=== PATIENT | male | born 1950 | race Caucasian/White ===

== ENCOUNTER → 2016-11-29 | Outpatient (CLI) | payer OTHER ==
[~2016-11-29] VITALS: Ht 188 cm; Wt 113.4 kg
[~2016-11-29] MED LIST: ALPR-411 PO; ASPI81TA28 PO; ATOR-22 PO; CHOL2000 PO; ESCI10TA17 PO; MAGN1TAB41 PO; OMEG10007 PO; PANT40TA PO; PRD/1 PO; SUMA100T16 PO; TAMS0.4C38 PO; nasonex NAE
[2016-11-29 14:46] VITALS: BP 136/85; PULSE 58; Ht 188 cm; Wt 113.4 kg
== END | disposition home or self-care (01) ==
LOC: C.NEUR 14:26
PROVIDERS: ATTEND Internal Medicine Pulmonary Disease
DX: G47.33 Obstructive sleep apnea (adult) (pediatric) (principal)

== ENCOUNTER → 2017-01-01 | Outpatient (CLI) | payer OTHER ==
--- NOTE | 2017-01-07 07:11 | POLYSOMNOGRAPH REPORT ---
CLINICAL DATA: A 66-year-old male with BMI of 32.1, referred for evaluation of loud snoring which awakens him, apnea, restlessness, bruxism, profound fatigue, and daytime hypersomnolence. On the evening of 01/01/2017, a home sleep apnea test was performed using a [employer] type 3 monitor. RECORDING RESULTS: Total recording time was 10 hours. The patient's estimated sleep time and monitoring time was 7.2 hours. RESPIRATORY DATA: Mild sleep apnea was documented. The EVERARDO was 12. There were 18 obstructive apneic episodes and 68 hypopneic episodes recorded. The longest respiratory event was 36 seconds. OXIMETRY DATA: Nocturnal hypoxemia was seen. Oxygen alaina was 80%. Mean saturation was 91%. Time below 89% was 16 minutes. HEART RATE DATA: Heart rates ranged from 44 to 51 beats per minute. SNORING DATA: Snoring was recorded throughout the night. IMPRESSION: Mild obstructive sleep apnea/hypopnea with an EVERARDO of 12 with nocturnal hypoxemia. RECOMMENDATIONS: The patient may benefit from a repeat sleep study with CPAP, use of an oral appliance, or weight loss. Clinical correlation is needed. MARIA ELENA
== END | disposition home or self-care (01) ==
LOC: C.NEUR 15:24
PROVIDERS: ATTEND Internal Medicine Pulmonary Disease
DX: G47.33 Obstructive sleep apnea (adult) (pediatric) (principal)

== ENCOUNTER → 2017-06-02 | Outpatient (CLI) | payer OTHER ==
[~2017-06-02] MED LIST changes: +CEPH500C2 PO; +HYDR-5688 PO
[2017-06-02 19:07] LABS: BASO % 1.1 %; BASO ABS # 0.05 K/uL (0-0.2); COMPLETE YES; HEMATOCRIT 42.7 % (42-52); LYMPH % 32.3 %; LYMPH ABS # 1.52 K/uL (1.2-3.4); MEAN CELL VOLUME 88.2 fL (80-100); MEAN CORPUSCULAR HEMOGLOBIN 30.8 pg (25-34); MEAN CORPUSCULAR HGB CONC 34.9 g/dl (32-36); MONO % 10.6 %; PLATELET COUNT 189 K/uL (130-400); RED BLOOD COUNT 4.84 M/uL (4.7-6.1); WHITE BLOOD COUNT 4.71 K/uL (4.8-10.8)
[2017-06-02 19:28] LABS: ALT/SGPT 35 U/L (12-78); AST/SGOT 24 U/L (15-37); BLOOD UREA NITROGEN 16 mg/dl (7-18); BUN/CREATININE RATIO 12.9 (10-20); CALCIUM 8.7 mg/dl (8.5-10.1); CARBON DIOXIDE 28 mmol/L (21-32); CHLORIDE 107 mmol/L (98-107); CHOLESTEROL 196 mg/dl (0-200); GLUCOSE 97 mg/dl (70-99); SODIUM 142 mmol/L (136-145); TRIGLYCERIDES 163 mg/dl (0-150); VERY LOW DENSITY LIPOPROT CALC 33 mg/dl
[2017-06-02 19:33] LABS: ALB/GLOB RATIO 1.1 (0.9-2); ALKALINE PHOSPHATASE 58 U/L (45-117); CHOLESTEROL/HDL RATIO 3.8; HDL CHOLESTEROL 51 mg/dl; PROSTATE SPECIFIC ANTIGEN 0.597 ng/ml (0.000-4.000)
== END | disposition home or self-care (01) ==
LOC: C.LAB 17:54
PROVIDERS: ATTEND Internal Medicine
DX: E78.5 Hyperlipidemia, unspecified (principal); F32.9 Major depressive disorder, single episode, unspecified; K42.9 Umbilical hernia without obstruction or gangrene; R30.0 Dysuria; N40.0 Benign prostatic hyperplasia without lower urinary tract symptoms

== ENCOUNTER 2017-08-07 05:16 | Observation (INO) | payer OTHER ==
[2017-07-24 07:57] VITALS: BMI 32.0
--- NOTE | 2017-07-24 08:38 | PAT Medication Instructions ---
Service Date Jul 24, 2017. Current Home Medication List Alprazolam (Xanax), 0.5 MG PO HS Aspirin (Aspirin Ec), 81 MG PO QAM Atorvastatin (Lipitor), 20 MG PO HS Cholecalciferol (Vitamin D3), 1 CAP PO QAM Escitalopram (Lexapro), 10 MG PO HS Fish Oil ([place]-3), 1 CAP PO QAM Magnesium Oxide (Magnesium), 1 TAB PO QAM Pantoprazole (Protonix), 40 MG PO QAM Prednisone (Prednisone), Unknown Dose PO Sumatriptan Succinate (Imitrex), 100 MG PO PRN Tamsulosin Hcl (Flomax), 0.4 MG PO QAM [nasonex ], 2 PUFFS NICKI QAM Medication Instructions For Your Scheduled Surgery Prednisone (Prednisone), Unknown Dose PO (to be completed prior to surgery) - Check with surgeon for instructions: Aspirin (Aspirin Ec), 81 MG PO QAM - Hold the following medications starting 07/25/17: Fish Oil ([place]-3), 1 CAP PO QAM - Hold the following medications the morning of surgery: Tamsulosin Hcl (Flomax), 0.4 MG PO QAM Magnesium Oxide (Magnesium), 1 TAB PO QAM Cholecalciferol (Vitamin D3), 1 CAP PO QAM - Take the following medications the morning of surgery with a sip of water: [nasonex ], 2 PUFFS NICKI QAM Sumatriptan Succinate (Imitrex), 100 MG PO PRN (if needed) Pantoprazole (Protonix), 40 MG PO QAM Escitalopram (Lexapro), 10 MG PO HS - Take the following medications as scheduled the night before surgery: Sumatriptan Succinate (Imitrex), 100 MG PO PRN (if needed) Atorvastatin (Lipitor), 20 MG PO HS Alprazolam (Xanax), 0.5 MG PO HS If you have any questions please call us at [phone] or [phone] or [phone]
[2017-07-24 09:54] LABS: BASO % 0.2 %; BASO ABS # 0.02 K/uL (0-0.2); COMPLETE YES; EOS % 0.1 %; HEMATOCRIT 41.6 % (42-52); LYMPH % 12.4 %; LYMPH ABS # 1.65 K/uL (1.2-3.4); MEAN CELL VOLUME 90.4 fL (80-100); MEAN CORPUSCULAR HEMOGLOBIN 30.7 pg (25-34); MEAN CORPUSCULAR HGB CONC 33.9 g/dl (32-36); MEAN PLATELET VOLUME 9.8 fL (7.4-10.4); MONO % 10.5 %; NEUT % 75.8 %; PLATELET COUNT 282 K/uL (130-400)
[2017-07-24 10:03] LABS: BUN/CREATININE RATIO 22.9 (10-20); CALCIUM 8.5 mg/dl (8.5-10.1); CREATININE 0.89 mg/dl (0.60-1.40)
[~2017-08-07] VITALS: Ht 188 cm; Wt 112.9 kg
[2017-08-07] VITALS (8 sets, daily range): BP systolic 131–195; BP diastolic 80–96; PULSE 46–63; TEMP 36.3–36.6; O2SAT 93–97; Ht 188 cm; Wt 112.9 kg
[~2017-08-07 05:16] MED LIST changes: -CEPH500C2 PO; -HYDR-5688 PO
[2017-08-07] MEDS ORDERED: LACTATED RINGER'S 1000ML 1,000 ML IV SCH (06:00)
[2017-08-07] MEDS ORDERED: CEFAZOLIN 2000 MG/60 ML D5W IV SCH (06:00)
[2017-08-07] MEDS ORDERED: CEFAZOLIN SOD 1 GM VIAL ONE (06:39)
[2017-08-07] MEDS ORDERED: BUPIVACAINE 0.5 % 5 MG/1 ML MPF 30ML VIAL ONE (06:39)
[2017-08-07] MEDS ORDERED: MIDAZOLAM HCL 1 MG/ML 2ML VIAL ONE (06:41)
[2017-08-07] MEDS ORDERED: FENTANYL CITRATE INJ 50 MCG/1 ML 2 ML VIAL ONE ×3 (06:41→08:30)
[2017-08-07] MEDS ORDERED: LIDOCAINE HCL 2% 2 ML VIAL (20MG/ML) ONE (06:42)
[2017-08-07] MEDS ORDERED: PROPOFOL IV EMULSION 10 MG/ML 20 ML VIAL IV ONE (06:43)
[2017-08-07] MEDS ORDERED: ONDANSETRON INJ 2 MG/ML 2 ML VIAL ONE (06:43)
[2017-08-07] MEDS ORDERED: ROCURONIUM BROMIDE 10 MG/ML 5 ML VIAL IV ONE (06:44)
--- NOTE | 2017-08-07 06:49 | History & Physical Bridge Note ---
H&P Re-Evaluation Bridge Note: I have examined the patient, reviewed the History & Physical and in the interval since the performance of the History & Physical I have noted the following changes of clinical significance: No changes noted
[2017-08-07] MEDS ORDERED: DEXAMETHASONE SOD INJ 4 MG/ML VIAL ONE (07:25)
[2017-08-07] MEDS ORDERED: GLYCOPYRROLATE INJ 0.2 MG/ML VIAL ONE (07:41)
[2017-08-07] MEDS ORDERED: NEOSTIGMINE METHYLSULFATE 5 MG/5 ML SYR ONE (07:41)
--- NOTE | 2017-08-07 07:59 | [facility] Operative Report ---
Operative Report Operative Date Aug 07, 2017. Pre-Operative Diagnosis Umbilical hernia Post-Operative Diagnosis Umbilical hernia Procedure(s) Performed Laparoscopic Umbilical Hernia Repair with Mesh Surgeon Dr. Jose Park Electronics Processing Supervisor Surgeon(s) Juan Brooks PA-C Estimated Blood Loss 10 mL Findings 3-4 cm defect, used 10 cm surgimesh Specimens No pathology specimens per surgeon Anesthesia gen Complication(s) None Disposition Recovery Room / PACU I attest to the content of the Intraoperative Record and any orders documented therein. Any exceptions are noted below.
[2017-08-07] MEDS ORDERED: CEPH500C2 PO (08:05)
[2017-08-07] MEDS ORDERED: HYDR-5688 PO (08:05)
--- NOTE | 2017-08-07 08:13 | OPERATIVE REPORT ---
DATE OF OPERATION: 08/07/2017 NAME OF OPERATION: Laparoscopic umbilical hernia repair. PREOPERATIVE DIAGNOSIS: Umbilical hernia. POSTOPERATIVE DIAGNOSIS: Same. STAFF SURGEON: Dr. Park. PLASTIC EYE TECHNICIAN: Quincy Brooks PA-C. PROCEDURE: The patient was brought in the operating room and placed on the operating table in supine position. His abdomen was prepped and draped in the usual fashion. Gongora catheter was placed. Pneumatic stockings and orogastric tube were placed. 0.5% plain Marcaine was used to anesthetize all incisions. Incision was made in the left upper quadrant carrying dissection down, placing a Veress needle producing pneumoperitoneum. An 11 mm port was placed at this level and then under visualization four 5 mm ports were placed, 2 in the left, 2 in the right. The patient's defect was noted at the umbilicus. It was 3-4 cm. It appeared that a 10 cm piece of mesh would be appropriate. Some of the preperitoneal adipose tissue was dissected away from the fascia. The mesh was then rolled and placed into the abdomen. A suture in the center of the mesh was brought up through the umbilical skin using a suture passer. The polypropylene was toward the fascia, the silicone was toward the bowel, the mesh was secured to the fascia using 2 rows, an outer inner row of absorbable tacks. After appropriate placement all ports were removed. The pneumoperitoneum was reduced. The fascia at the left upper quadrant closed using 0 Vicryl suture. Subcutaneous tissue reapproximated using 0 Vicryl suture, then the skin reapproximated at all sites using subcuticular 4-0 Monocryl, Dermabond at the 5 mm sites and Steri-Strips at the left upper quadrant incision. Patient transferred to recovery room in stable condition. I attest to the content of the Intraoperative Record and any orders documented therein. Any exception s are noted below.
[2017-08-07] MEDS ORDERED: HYDROCODONE/ACETAMOPHEN 5/325MG TAB PO PRN ×2 (08:15)
[2017-08-07] MEDS ORDERED: PROMETHAZINE HCL INJ 25 MG in SODIUM CHLORIDE 0.9% 50ML 50 ML IV PRN (08:15)
[2017-08-07] MEDS ORDERED: ONDANSETRON INJ 2 MG/ML 2 ML VIAL IV PRN ×2 (08:15→08:45)
[2017-08-07] MEDS ORDERED: IV FLUIDS COMPLETED PRN (08:15)
[2017-08-07] MEDS ORDERED: HYDROmorphone INJ 0.5 MG/0.5 ML SYR IV PRN (08:15)
[2017-08-07] MEDS ORDERED: HYDROmorphone INJ 1 MG/ML SYR IV PRN (08:45)
[2017-08-07] MEDS ORDERED: LABETALOL HCL IV 5 MG/ML 20ML IV PRN (08:45)
[2017-08-07] MEDS ORDERED: EpHEDrine SULFATE INJ 50 MG/ML AMP IV PRN (08:45)
[2017-08-07] MEDS ORDERED: MEPERIDINE HCL 25 MG/ML CARP IV PRN (08:45)
[2017-08-07] MEDS ORDERED: FENTANYL CITRATE INJ 50 MCG/1 ML 2 ML VIAL IV PRN (08:45)
[2017-08-07] MEDS ORDERED: HydrALAZINE HCL 20 MG/ML VIAL IV. PRN (08:45)
[2017-08-07] MEDS ORDERED: ATROPINE SULFATE 0.1 MG/ML 5ML SYR IV PRN (08:45)
[2017-08-07] MEDS ORDERED: HydrALAZINE HCL 20 MG/ML VIAL ONE (08:47)
[2017-08-07] MEDS ORDERED: TAMSULOSIN HCL 0.4 MG CAP PO ONE (09:00)
[2017-08-07] MEDS ORDERED: COUGH DROP (SUGAR FREE) LOZ 24 LOZ/1 BOX ONE (10:23)
[2017-08-07] MEDS: KETOROLAC TROMETHAMINE 15 MG/ML VIAL IV. SCH ×3 (10:37→22:23)
[2017-08-07] MEDS: LACTATED RINGER'S 1000ML 1,000 ML IV SCH (10:37)
--- NOTE | 2017-08-07 12:00 | Anesthesiology Progress Note ---
Anesthesia Post Op Note Date & Time Aug 07, 2017 at 11:59 Vital Signs Pain Intensity: 1 Vital Signs Past 12 Hours Date Time Temp Pulse Resp B/P (MAP) Pulse Ox O2 Delivery O2 Flow Rate FiO2 08/07/17 11:33 36.5 60 18 136/86 (103) 93 Room Air 08/07/17 10:45 36.5 61 18 147/88 (107) 97 Room Air 08/07/17 10:21 36.3 59 20 150/87 (108) 97 Nasal Cannula 2.0 08/07/17 09:10 36.4 55 16 142/90 96 Nasal Cannula 3 Oxymask 08/07/17 08:55 56 16 143/92 96 Nasal Cannula 3 Oxymask 08/07/17 08:45 51 12 164/99 94 Nasal Cannula 3 Oxymask 08/07/17 08:35 49 12 179/101 94 Oxymask 08/07/17 08:25 50 16 182/102 93 Oxymask 08/07/17 08:15 56 16 179/103 94 Oxymask 08/07/17 08:05 36.2 57 16 179/99 91 Oxymask 08/07/17 05:46 36.6 46 18 195/96 (129) 95 Room Air Notes Mental Status: alert / awake / arousable, participated in evaluation Pt Amnestic to Procedure: Yes Nausea / Vomiting: adequately controlled Pain: adequately controlled Airway Patency, RR, SpO2: stable & adequate BP & HR: stable & adequate Hydration State: stable & adequate Anesthetic Complications: no major complications apparent
[2017-08-07] MEDS: DOCUSATE SODIUM/SENNA 50/8.6MG TAB PO SCH ×2 (12:49→20:40)
[2017-08-07] MEDS ORDERED: PNEUMOCOCCAL POLYSACCHARIDES 25 MCG/0.5 ML VIAL/SYR IM. ONE (14:30)
[2017-08-07] MEDS ORDERED: PNEUMOCOCCAL ADMINISTRATION CHARGE ONE (14:30)
[2017-08-07] MEDS: CEFAZOLIN IV 1,000 MG in DEXTROSE 5% 50ML 50 ML IV SCH ×2 (15:39→22:23)
[2017-08-07] MEDS ORDERED: ALPRAZOLAM 0.5 MG TAB PO SCH (21:00)
[2017-08-07] MEDS ORDERED: ESCITALOPRAM OXALATE 10 MG TAB PO SCH (21:00)
[2017-08-07] MEDS ORDERED: ATORVASTATIN 20 MG TAB PO SCH (21:00)
[2017-08-08] MEDS ORDERED: NURSING VERBAL MED ORDER ONE (02:15)
[2017-08-08] MEDS ORDERED: SUMATRIPTAN SUCC TAB 100 MG TAB PO ONE (02:30)
[2017-08-08 02:46] VITALS: BP 152/82; PULSE 53; TEMP 36.6; O2SAT 95
[2017-08-08] MEDS: KETOROLAC TROMETHAMINE 15 MG/ML VIAL IV. SCH (03:37)
[2017-08-08] MEDS: LACTATED RINGER'S 1000ML 1,000 ML IV SCH (03:37)
--- NOTE | 2017-08-08 05:55 | Discharge Instructions ---
Discharge Instructions Date of Service Aug 08, 2017. Admission Reason for Admission: Umbilical Hernia Discharge Discharge Diagnosis / Problem: umbilical hernia Discharge Goals Goal(s): Decrease discomfort, Improve function, Improve disease control Activity Recommendations Activity Limitations: as noted below Lifting Limitations: no more than 25 pounds Exercise/Sports Limitations: until after follow-up appointment May Resume Sexual Activity: when tolerated Shower/Bathe: tomorrow Driving or Machine Use: resume 3 days after discharge SPECIAL CARE INSTRUCTIONS: * Cover incisions and change daily for comfort/drainage. Leave steri strips in place * * Avoid constipation- may use Milk of magnesia and Senokot S twice daily as directed on the package * May use ibuprofen for pain as tolerated. * Expect some swelling and bruising. Call your doctor if: * Temperature above 101 degrees * Pain not relieved by pain medicine ordered * There is increased drainage or redness from any incision * You have any unanswered questions or concerns [phone]. FOLLOW UP VISIT: If not already scheduled, please call the office for a follow-up visit. for 2 weeks- check up OFFICE PHONE NUMBER: Dr. Park Office . Current Hospital Diet Patient's current hospital diet: Regular Diet Discharge Diet Recommended Diet: Regular Diet Procedures Procedures Performed: Laparoscopic Umbilical Hernia Repair with Mesh Pending Studies Studies pending at discharge: no Laboratory Results Lipid Panel Test 06/02/17 18:17 Range/Units Triglycerides Level 163 H 0-150 mg/dl Cholesterol Level 196 0-200 mg/dl HDL Cholesterol 51 mg/dl LDL Cholesterol Direct 121 mg/dl Cholesterol/HDL Ratio 3.8 LDL Cholesterol, Calculated mg/dl Medical Emergencies . Who to Call and When: Medical Emergencies: If at any time you feel your situation is an emergency, please call 911 immediately. . Non-Emergent Contact Non-Emergency issues call your: Primary Care Provider, Surgeon . "Provider Documentation" section prepared by Jose Park. . VTE Core Measure Inpt VTE Proph given/why not?: SCD's
[2017-08-08] MEDS: CEFAZOLIN IV 1,000 MG in DEXTROSE 5% 50ML 50 ML IV SCH (06:13)
--- NOTE | 2017-08-08 06:13 | Discharge Summary ---
Discharge Summary Date of Service Aug 08, 2017. Discharge Summary Admission Date: Aug 07, 2017 at 08:02 Discharge Date: Aug 08, 2017 Primary Diagnosis: umbilical hernia Procedures: laparoscopic umbilical hernia repair Discharge Instructions Last Recorded Wt (Kilograms): 112.900 Allergies: Coded Allergies: No Known Allergies (Unverified , 08/07/17) Special Care: Call your doctor if: * Temperature above 101 degrees * Pain not relieved by pain medicine ordered * There is increased drainage or redness from any incision * You have any unanswered questions or concerns. Avoid all tobacco products. If you need help to stop smoking, call [facility] FREE QUITLINE at . This is a free call. Admission Information Admission HPI: h/o enlarging umbilical hernia Hospital Course adm 08/07/17- for elective lap umbilical hernia repair had some urinary retention- str cathed- now voiding well for d/c today Total time spent on discharge = This includes examination of the patient, discharge planning, medication reconciliation, and communication with other providers.
[2017-08-08 07:22] VITALS: BP 180/91; PULSE 51; TEMP 36.5; O2SAT 96
--- NOTE | 2017-08-08 08:08 | Anesthesiology Progress Note ---
Anesthesia Post Op Note Date & Time Aug 08, 2017 at 08:07 Vital Signs Pain Intensity: 7.0 Vital Signs Past 12 Hours Date Time Temp Pulse Resp B/P (MAP) Pulse Ox O2 Delivery O2 Flow Rate FiO2 08/08/17 07:22 36.5 51 19 180/91 (120) 96 Room Air 08/08/17 02:46 36.6 53 17 152/82 (105) 95 Room Air 08/07/17 23:04 36.5 58 16 154/83 (106) 95 Room Air Notes Mental Status: alert / awake / arousable, participated in evaluation Pt Amnestic to Procedure: Yes Nausea / Vomiting: adequately controlled Pain: adequately controlled Airway Patency, RR, SpO2: stable & adequate BP & HR: stable & adequate Hydration State: stable & adequate Anesthetic Complications: no major complications apparent
[2017-08-08] MEDS ORDERED: MAGNESIUM HYDROXIDE SUSP 30 ML UDC PO SCH (09:00)
[2017-08-08] MEDS ORDERED: TAMSULOSIN HCL 0.4 MG CAP PO SCH (09:00)
[2017-08-08] MEDS: DOCUSATE SODIUM/SENNA 50/8.6MG TAB PO SCH (09:03)
[2017-08-08 09:53] VITALS: BP 180/91; PULSE 51; TEMP 36.5; O2SAT 96
== END 2017-08-08 10:42 | disposition home or self-care (01) ==
LOC: C.ACU 05:16 → C.MSN 08:02 → ENRESERV 08:54
PROVIDERS: ADMIT Surgery; ATTEND Surgery
DX: K42.9 Umbilical hernia without obstruction or gangrene (principal); G47.33 Obstructive sleep apnea (adult) (pediatric); E78.00 Pure hypercholesterolemia, unspecified; Z96.651 Presence of right artificial knee joint; Z98.890 Other specified postprocedural states; Z79.82 Long term (current) use of aspirin; E66.09 Other obesity due to excess calories; Z68.32 Body mass index [BMI] 32.0-32.9, adult; Z79.899 Other long term (current) drug therapy; Z80.0 Family history of malignant neoplasm of digestive organs; Z82.49 Family history of ischemic heart disease and other diseases of the circulatory system

== ENCOUNTER → 2018-01-01 | Outpatient (CLI) | payer OTHER ==
[~2018-01-01] MED LIST changes: +CEPH500C2 PO; +HYDR-5688 PO; -PRD/1 PO
--- NOTE | 2018-01-01 08:09 | DIAGNOSTIC IMAGING REPORT ---
FUSION CT SINUSES W/O HISTORY: 67 years-old Male R51 Headache, chronic in nature. COMPARISON: None available TECHNIQUE: Multiple axial CT images of the paranasal sinuses were obtained without contrast. Axial [employer] images also submitted. A dose lowering technique was used consistent with the principals of ISABELLA. FINDINGS: There are indeterminate linear calcifications within the posterior aspect of the mid right cerebellar hemisphere, image 34 series 4 measuring up to 1.2 x 1.9 cm. Ill-defined areas of low-attenuation within the periventricular white matter suggest chronic microvascular ischemic changes. Orbits are symmetric and within normal limits. The soft tissues are unremarkable. No calvarial or facial bone fracture. Mastoid air cells and middle ear cavities are clear. Mild mucoperiosteal thickening of the bilateral maxillary, frontal, anterior and posterior ethmoid air cells. The sphenoid sinuses are clear. There is patency of the bilateral frontoethmoidal, and sphenoethmoidal recesses as well as the bilateral maxillary ostiomeatal units. Small right-sided Dilip cell, image 31 series 300. No large marcia bullosa. Minimal rightward bowing and spurring of the nasal septum. Mild mucosal thickening of the bilateral nasal turbinates. Mild degenerative changes of the bilateral temporal mandibular joints and imaged cervical spine. IMPRESSION: 1. Linear calcifications or partially calcified lesion of the posterior mid right cerebellar hemisphere measures up to 1.9 cm. Further evaluation with CT of the head recommended. 2. Mild paranasal sinus disease as above with patency of the bilateral maxillary ostiomeatal units. 3. Small right-sided Dilip cell. The above report was generated using voice recognition software. It may contain grammatical, syntax or spelling errors. Electronically signed by: Chapincito Sheehan M.D. 01/01/2018 7:55 AM Dictated Date/Time: 01/01/2018 7:48 AM
== END | disposition home or self-care (01) ==
LOC: C.CTS 07:36
PROVIDERS: ATTEND Physician Assistant
DX: R51 Headache (principal); G93.9 Disorder of brain, unspecified

== ENCOUNTER → 2018-01-13 | Outpatient (CLI) | payer OTHER ==
--- NOTE | 2018-01-13 08:02 | DIAGNOSTIC IMAGING REPORT ---
HEAD WITHOUT CONTRAST (CT) CT DOSE: 712.55 mGy.cm HISTORY: Abnormal CT sinuses ABN FINDING ON IMAGING TECHNIQUE: Multiaxial CT images of the head were performed without the use of intravenous contrast. A dose lowering technique was utilized adhering to the principles of ALARA. Comparison: CT sinuses 01/01/2018 Findings: The paranasal sinuses and mastoid air cells are clear. Mid right cerebellar calcifications within a slightly serpiginous pattern. This may represent calcification of a chronically thrombosed and a calcified vascular malformation. It appears to be nonacute. There is no significant surrounding edematous change. There is no midline shift. Density characteristics indicate minimal chronic small vessel change of aging. Ventricular system is midline. Impression: Benign-appearing calcifications of the right cerebellar hemisphere. 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 No acute process is identified. The above report was generated using voice recognition software. It may contain grammatical, syntax or spelling errors. Electronically signed by: Marquez Lopez M.D. 01/13/2018 8:01 AM Dictated Date/Time: 01/13/2018 7:58 AM
== END | disposition home or self-care (01) ==
LOC: C.CTS 07:36
PROVIDERS: ATTEND Physician Assistant
DX: R51 Headache (principal); R93.8 Abnormal findings on diagnostic imaging of other specified body structures

== ENCOUNTER → 2018-05-28 | Outpatient (CLI) | payer OTHER ==
[~2018-05-28] MED LIST changes: -CEPH500C2 PO; -HYDR-5688 PO
[2018-05-28 18:15] LABS: BASO % 0.9 %; BASO ABS # 0.05 K/uL (0-0.2); EOS % 5.8 %; EOS ABS # 0.33 K/uL (0-0.5); HEMATOCRIT 41.5 % (42-52); HEMOGLOBIN 14.6 g/dL (14.0-18.0); IG# 0.01 K/uL (0.00-0.02); LYMPH % 33.3 %; LYMPH ABS # 1.89 K/uL (1.2-3.4); MEAN CELL VOLUME 88.3 fL (80-100); MEAN CORPUSCULAR HEMOGLOBIN 31.1 pg (25-34); MEAN CORPUSCULAR HGB CONC 35.2 g/dl (32-36); MEAN PLATELET VOLUME 10.1 fL (7.4-10.4); MONO % 12.1 %; MONO ABS # 0.69 K/uL (0.11-0.59); NEUT % 47.7 %; NEUT ABS # 2.71 K/uL (1.4-6.5); PLATELET COUNT 188 K/uL (130-400); RED CELL DISTRIBUTION WIDTH SD 41.8 fL (36.4-46.3); WHITE BLOOD COUNT 5.68 K/uL (4.8-10.8)
[2018-05-28 18:39] LABS: ALBUMIN 3.8 gm/dl (3.4-5.0); ALKALINE PHOSPHATASE 70 U/L (45-117); ALT/SGPT 37 U/L (12-78); AST/SGOT 30 U/L (15-37); BLOOD UREA NITROGEN 15 mg/dl (7-18); CALCIUM 8.2 mg/dl (8.5-10.1); CARBON DIOXIDE 25 mmol/L (21-32); CHOLESTEROL 191 mg/dl (0-200); CREATININE 1.26 mg/dl (0.60-1.40); GLUCOSE 88 mg/dl (70-99); LDL CHOLESTEROL (DIRECT) 120 mg/dl; POTASSIUM 3.7 mmol/L (3.5-5.1); SODIUM 140 mmol/L (136-145); TOTAL PROTEIN 6.9 gm/dl (6.4-8.2)
== END | disposition home or self-care (01) ==
LOC: C.LAB 17:50
PROVIDERS: ATTEND Internal Medicine
DX: E78.5 Hyperlipidemia, unspecified (principal); M54.9 Dorsalgia, unspecified; R30.0 Dysuria; N40.1 Benign prostatic hyperplasia with lower urinary tract symptoms

== ENCOUNTER 2018-11-26 10:09 | Inpatient (IN) ==
--- NOTE | 2018-11-21 08:24 | Anesthesiology Consultation ---
Date of Service November 21, 2018 Assessment & Plan (1) Encounter for pre-operative examination: Plan: - Hx of glidescope intubation: Laparoscopic umbilical hernia repair with mesh= 08/07/17= Grade view 2 with glidescope #3, ETT [address] [facility] Chart Review Chart Review: Acceptable Risk for Surgery and Patient seen in Pre Admission Testing Teaching & Discussion Pre-Anesthesia Teaching/Discussion Notes: Instructed NPO after midnight before surgery,except medications with 15 cc of water. Medication instructions provided according to the PAT guidelines. History Surgery Operation Date: 11/26/18 12:25 Proposed Procedures p Right Total Knee Revision, Removal of Total Knee Implant, Transition to [facility] Nakul Camilo DO Height/Weight Height: 6 ft 2 in Weight: 115.9 kg Allergies Allergy/AdvReac Type Severity Reaction Status Date / Time No Known Allergies Allergy Verified 11/26/18 10:55 Medications Home Medications Medication Instructions Recorded Confirmed Last Taken alprazolam [Xanax] 1 tab PO HS 11/13/18 11/26/18 11/25/18 22:00 atorvastatin 20 mg PO 11/13/18 11/26/18 11/25/18 22:00 escitalopram oxalate [Lexapro] 10 mg PO QPM 11/13/18 11/26/18 11/25/18 22:00 losartan 25 mg PO QAM 11/13/18 11/26/18 11/25/18 14:00 magnesium 250 mg PO QAM 11/13/18 11/26/18 11/25/18 14:00 meloxicam 15 mg PO QAM 11/13/18 11/26/18 11/24/18 09:00 mometasone [Nasonex] 2 spray INTRANASAL QA 11/13/18 11/26/18 11/25/18 14:00 multivitamin 1 tab PO QAM 11/13/18 11/26/18 11/25/18 14:00 omega 5-vhz-sxh-fish oil [Fish Oil] 1 cap PO QAM 11/13/18 11/26/18 11/12/18 07: 00 pantoprazole [Protonix] 40 mg PO QAM 11/13/18 11/26/18 11/26/18 07:00 sumatriptan succinate [Imitrex] 1 tab PO DIRECTED PRN 11/13/18 11/26/1811/19 09:00 tamsulosin [Flomax] 0.4 mg PO BID 11/13/18 11/26/18 11/26/18 07:00 topiramate 25 mg PO BID 11/13/18 11/26/18 11/26/18 07:00 Active Medications Generic Name Dose Route Start Last Admin Trade Name Yasmine PRN Reason Stop Dose Admin Acetaminophen 1,000 mg 11/26/18 06:00 11/26/18 11:17 Tylenol PO 11/26/18 18:00 1,000 mg PREOP LUIS Administration Celecoxib 200 mg 11/26/18 06:00 11/26/18 11:15 Celebrex PO 11/26/18 18:00 200 mg PREOP LUIS Administration Dexamethasone 8 mg 11/26/18 06:00 11/26/18 11:15 Decadron PO 11/26/18 18:00 8 mg PREOP LUIS Administration Famotidine 20 mg 11/26/18 06:00 11/26/18 11:17 Pepcid PO 11/26/18 18:00 20 mg PREOP LUIS Administration Gabapentin 300 mg 11/26/18 06:00 11/26/18 11:16 Neurontin PO 11/26/18 18:00 300 mg PREOP LUIS Administration Lactated Ringer's 1,000 mls @ 999 mls/hr 11/26/18 06:00 11/26/18 11:15 Lr IV 11/26/18 18:00 999 mls/hr .Q1H1M LUIS Administration Metoclopramide HCl 10 mg 11/26/18 06:00 11/26/18 11:17 Reglan PO 11/26/18 18:00 10 mg PREOP LUIS Administration Past Medical History Medical History History of difficult intubation Laparoscopic umbilical hernia repair with mesh= 08/07/17= Grade view 2 with glidescope #3, ETT 8.[address] [facility] Bradycardia CHRONIC; BASELINE HR IN 50'S PER PATIENT; ASYMPTOMATIC Chronic back pain Depression GERD (gastroesophageal reflux disease) CONTROLLED Hyperlipidemia Hypertension Migraine Obesity Past Surgical History Surgical History History of dental surgery History of meniscectomy of left knee History of meniscectomy of right knee History of total right knee replacement Hx of LASIK B/L Hx of hand surgery MULTIPLE; "TENDON RELEASE" Hx of inguinal hernia repair B/L Hx of umbilical hernia repair Past Anesthesia History No Hx of Anesthesia Complications, Difficult Airway (Laparoscopic umbilical hernia repair with mesh= 08/07/17= Grade view 2 with glidescope #3, ETT 8.[address] [facility]) and No Family Hx of Anesthesia Complications History of PONV No Motion Sickness Screening History of Motion Sickness: No Social History Smoking Status: Former smoker Do You Dip or Chew Tobacco: No Smoking End Date: QUIT 40 YEARS AGO Hx Alcohol Use: Yes Alcohol type: wine alcohol intake frequency: holidays/special occasions only Hx Substance Use: No Exercise / Class Metabolic Activity II 4-5 Yardwork/Stairs/Walk up hill Review of Systems Patient denies chest pain, shortness of breath, dyspnea on exertion, cough, wheezing, palpitations. Physical Exam Vital Signs Last Vital Signs Temp 36.5 C 11/26/18 11:25 Resp 18 11/26/18 11:25 BP 174/108 H 11/26/18 11:25 Pulse Ox 96 11/26/18 11:25 VITALS BP 146/91 P 50 TEMP 97.9 SP02 96%RA RESP 18 Full neck and c-spine range of motion. Full TMJ range of motion. TMD 3.5 finger breaths Mallampati Score 2 Dentition: intact, 8 permanent implants "all over" Lungs: clear throughout to auscultation Cardiac: bradycardia rhythm, regular rate, no murmurs noted Spine: normal Carotid arteries: negative bruit Extremities: no edema ENMT Mouth: no dentition abnormality and dentition not poor Thyromental Distance: > or= 3.5 Finger Breadths Mallampati Class: II Neck normal visual inspection, trachea midline and + facial hair; neck extension not limited Respiratory normal respiratory effort Auscultation: lungs clear to auscultation bilaterally Cardiovascular Rate/Rhythm: regular rate and regular rhythm Heart Sounds: no murmur Vessels: no carotid bruit Musculoskeletal Spine: lumbar spine normal to inspection; normal cervical ROM Neurologic moves all extremities Motor/Sensory: no sensory deficit Psychiatric Orientation: alert and oriented x 3 Testing Electrocardiogram Date: 11/21/18 SB at 50bpm. iRBBB. NS STA. Chest X-Ray Date: 11/21/18 Findings: + NAD and + cardiomegaly (MILD) Laboratory Results 11/21/18 08:34 11/21/18 08:34 Blood Type O Positive 11/21/18 08:34 Antibody Screen NEGATIVE 11/21/18 08:34 PT 10.9 Seconds (9.0-12.0) 11/21/18 08:34 INR 1.1 (0.9-1.1) 11/21/18 08:34 APTT 27.4 Seconds (21.0-31.0) 11/21/18 08:34 Hemoglobin A1c 6.0 % (4.5-5.6) H 11/21/18 08:34 Urine Color Yellow 11/21/18 08:34 Urine Appearance Clear (Clear) 11/21/18 08:34 Urine pH 5.0 (4.5-7.5) 11/21/18 08:34 Ur Specific [place] 1.013 (1.000-1.030) 11/21/18 08:34 Urine Protein Negative (Negative) 11/21/18 08:34 Urine Glucose (UA) Negative (Negative) 11/21/18 08:34 Urine Ketones Negative (Negative) 11/21/18 08:34 Urine Nitrite Negative (Negative) 11/21/18 08:34 Ur Leukocyte Esterase Trace (Negative) H 11/21/18 08:34 Urine WBC (Auto) 1-5 /hpf (0-5) 11/21/18 08:34 Urine RBC (Auto) 0-4 /hpf (0-4) 11/21/18 08:34 U Hyaline Cast (Auto) 0 /lpf (0-5) 11/21/18 08:34 U Epithel Cells (Auto) 0-5 /lpf (0-5) 11/21/18 08:34 Urine Bacteria (Auto) Negative (Negative) 11/21/18 08:34 11/21/18 08:34 Urine Culture - Final Urine,Clean Catch No growth - less than 1,000 colonies/mL.
--- NOTE | 2018-11-21 08:29 | PAT Medication Instructions ---
Medication Instructions Date of Service November 21, 2018 Home Medications alprazolam [Xanax] 1 tab PO HS atorvastatin 20 mg PO HS escitalopram oxalate [Lexapro] 10 mg PO QPM losartan 25 mg PO QAM magnesium 250 mg PO QAM meloxicam 15 mg PO QAM mometasone [Nasonex] 2 spray INTRANASAL QAM multivitamin 1 tab PO QAM omega 8-gel-iwq-fish oil [Fish Oil] 1 cap PO QAM pantoprazole [Protonix] 40 mg PO QAM sumatriptan succinate [Imitrex] 1 tab PO DIRECTED PRN tamsulosin [Flomax] 0.4 mg PO BID topiramate 25 mg PO BID ASK your surgeon for instructions meloxicam 15 mg PO QAM STOP taking 2 weeks before surgery (or as soon as possible if surgery is within 2 weeks) omega 4-jro-qiy-fish oil [Fish Oil] 1 cap PO QAM DO NOT take the morning of surgery losartan 25 mg PO QAM magnesium 250 mg PO QAM multivitamin 1 tab PO QAM Take morning of surgery With a small sip of water, OTHERWISE NOTHING TO EAT OR DRINK AFTER MIDNIGHT: mometasone [Nasonex] 2 spray INTRANASAL QAM pantoprazole [Protonix] 40 mg PO QAM sumatriptan succinate [Imitrex] 1 tab PO DIRECTED PRN (if needed) tamsulosin [Flomax] 0.4 mg PO BID topiramate 25 mg PO BID Take evening before surgery alprazolam [Xanax] 1 tab PO HS atorvastatin 20 mg PO HS escitalopram oxalate [Lexapro] 10 mg PO QPM sumatriptan succinate [Imitrex] 1 tab PO DIRECTED PRN (if needed) tamsulosin [Flomax] 0.4 mg PO BID topiramate 25 mg PO BID Other Notes If you have any questions please call us at [phone] or [phone] or [phone] or [phone]
--- NOTE | 2018-11-21 09:04 | XRay Report ---
XR chest Pre-admission PA/Lat CLINICAL HISTORY: Preoperative evaluation. COMPARISON STUDY: No previous studies for comparison. FINDINGS: A right clavicular internal fixation is incidentally noted. The lung volumes are at the upp er limits of normal. There is no pneumothorax or pleural effusion. No consolidation or evidence for p ulmonary edema. There is mild cardiomegaly. IMPRESSION: 1. No acute cardiopulmonary findings. 2. Mild cardiomegaly. Electronically signed by: Richard Sewell M.D. 11/21/2018 9:03 AM
[2018-11-21 09:35] LABS: Basophils # (auto) 0.05 K/uL (0-0.2); Basophils % (auto) 0.7 %; Eosinophils # (auto) 0.32 K/uL (0-0.5); Eosinophils % (auto) 4.7 %; Hematocrit (blood only) 38.5 % (42-52); Hemoglobin 13.4 g/dL (14.0-18.0); Immature Granulocytes # (auto) 0.04 K/uL (0.00-0.02); Immature Granulocytes % (auto) 0.6 %; Lymphocytes # (auto) 2.32 K/uL (1.2-3.4); Lymphocytes % (auto) 34.4 %; Mean Corpuscular Hgb Conc 34.8 g/dL (32-36); Mean Corpuscular Volume 89.5 fL (80-100); Mean Platelet Volume 9.7 fL (7.4-10.4); Monocytes # (auto) 0.69 K/uL (0.11-0.59); Monocytes % (auto) 10.2 %; Neutrophils # (auto) 3.32 K/uL (1.4-6.5); Neutrophils % (auto) 49.4 %; Platelet Count 198 K/uL (130-400); RDW Coefficient of Variation 13.5 % (11.5-14.5); RDW Standard Deviation 43.9 fL (36.4-46.3); White Blood Count 6.74 K/uL (4.8-10.8)
[2018-11-21 09:40] LABS: Albumin Level 3.3 gm/dl (3.4-5.0); BUN Creatinine Ratio 17.9 (10-20); Calcium 8.9 mg/dl (8.5-10.1); Creatinine Clr Calc Pharmacy 75.9 ml/min; Est GFR (African American) 67.5; Est GFR (Non-African American) 58.2; Potassium 3.7 mmol/L (3.5-5.1)
[2018-11-21 09:44] LABS: INR 1.1 (0.9-1.1); Partial Thromboplastin Ratio 1.1; Partial Thromboplastin Time 27.4 Seconds (21.0-31.0); Prothrombin Time 10.9 Seconds (9.0-12.0)
[2018-11-21 09:59] LABS: Appearance Urine Clear (Clear); Bacteria Urine Automated Negative (Negative); Bilirubin Urine Negative (Negative); Cast Urine Automated 0 /lpf (0-5); Color Urine Yellow; Epithelial Cell Urine Auto 0-5 /lpf (0-5); Glucose Urine UA Negative (Negative); Ketones Urine Negative (Negative); Leukocyte Esterase Urine Trace (Negative); Nitrite Urine Negative (Negative); Protein Urine Negative (Negative); Specific Gravity Urine 1.013 (1.000-1.030); Urobilinogen Urine Negative (Negative)
[2018-11-21 10:05] LABS: Estimated Average Glucose 126 mg/dl
--- NOTE | 2018-11-24 09:20 | History and Physical Report ---
DATE OF ADMISSION: 11/26/2018 PROCEDURE: Right total knee revision with removal of total knee implant and transition to revision total knee replacement. HISTORY OF PRESENT ILLNESS: The patient is a 68-year-old male who presents for preoperative evaluation prior to revision right total knee replacement. By history, the patient underwent a right total knee replacement by Dr. Marquez Trotter on 11/12/2011. Implants used were a Stephanie MRI based Gender Knee size G femur, size 7 tibial plate, size 38 patellar button and a size 12 LPS liner. He presented for a second opinion with Dr. Camilo on 11/07/2018 due to continued pain and swelling. He denies any new injuries or trauma to the knee since his replacement. He states the pain has been going on for the last 6 months with increasing over the past 2-3 months. He has pain with daily activities including walking, standing, going up and down steps. He states he had his knee aspirated twice by Dr. Trotter, the most recent was sent for cultures and labs. The patient also recently underwent a bone scan on 10/16/2018, which showed a 3-phase positive bone scan on the right knee with increased uptake primarily involving the tibial plateau component concerning for loosening or infection. At this point in time, has failed conservative measures and after discussing further care, would like to proceed with revision right total knee replacement. PAST MEDICAL HISTORY: 1. Obesity. 2. Chronic back pain. 3. Depression. 4. History of migraines. 5. GERD. 6. High cholesterol. 7. Hypertension. 8. Bradycardia, chronic. The patient's baseline heart rate is in the 50s per the patient and is asymptomatic. 9. History of difficulty intubation. PAST SURGICAL HISTORY: 1. History of right total knee replacement as mentioned above. 2. Umbilical hernia repair. 3. Inguinal hernia repair. 4. Hand surgery. 5. Previous right knee arthroscopy with partial medial meniscectomy. 6. Previous left knee arthroscopy with meniscectomy as well. 7. History of bilateral Lasik eye surgery. 8. ORIF clavicle fracture age 20 FAMILY HISTORY: Noncontributory. SOCIAL HISTORY: The patient is and lives with his spouse. Former smoker. He quit 40 years ago, 1-2 alcoholic beverages per week. ALLERGIES: No known drug allergies. MEDICATIONS: 1. Xanax 1 tablet p.o. every evening. 2. Atorvastatin 20 mg daily. 3. Lexapro 10 mg daily. 4. Losartan 25 mg daily. 5. Magnesium 250 mg daily. 6. Meloxicam as needed. 7. Nasonex. 8. Multivitamin. 9. Lathrop 3. 10. Protonix 40 mg daily. 11. Imitrex 1 tablet p.o. as directed p.r.n. 12. Flomax 0.4 mg p.o. b.i.d. REVIEW OF SYSTEMS: Otherwise negative. Please see HPI for pertinent positive. PHYSICAL EXAMINATION: GENERAL: Pleasant 68-year-old male in no acute distress, alert and oriented x3, 73 inches tall, weighs 230 pounds, BMI is 30.3. VITAL SIGNS: Blood pressure 114/64. HEENT: Normocephalic, atraumatic. CARDIAC: Regular rate and rhythm. No murmurs or gallops appreciated. Resting pulse 60 beats per minute. LUNGS: Clear to auscultation without rales or wheeze bilaterally. ABDOMEN: Soft, nontender. Bowel sounds present. EXTREMITIES: Right lower extremity is neurovascularly intact. well healed surgical incision, Calf is soft, nontender. DP pulse palpable. He has mild suprapatellar effusion. There is no erythema or warmth. Has good quad tone. Straight leg raise without lag. Knee is stable to valgus, varus stress. Range of motion is 0/0/120. tender over medial tibial plateau. DIAGNOSTIC DATA: Right knee x-ray show the patient is status post right total knee replacement. No obvious signs of loosening or wear on radiographs. Bone scan performed on 10/16/2018 again shows positive uptake concerning for loosening or infection primarily involving the tibial component. LABORATORY DATA: Knee aspiration performed on 10/07/2018 showing light orange hazy color with less than 1000 wbc's, 45 neutrophils. Culture no growth, many rbc's, few wbc's, no organisms seen. 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 PLAN: Further care discussed with the patient. At this point in time, has failed conservative measures and would like to proceed with revision right total knee replacement at [facility] on 11/26/2018 to be performed by Dr. Camilo. At this point in time, would like to be discharged home with home health physical therapy. We will place on aspirin 81 mg p.o. b.i.d. for a month postop; otherwise, has no other questions or concerns. Follow up in our office 2 weeks postop for postoperative care. MARIA ELENA
[~2018-11-26 10:09] MED LIST changes: +ACETAMINOPHEN 500 MG TAB PO SCH; -ALPR-411 PO; -ASPI81TA28 PO; -ATOR-22 PO; +BUPIVACAINE 0.5 % 5 MG/1 ML PF 10ML VIAL ONE; +CEFAZOLIN 2000MG 2,000 MG/15 ML SYR IV SCH; -CHOL2000 PO; +CeleBREX 200 MG CAP PO SCH; +EPINEPHrine INJ 1 MG/ML AMP ONE; -ESCI10TA17 PO; +FAMOTIDINE 20 MG TAB PO SCH; +GABAPENTIN 300 MG PO SCH; -MAGN1TAB41 PO; +METOCLOPRAMIDE HCL 10 MG TABLET PO SCH; -OMEG10007 PO; -PANT40TA PO; +ROPIVACAINE 0.5% 5 MG/ML 30 ML VIAL ONE; +ROPIVACAINE 0.5% HCL/PF 150 MG, BUPIVACAINE 0.5% MPF 30 ML, EPINEPHrine 30MG/30ML (OR U... INFIL SCH; -SUMA100T16 PO; -TAMS0.4C38 PO; +TRANEXAMIC ACID 1,000 MG **IV Intra-op IV SCH; +TRANEXAMIC ACID 1,000 MG **IV Pre-op IV SCH; +dexAMETHasone 4 MG TAB PO SCH; -nasonex NAE
[2018-11-26] MEDS ORDERED: MIDAZOLAM HCL 1 MG/ML 2ML VIAL ONE ×2 (11:08)
[2018-11-26] MEDS ORDERED: fentaNYL citrate 100 MCG/2 ML VIAL ONE (11:09)
[2018-11-26] MEDS: LR 500ML BOLUS, THEN 15ML/HR IV SCH ×3 (11:15→16:50)
--- NOTE | 2018-11-26 11:26 | History & Physical Bridge Note ---
Date of Service November 26, 2018 History & Physical Bridge Note I have examined the patient, reviewed the History & Physical and in the interval since the performance of the History & Physical I have noted the following changes of clinical significance: no changes noted
[2018-11-26] MEDS ORDERED: ORTHO JOINT ANESTHETIC ONE (12:02)
[2018-11-26] MEDS ORDERED: POVIDONE-IODINE OP SOLN 30 ML BTL ONE (12:02)
[2018-11-26] MEDS ORDERED: BACITRACIN INJ 50,000 UNIT VIAL ONE (12:02)
[2018-11-26] MEDS ORDERED: PROPOFOL IV EMULSION 10 MG/ML 20 ML VIAL IV ONE ×5 (12:50→14:31)
--- NOTE | 2018-11-26 14:27 | Operative Report ---
Post Operative Report Pre & Post Diagnosis Operation Date: 11/26/18 12:25 Pre-Op Diagnosis: Aseptic Loosening of Right Total Knee Tibial Component Post-Op Diagnosis: Aseptic Loosening of Right Total Knee Tibial Component Procedure Operation Date: 11/26/18 12:25 Actual Procedures p Right Total Knee Revision(Right) utilizing [employer] Legion femur 7 x 18 x 162 mm offset at 12:00 with 5 mm medial and lateral distal augments tibia 7 with an 18 mm high flex poly-14 x 164 mm offset at 4:00 with removal of Stephanie aseptic loosened total knee arthroplasty- Nakul Camilo DO Surgeon Nakul Camilo DO Plate Mounter Britton KELLY Estimated Blood Loss 10 Findings Consistent with Post-Op Diagnosis Patient presents with a history of a previous right total knee arthroplasty done elsewhere with aseptic loosening of tibial component patient presents preoperative workup included sed rate C-reactive protein was within normal limits preoperative synovia sure revealed negative defense and no sign of infection cultures were negative preoperative Gram stain no organisms noted no growth intraoperative frozen sections were consistent with no acute inflammation no white cells per high-power field no sign of intraoperative infection intraoperative Gram stain revealed no organisms noted in the tibia was completely loosened the femur was easily removed as well the exam was consistent with that of aseptic loosening of the total knee arthroplasty Specimens Explant Stephanie total knee arthroplasty synovium bone Drains Medium bore Hemovac Complications none Disposition Accompanied Patient To Recovery: No Disposition: Recovery Room Indications Patient presents with a painful right total knee arthroplasty with large effusion proper workup including bone scan sed rate C-reactive protein intraoperative frozen section per high-power field as well as intraoperative Gram stain all negative for infectious etiology with an obvious aseptic loosening tibia patient had bone scan consistent with increased uptake in a aseptic loosening of the tibia preoperative sed rate C-reactive protein were unremarkable preoperative's NovaSure as well as preoperative culture all were negative for infection intraoperative Gram stain negative for grams Gram stain was negative for organisms intraoperative frozen sections at femur and tibia interface no white cells per high-power field no acute inflammation Description of Procedure After proper prepping and draping the right lower extremity incision made the region of previous midline incision and medial parapatellar incision was made a large effusion was suctioned from the knee joint synovectomy was performed the tibial implant was obviously loosened was palpably loose the femoral implant was removed utilizing a series of orders chisels as well as Ultra-Drive the there was good femoral bone stock remaining there is some loss of bone in the medial tibia to a depth of approximately 4 mm the synovium having been completely excised wound was irrigated with copious muscle sterile saline solution intraoperative frozen sections from interface of the implant and bone from tibia and femur both sent for stat frozen sections field no acute inflammation no white cells were noted intraoperative fluid analysis revealed no organisms the proximal tibia and distal femur were both reamed successively to a size 18 on the femur 14 on the tibia the distal femoral cuts and chamfer cuts were made utilizing lesion guide system 5 mm distal augments were necessary a 7 x 18 mm by 160 with 2 mm offset set at 12:00 gave excellent coverage of distal femur with excellent fit 5 mm medial lateral wedges were used the proximal tibial cuts were made utilizing intramedullary guide system to a size 7 tibia with a 14 x 160 stem 4 mm offset set at 4:00 18 mm high flex poly-gave excellent stability in both flexion extension mid flexion excellent stability was noted through all ranges of motion subcu the wound irrigated with copious amounts of sterile saline solution controlled joint mix was injected the wound having been thoroughly irrigated the wound was subsequently prepared all bony tissue was once again reevaluated for full cement in the following components the components were constructed on the back table cement was mixed the components were cemented tibia femur in that order excellent stability was noted the poly-was placed patellar tracking was noted be excellent the patella was left as is as it was not loosened the medial parapatellar incision was closed with intermittent #2 fiber wires and #1 Vicryl subcuticular 2-0 Vicryl skin was closed with skin clips sterile compressive dressings placed medium bore Hemovac in place and deep wound the patient told procedure well please note Britton KELLY was necessary for prepping draping retraction wound closure of the fascia subcu and skin was necessary for the case I attest to the content of the Intraoperative Record and any orders documented therein. Any exceptions are noted below.
[2018-11-26] MEDS ORDERED: ONDANSETRON INJ 2 MG/ML 2 ML VIAL ONE (14:36)
[2018-11-26] MEDS ORDERED: ATROPINE SULFATE 0.1 MG/ML 10ML SYR IV PRN (14:37)
[2018-11-26] MEDS ORDERED: ePHEDrine sulfate 50 MG/ML AMP IV PRN (14:37)
--- NOTE | 2018-11-26 15:47 | XRay Report ---
XR knee RT 2V routine HISTORY: 68 years-old Male Surgical Post Op right knee total joint arthroplasty. History of degenera tive joint disease COMPARISON: Right knee radiographs 10/23/2018 TECHNIQUE: 2 views of the right knee FINDINGS: Revision of right knee total joint arthroplasty with patellar resurfacing. Elongated tibial and femor al stents. Satisfactory alignment without acute fracture. Mild cortical angulation about the mid tibi al diaphysis may reflect healed fracture deformity. Anterior midline skin wellington with expected posts urgical soft tissue swelling and deep tissue air with surgical drainage catheter. IMPRESSION: Right knee total joint arthroplasty revision with satisfactory alignment. The above report was generated using voice recognition software. It may contain grammatical, syntax o r spelling errors. Electronically signed by: Chapincito Sheehan M.D. 11/26/2018 3:46 PM
--- NOTE | 2018-11-26 15:52 | Anesthesiology Progress Note ---
Date of Service November 26, 2018 Anesthesia Post Procedure Vital Signs Vital Signs: Temp Pulse Resp BP BP Pulse Ox 11/26/18 15:45 36.3 C L 56 L 19 133/86 96 11/26/18 15:35 59 L 23 129/85 96 11/26/18 15:25 60 19 118/72 95 11/26/18 15:15 62 13 123/72 97 11/26/18 15:05 36.6 C 74 19 111/62 95 11/26/18 11:25 36.5 C 18 173/113 H 174/108 H 96 Pain Intensity Right Knee: Pain Intensity: 3 Notes Mental Status: alert / awake / arousable Patient Amnestic to Procedure: Yes Nausea / Vomiting: adequately controlled Pain: adequately controlled Airway Patency, RR, SpO2: stable & adequate BP & HR: stable & adequate Hydration State: stable & adequate Neuraxial Anesthesia: was administered and sensory block is resolving Anesthetic Complications: no major complications apparent
[2018-11-26] MEDS ORDERED: MAGNESIUM HYDROXIDE SUSP 30 ML UDC PO PRN (16:25)
[2018-11-26] MEDS ORDERED: SODIUM CHLORIDE 0.9% 1000ML 1,000 ML IV SCH (16:25)
[2018-11-26] MEDS ORDERED: BISACODYL 10 MG SUPP PR PRN (16:25)
[2018-11-26] MEDS ORDERED: NALOXONE HCL 0.4 MG/1 ML VIAL/CARP IV PRN (16:25)
[2018-11-26] MEDS ORDERED: SUMAtriptan succinate 100 MG TAB PO PRN (16:25)
[2018-11-26] MEDS ORDERED: ONDANSETRON INJ 2 MG/ML 2 ML VIAL IV PRN (16:25)
[2018-11-26] MEDS ORDERED: ALUMINUM/MAGNESIUM SUSP 30 ML UDC PO PRN (16:25)
[2018-11-26] MEDS: OXYCODONE HCL IR 5 MG TAB (IMMEDIATE RELEASE) PO PRN (20:53)
[2018-11-26] MEDS: CEFAZOLIN 2000MG 2,000 MG/15 ML SYR IV SCH (20:55)
[2018-11-26] MEDS: ASPIRIN 81 MG ECTAB PO SCH (20:55)
[2018-11-26] MEDS: ATORVASTATIN 20 MG TAB PO SCH (20:55)
[2018-11-26] MEDS: SENNA 8.6 MG TAB PO SCH (21:02)
[2018-11-26] MEDS: TAMSULOSIN HCL 0.4 MG CAP PO SCH (21:02)
[2018-11-26] MEDS: TOPIRAMATE 25 MG TAB PO SCH (21:03)
[2018-11-26] MEDS: ACETAMINOPHEN 500 MG TAB PO SCH (21:03)
[2018-11-26] MEDS: DOCUSATE SODIUM 100 MG CAP PO SCH (21:03)
[2018-11-26] MEDS: HYDROmorphone INJ 0.5 MG/0.5 ML SYR IV PRN (23:52)
[2018-11-27] MEDS: OXYCODONE HCL IR 5 MG TAB (IMMEDIATE RELEASE) PO PRN ×6 (02:35→23:25)
[2018-11-27] MEDS: ACETAMINOPHEN 500 MG TAB PO SCH ×3 (05:00→21:32)
[2018-11-27] MEDS: CEFAZOLIN 2000MG 2,000 MG/15 ML SYR IV SCH (05:00)
[2018-11-27 06:39] LABS: Hematocrit (blood only) 33.3 % (42-52); Hemoglobin 11.6 g/dL (14.0-18.0); Mean Corpuscular Hgb Conc 34.8 g/dL (32-36); Mean Corpuscular Volume 88.6 fL (80-100); Platelet Count 178 K/uL (130-400); RDW Coefficient of Variation 13.6 % (11.5-14.5); RDW Standard Deviation 44.3 fL (36.4-46.3); Red Blood Count 3.76 M/uL (4.7-6.1); White Blood Count 18.74 K/uL (4.8-10.8)
[2018-11-27] MEDS ORDERED: ALPRAZolam 0.5 MG TABLET PO PRN (07:00)
--- NOTE | 2018-11-27 07:14 | Orthopedic Progress Note ---
Date of Service November 27, 2018 Assessment & Plan (1) History of revision of total replacement of right knee joint: POD #1 s/p revision right tka pt/ot dvt proph with cecille/scd/asa plan on d/c home with HHPT h/o urinary retention: altman placed yesterday evening, will resume his Flomax, d /c altmna today Insomnia- uses 0.5mg every evening, natalia restart tonight Subjective POD #1 s/p revision Right TKA denies CP/sob denies Fever/chills pain 2/10 denies any other complaints Physical Exam 2 Vital Signs (Past 24 Hours): Last Vital Signs Temp 36.4 C L 11/27/18 03:42 Pulse 55 L 11/27/18 03:42 Resp 11/27/18 03:42 BP 127/74 11/27/18 03:42 Pulse Ox 92 11/27/18 03:42 Musculoskeletal: Right leg: NVDI, calf SNT, negative andres sign. DP palpable, able to wiggle toes/ankle movement without difficulty. dressing clean dry and intact. drain output as noted below: Vital Signs Temp 36.4 C L 11/27/18 03:42 Pulse 55 L 11/27/18 03:42 Resp 17 11/27/18 03:42 BP 127/74 11/27/18 03:42 Pulse Ox 92 11/27/18 03:42 Intake & Output 11/26/18 11/27/18 11/27/18 18:59 06:59 18:59 Intake Total 2210 / 2210 1826.667 / 1826.66 7 Output Total 875 / 875 1125 / 1125 Balance 1335 / 1335 701.667 / 701.667 Weight 115.9 kg Intake: IV 910 / 910 176.667 / 176.667 Lr 1,000 ml @ 999 mls/hr IV . 800 / 800 Q1H1M [facility] Rx#: [id number] Nss 1000ML 1,0 00 ml @ 100 mls/ 176.667 / 176.667 hr IV .Q10H SC H Rx#:[id number] Cyklokapron 1, 000 mg In Sodium 110 / 110 Chloride 100 m l @ 660 mls/hr IV TODAY@0600 [facility] Rx#:[id number] IV Perioperative 1300 / 1300 Oral 1650 / 1650 Output: Estimated Blood Loss 5 / 5 Urine Amount (Ca theter) 850 / 850 1025 / 1025 Altman/Indwelli ng 850 / 850 1025 / 1025 Drain Output 100 / 100 Right Knee Hem ovac 100 / 100 Results & Data Laboratory Results Laboratory Results WBC 18.74 K/uL (4.8-10.8) H 11/27/18 06:10 RBC 3.76 M/uL (4.7-6.1) L 11/27/18 06:10 Hgb 11.6 g/dL (14.0-18.0) L 11/27/18 06:10 Hct 33.3 % (42-52) L 11/27/18 06:10 MCV 88.6 fL (80-100) 11/27/18 06:10 MCH 30.9 pg (25-34) 11/27/18 06:10 MCHC 34.8 g/dL (32-36) 11/27/18 06:10 RDW Std Deviation 44.3 fL (36.4-46.3) 11/27/18 06:10 RDW Coeff of Joi 13.6 % (11.5-14.5) 11/27/18 06:10 Plt Count 178 K/uL (130-400) 11/27/18 06:10 MPV 10.0 fL (7.4-10.4) 11/27/18 06:10 Immature Gran % (Auto) 0.6 % 11/21/18 08:34 Neut % (Auto) 49.4 % 11/21/18 08:34 Lymph % (Auto) 34.4 % 11/21/18 08:34 [place] % (Auto) 10.2 % 11/21/18 08:34 Eos % (Auto) 4.7 % 11/21/18 08:34 Baso % (Auto) 0.7 % 11/21/18 08:34 Immature Gran # (Auto) 0.04 K/uL (0.00-0.02) H 11/21/18 08:34 Neut # (Auto) 3.32 K/uL (1.4-6.5) 11/21/18 08:34 Lymph # (Auto) 2.32 K/uL (1.2-3.4) 11/21/18 08:34 [place] # (Auto) 0.69 K/uL (0.11-0.59) H 11/21/18 08:34 Eos # (Auto) 0.32 K/uL (0-0.5) 11/21/18 08:34 Baso # (Auto) 0.05 K/uL (0-0.2) 11/21/18 08:34 PT 10.9 Seconds (9.0-12.0) 11/21/18 08:34 INR 1.1 (0.9-1.1) 11/21/18 08:34 APTT 27.4 Seconds (21.0-31.0) 11/21/18 08:34 PTT Ratio 1.1 11/21/18 08:34 Sodium 140 mmol/L (136-145) 11/21/18 08:34 Potassium 3.7 mmol/L (3.5-5.1) 11/21/18 08:34 Chloride 107 mmol/L (98-107) 11/21/18 08:34 Carbon Dioxide 26 mmol/L (21-32) 11/21/18 08:34 Anion Gap 7.0 (3-11) 11/21/18 08:34 BUN 23 mg/dl (7-18) H 11/21/18 08:34 Creatinine 1.26 mg/dl (0.6-1.4) 11/21/18 08:34 Est Cr Clr Drug Dosing 75.9 ml/min 11/21/18 08:34 Est GFR ( Amer) 67.5 11/21/18 08:34 Est GFR (Non-Af Amer) 58.2 11/21/18 08:34 BUN/Creatinine Ratio 17.9 (10-20) 11/21/18 08:34 Glucose 102 mg/dl (70-99) H 11/21/18 08:34 Estimat Average Glucose 126 mg/dl 11/21/18 08:34 Hemoglobin A1c 6.0 % (4.5-5.6) H 11/21/18 08:34 Calcium 8.9 mg/dl (8.5-10.1) 11/21/18 08:34 Albumin 3.3 gm/dl (3.4-5.0) L 11/21/18 08:34 Urine Color Yellow 11/21/18 08:34 Urine Appearance Clear (Clear) 11/21/18 08:34 Urine pH 5.0 (4.5-7.5) 11/21/18 08:34 Ur Specific Mobile 1.013 (1.000-1.030) 11/21/18 08:34 Urine Protein Negative (Negative) 11/21/18 08:34 Urine Glucose (UA) Negative (Negative) 11/21/18 08:34 Urine Ketones Negative (Negative) 11/21/18 08:34 Urine Blood Negative (Negative) 11/21/18 08:34 Urine Nitrite Negative (Negative) 11/21/18 08:34 Urine Bilirubin Negative (Negative) 11/21/18 08:34 Urine Urobilinogen Negative (Negative) 11/21/18 08:34 Ur Leukocyte Esterase Trace (Negative) H 11/21/18 08:34 Urine WBC (Auto) 1-5 /hpf (0-5) 11/21/18 08:34 Urine RBC (Auto) 0-4 /hpf (0-4) 11/21/18 08:34 U Hyaline Cast (Auto) 0 /lpf (0-5) 11/21/18 08:34 U Epithel Cells (Auto) 0-5 /lpf (0-5) 11/21/18 08:34 Urine Bacteria (Auto) Negative (Negative) 11/21/18 08:34 Blood Type O Positive 11/26/18 10:55 Antibody Screen NEGATIVE 11/26/18 10:55 Crossmatch See Detail 11/26/18 10:55
[2018-11-27 07:16] LABS: BUN Creatinine Ratio 17.3 (10-20); Calcium 8.1 mg/dl (8.5-10.1); Creatinine Clr Calc Pharmacy 79.1 ml/min; Est GFR (African American) 70.9; Est GFR (Non-African American) 61.1; Potassium 3.6 mmol/L (3.5-5.1)
[2018-11-27] MEDS: LOSARTAN POTASSIUM 25 MG TAB PO SCH (08:14)
[2018-11-27] MEDS: MAGNESIUM OXIDE 400 MG TAB PO SCH (08:14)
[2018-11-27] MEDS: FERROUS GLUCONATE 324 MG TAB PO SCH ×2 (08:14→18:30)
[2018-11-27] MEDS: MULTIVITAMIN TAB PO SCH (08:15)
[2018-11-27] MEDS: TAMSULOSIN HCL 0.4 MG CAP PO SCH ×2 (08:15→20:07)
[2018-11-27] MEDS: PANTOprazole 40 MG TAB PO SCH (08:15)
[2018-11-27] MEDS: DOCUSATE SODIUM 100 MG CAP PO SCH ×2 (08:15→20:07)
[2018-11-27] MEDS: ASPIRIN 81 MG ECTAB PO SCH ×2 (08:15→20:07)
[2018-11-27] MEDS: TOPIRAMATE 25 MG TAB PO SCH ×2 (08:15→20:08)
[2018-11-27] MEDS: FLUTICASONE PROPIONATE NA SPR 16 GM BTL SCH (08:15)
[2018-11-27] MEDS ORDERED: MULTIVITAMIN TAB PO SCH (09:00)
--- NOTE | 2018-11-27 09:23 | Anesthesiology Progress Note ---
Date of Service November 27, 2018 Anesthesia Post Procedure Vital Signs Vital Signs: Temp Pulse Pulse Resp BP BP Pulse Ox 11/27/18 07:34 36.4 C L 54 L 18 138/81 93 11/27/18 03:42 36.4 C L 55 L 17 127/74 92 11/26/18 23:00 36.3 C L 57 L 17 131/74 91 11/26/18 19:16 36.3 C L 53 L 17 130/57 L 93 11/26/18 18:11 36.4 C L 52 L 20 130/80 93 11/26/18 17:31 36.3 C L 49 L 18 132/81 98 11/26/18 16:47 36.4 C L 50 L 20 148/85 H 98 11/26/18 16:15 36.3 C L 53 L 16 146/86 H 97 11/26/18 15:55 53 L 17 141/86 H 98 11/26/18 15:45 36.3 C L 56 L 19 133/86 96 11/26/18 15:35 59 L 23 129/85 96 11/26/18 15:25 60 19 118/72 95 11/26/18 15:15 62 13 123/72 97 11/26/18 15:05 36.6 C 74 19 111/62 95 11/26/18 11:25 36.5 C 18 173/113 H 174/108 H 96 Pain Intensity Right Knee: Pain Intensity: 4 Notes Mental Status: alert / awake / arousable and participated in evaluation Patient Amnestic to Procedure: Yes Nausea / Vomiting: adequately controlled Pain: adequately controlled Airway Patency, RR, SpO2: stable & adequate Hydration State: stable & adequate Neuraxial Anesthesia: was administered and sensory block is resolving Anesthetic Complications: no major complications apparent and Pt Satisfied with anesthetic care
[2018-11-27] MEDS ORDERED: PNEUMOCOCCAL POLYSACCHARIDES 25 MCG/0.5 ML VIAL/SYR IM ONE (11:15)
[2018-11-27] MEDS: HYDROmorphone INJ 0.5 MG/0.5 ML SYR IV PRN ×2 (14:31→18:29)
[2018-11-27] MEDS: ATORVASTATIN 20 MG TAB PO SCH (20:07)
[2018-11-27] MEDS: SENNA 8.6 MG TAB PO SCH (20:07)
[2018-11-28] MEDS: HYDROmorphone INJ 0.5 MG/0.5 ML SYR IV PRN (00:35)
[2018-11-28] MEDS: ACETAMINOPHEN 500 MG TAB PO SCH (05:05)
[2018-11-28] MEDS: OXYCODONE HCL IR 5 MG TAB (IMMEDIATE RELEASE) PO PRN (07:17)
[2018-11-28] MEDS: TOPIRAMATE 25 MG TAB PO SCH (07:47)
[2018-11-28] MEDS: MULTIVITAMIN TAB PO SCH (07:48)
[2018-11-28] MEDS: DOCUSATE SODIUM 100 MG CAP PO SCH (07:48)
[2018-11-28] MEDS: TAMSULOSIN HCL 0.4 MG CAP PO SCH (07:48)
[2018-11-28] MEDS: LOSARTAN POTASSIUM 25 MG TAB PO SCH (07:48)
[2018-11-28] MEDS: FERROUS GLUCONATE 324 MG TAB PO SCH (07:48)
[2018-11-28] MEDS: PANTOprazole 40 MG TAB PO SCH (07:48)
[2018-11-28] MEDS: ASPIRIN 81 MG ECTAB PO SCH (07:48)
[2018-11-28] MEDS: MAGNESIUM OXIDE 400 MG TAB PO SCH (07:48)
[2018-11-28] MEDS: FLUTICASONE PROPIONATE NA SPR 16 GM BTL SCH (07:49)
--- NOTE | 2018-11-28 10:43 | Orthopedic Progress Note ---
Date of Service November 28, 2018 Assessment & Plan (1) History of revision of total replacement of right knee joint: POD #2 s/p revision right tka pt/ot dvt proph with cecille/scd/asa plan on d/c home with HHPT today. Flomax restarted for urinary retention Subjective POD #1 s/p revision Right TKA denies CP/sob denies Fever/chills pain 2/10--pain controlled with pain medications. denies any other complaints Physical Exam 2 Vital Signs (Past 24 Hours): Last Vital Signs Temp 36.9 C 11/28/18 09:14 Pulse 50 L 11/28/18 09:14 Resp 16 11/28/18 09:14 BP 155/89 H 11/28/18 09:14 Pulse Ox 95 11/28/18 09:14 Constitutional: WD/WN, vitals as above Musculoskeletal: Knee: + surgical incision (Prevena dressing in place and functioning.); knee normal to inspection, no deformity, no skin erythema, no ecchymosis, no crepitation with knee ROM, no valgus alignment and no varus alignment Neurologic: normal touch/pain/proprioception (Dorsiflexion and plantarflexion of the right ankle is normal.)
--- NOTE | 2018-12-02 18:58 | Discharge Summary ---
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 SECONDARY DIAGNOSES: Obesity, chronic back pain, depression, history of migraine headaches, gastroesophageal reflux disease, hypercholesterolemia, hypertension, bradycardia, chronic history of being a difficult intubation. CONSULTS: None. COMPLICATIONS: None. PROCEDURES: Right total knee revision by Dr. Camilo on 11/26/2018. BRIEF HISTORY: As dictated in the history and physical. HOSPITAL SUMMARY: The patient was admitted on the above-noted date and had the above-noted surgery performed, which he tolerated well. On the first postoperative day, patient was remaining stable and vital signs are stable. He is afebrile. He had no complaints and pain was controlled. Dressings are clean, dry, and intact. Neurovascularly intact. Calves are soft, nontender. Toes were mobile. The patient was started on his physical therapy protocol and continued on DVT prophylaxis and pain management. By his second postoperative day, he continued to remain stable. Vital signs were stable. He was afebrile. Pain was controlled. He had no complaints and is progressing with his physical therapy and Prevena dressing was in place and functioning. Neurovascular is intact and it was felt he could be discharged to home on 11/28/2018. For further review, please see chart. LABORATORY AND X-RAY DATA: As per chart. DISCHARGE INSTRUCTIONS: The patient was discharged to home in satisfactory condition on 11/28/2018. DIET: Regular. ACTIVITY: Weightbearing as tolerated on right lower extremity. Follow TKA instruction sheets and special care instructions as noted. Follow up with Dr. Camilo in 2 weeks. The patient to call for appointment if one has not been made for you. DISCHARGE MEDICATIONS: Acetaminophen 1000 mg p.o. q. 8 hours, aspirin 81 mg p.o. b.i.d., oxycodone 5-10 mg p.o. q. 4 hours p.r.n. Resume home meds as listed.
== END 2018-11-28 13:16 | disposition home health service (06) | DRG 468 ==
LOC: ASU 10:09 → 3E 15:20

== ENCOUNTER 2022-01-30 08:37 | Inpatient (IN) ==
--- NOTE | 2021-11-30 13:11 | Communication Note ---
Date of Service: November 30, 2021 Positive home COVID test 11/25/21, mild symptoms improving per pt. Discussed option of PCR COVID testing prior to planned pre-op COVID test as if positive would result in surgery re-schedule without previous positive PCR test within past 3 months. He states would like to have earlier PCR COVID test and requests this at upcoming PAT appointment 12/07/2021 however if positive would require 15 day interval which would require surgery re-schedule. He states can come to PAT Saturday12/04/2021 for PCR COVID test.
--- NOTE | 2021-11-30 14:15 | PAT Medication Instructions ---
Medication Instructions Date of Service November 30, 2021 Home Medications alprazolam 0.5 mg tablet (Xanax) 1 tab PO HS atorvastatin 20 mg tablet 20 mg PO HS escitalopram oxalate 10 mg tablet (Lexapro) 10 mg PO QAM losartan 25 mg tablet 25 mg PO QAM magnesium 250 mg tablet 250 mg PO QAM mometasone 50 mcg/actuation nasal spray (Nasonex) 2 spray INTRANASAL QAM multivitamin 1 tab PO QAM omega 4-euu-yen-fish oil 1,000 mg (120 mg-180 mg) capsule (Fish Oil) 2 cap PO QAM pantoprazole 40 mg tablet,delayed release (Protonix) 40 mg PO QAM sumatriptan succinate 100 mg tablet (Imitrex) 1 tab PO DIRECTED PRN topiramate 25 mg tablet 25 mg PO QAM aspirin 81 mg tablet,delayed release (Ecotrin Low Strength) 81 mg PO QAM diclofenac sodium 50 mg tablet,delayed release 50 mg PO BID Amoxicillin 1 tab PO TID amlodipine 5 mg tablet 5 mg PO QPM tadalafil 5 mg tablet 5 mg PO HS Continue as directed Amoxicillin 1 tab PO TID ASK your surgeon for instructions diclofenac sodium 50 mg tablet,delayed release 50 mg PO BID STOP taking 2 weeks before surgery omega 3-bci-xxc-fish oil 1,000 mg (120 mg-180 mg) capsule (Fish Oil) 2 cap PO QAM DO NOT take the morning of surgery losartan 25 mg tablet 25 mg PO QAM magnesium 250 mg tablet 250 mg PO QAM multivitamin 1 tab PO QAM Take morning of surgery With a small sip of water, OTHERWISE NOTHING TO EAT OR DRINK AFTER MIDNIGHT: escitalopram oxalate 10 mg tablet (Lexapro) 10 mg PO QAM mometasone 50 mcg/actuation nasal spray (Nasonex) 2 spray INTRANASAL QAM pantoprazole 40 mg tablet,delayed release (Protonix) 40 mg PO QAM sumatriptan succinate 100 mg tablet (Imitrex) 1 tab PO DIRECTED PRN (if needed) topiramate 25 mg tablet 25 mg PO QAM aspirin 81 mg tablet,delayed release (Ecotrin Low Strength) 81 mg PO QAM Take evening before surgery alprazolam 0.5 mg tablet (Xanax) 1 tab PO HS atorvastatin 20 mg tablet 20 mg PO HS sumatriptan succinate 100 mg tablet (Imitrex) 1 tab PO DIRECTED PRN (if needed) amlodipine 5 mg tablet 5 mg PO QPM tadalafil 5 mg tablet 5 mg PO HS Other Notes If you have any questions please call us at [phone] or [phone] or [phone] or [phone]
--- NOTE | 2021-12-13 10:41 | Anesthesiology Consultation ---
Date of Service December 13, 2021 Assessment & Plan (1) Encounter for pre-operative examination: Chart Review Chart Review: Acceptable Risk for Surgery (pending surgeon ordered PCP clearance ) and Patient seen in Pre Admission Testing - Awaiting surgeon ordered PCP clearance 12/19/21 Per PAT appt on 12/13/21, patient denies any recent travel or large group activities. Pt is vaccinated for Covid. Pt tested Covid positive 11/15/21 with home test (had fever, cough, fatigue and sore throat). Did confirm Covid positive test with PCR test 12/06/21. Previous Covid symptoms have since resolved with exception to rare mild residual cough. Pt will not need any additional preop Covid testing prior to surgery as patient tested Covid positive within 90 days of surgery. Pt will not need any additional Covid contact prevautions. Per cardio phone note 11/20/21 (in regards to upcoming surgery) = "He does not require any more cardiac testing, he can proceed with the surgery from our standpoint. I do not believe he needs to be seen in our clinic prior to his surgery. However, was noted to have significantly elevated blood pressure at his last visit. I think it would be jose to double check with his primary care physician to make sure this is under control prior to his surgery." Laparoscopic umbilical hernia repair with mesh 08/07/2017 = done under [facility] with grade 2 view with glidescope #3. ETT #8.0. Atraumatic. IV induction attempted intubation with #4 MAC anterior, converted to glidescope #3 intubated. History Surgery Operation Date: 01/30/22 07:45 Proposed Procedures p L3-S1 Decompression and Fusion, Possible Interbody Cage; Spinal Cord Monitoring - Jerzy Sun DO Height/Weight Height: 6 ft 2 in Weight: 120.3 kg Allergies Allergy/AdvReac Type Severity Reaction Status Date / Time No Known Allergies Allergy Verified 11/30/21 11:53 Medications Home Medications Medication Instructions Recorded Confirmed Last Taken alprazolam 0.5 mg tablet (Xanax) 1 tab PO HS 11/13/18 11/30/21 11/25/18 22:00 atorvastatin 20 mg tablet 20 mg PO HS 11/13/18 11/30/21 11/25/18 22:00 escitalopram oxalate 10 mg tablet 10 mg PO QA 0111/30/21 11/25/18 22:00 (Lexapro) losartan 25 mg tablet 25 mg PO QAM 11/13/18 11/30/21 11/25/18 14:00 magnesium 250 mg tablet 250 mg PO QAM 11/13/18 11/30/21 11/25/18 14:00 mometasone 50 mcg/actuation nasal 2 spray INTRANASAL QAM 11/13/18 11/30/21 11/25/18 14:00 spray (Nasonex) multivitamin 1 tab PO QAM 11/13/18 11/30/21 11/25/18 14:00 omega 0-qkk-noq-fish oil 1,000 mg 2 cap PO QAM 11/13/18 11/30/21 11/12/18 07:00 (120 mg-180 mg) capsule (Fish Oil) pantoprazole 40 mg tablet,delayed 40 mg PO QAM 11/13/18 11/30/21 11/26/18 07:00 release (Protonix) sumatriptan succinate 100 mg 1 tab PO DIRECTED PRN 11/13/18 11/30/21 11/19/18 09:00 tablet (Imitrex) topiramate 25 mg tablet 25 mg PO QAM 11/13/18 11/30/21 11/26/18 07:00 aspirin 81 mg tablet,delayed 81 mg PO QAM tab 03/22/21 11/30/21 Unknown release (Ecotrin Low Strength) diclofenac sodium 50 mg 50 mg PO BID 03/22/21 11/30/21 Unknown tablet,delayed release Amoxicillin 1 tab PO TID 11/30/21 11/30/21 Unknown amlodipine 5 mg tablet 5 mg PO QPM 11/30/21 11/30/21 Unknown tadalafil 5 mg tablet 5 mg PO HS 11/30/21 11/30/21 Unknown Past Medical History Medical History (Updated 12/13/21 @ 14:31 by Mayi Williamson PA-C) Bradycardia Chronic, baseline HR in 50s per pt, asymptomatic CAD (coronary artery disease) Nonobstructive moderate left main CAD per 10/26/2021 cath. Medical therapy recommended. Chronic back pain Depression GERD (gastroesophageal reflux disease) UNDER CONTROL History of COVID-19 PT HAD POSITIVE HOME COVID TEST 11/25/21-COUGH, SEVERE SORE THROAT, FATIGUE, FEVER 104'F- TREATED WITH 10 DAY COURSE AMOXICILLIN FROM PCP-SYMPTOMS IMPROVED Confirmed with PCR test 12/06/21= positive Hyperlipidemia Hypertension Migraine Obesity Urinary frequency Exercise / Class Metabolic Activity II 4-5 Yardwork/Stairs/Walk up hill (one flight of stairs - no chest pain or SOB ) Past Family History Family History Aunt Diabetes Father Heart disease Mother Colon cancer Hypertension Other No family history of adverse response to anesthesia Past Surgical History Surgical History History of colonoscopy 08/2021 History of dental surgery History of difficult intubation Laparoscopic umbilical hernia repair with mesh (08/07/17): Grade view 2 with glidescope #3, ETT 8.0 at [facility] History of meniscectomy of left knee History of meniscectomy of right knee History of revision of total knee arthroplasty Right TKA revision (11/26/18): SAB at L3-L4 (x1 attempt) + PNB at [facility] History of total right knee replacement Hx of hand surgery LEFT HAND > MULTIPLE; "TENDON RELEASE" Hx of inguinal hernia repair RT/LEFT Hx of LASIK Hx of umbilical hernia repair Past Anesthesia History No Hx of Anesthesia Complications (with exception to one episode of difficult intubation ), Difficult Airway (Glidescope used with 2017 surgery ) and No Family Hx of Anesthesia Complications History of PONV No Hx of PONV and No Hx of Motion Sickness Social History Smoking Status: Former smoker tobacco type: cigarettes Do You Dip or Chew Tobacco: No Smoking End Date: QUIT 40+ YRS AGO Hx Alcohol Use: Yes Alcohol type: wine alcohol intake frequency: a few times a month Hx Substance Use: No substance use type: does not use Review of Systems Patient denies chest pain, shortness of breath, dyspnea on exertion, cough, wheezing, palpitations. No hx of seizures, stroke, VA, apnea/snoring. No hx of blood clots or blood transfusions Physical Exam Vital Signs VITALS BP 149/80 P 52 TEMP 97.9 SP02 97% RESP 16 Constitutional no acute distress ENMT Mouth: no TMJ clicking Thyromental Distance: < 3.5 Finger Breadths (3.0) Mallampati Class: II Permanent implant to molars Neck + limited neck extension (mild ) Respiratory normal respiratory effort; no respiratory distress Auscultation: lungs clear to auscultation bilaterally; no wheezes Cardiovascular Rate/Rhythm: regular rate and regular rhythm Heart Sounds: no murmur Vessels: no carotid bruit Musculoskeletal Spine: no pain with cervical ROM Extremities: extremities normal to inspection Psychiatric Orientation: alert Lab Results Anesthesia Preop Results Results Anesthesia Widget: WBC 5.47 K/uL (4.8-10.8) 12/13/21 Hgb 13.1 g/dL (14.0-18.0) L 12/13/21 Hct 39.4 % (42-52) L 12/13/21 Plt 250 K/uL (130-400) 12/13/21 Na 141 mmol/L (136-145) 12/13/21 K 4.0 mmol/L (3.5-5.1) 12/13/21 Cl 110 mmol/L (98-107) H 12/13/21 CO2 27 mmol/L (21-32) 12/13/21 BUN 19 mg/dl (6-23) 12/13/21 Creat 1.18 mg/dl (0.6-1.4) 12/13/21 Glucose Level 95 mg/dl (70-99(Fasting)) 12/13/21 PT 10.8 Seconds (9.0-12.0) 12/13/21 PTT 27.1 Seconds (21.0-31.0) 12/13/21 INR 1.1 (0.9-1.1) 12/13/21 Urine Color Yellow 12/13/21 Urine Appearance Clear (Clear) 12/13/21 Urine pH 5.0 (4.5-7.5) 12/13/21 Urine Specific [place] 1.021 (1.000-1.030) 12/13/21 Urine Protein Negative (Negative) 12/13/21 Urine Glucose (UA) Negative (Negative) 12/13/21 Urine Ketones Negative (Negative) 12/13/21 Urine Blood Negative (Negative) 12/13/21 Urine Nitrite Negative (Negative) 12/13/21 Urine Bilirubin Negative (Negative) 12/13/21 Urine Urobilinogen Negative (Negative) 12/13/21 Urine Leukocyte Esterase Negative (Negative) 12/13/21 Blood Type O Positive 12/13/21 Antibody Screen NEGATIVE 12/13/21 Testing Electrocardiogram Date: 09/14/21 Sinus rhythm at 61 bpm. Incomplete right bundle branch block. Nonspecific ST-T wave abnormality. Chest X-Ray Date: 12/13/21 Findings: + NAD Unchanged 6 mm focus of the lateral left lung base suggestive of a probable calcified granuloma versus nipple shadow, unchanged. Stress Test Date: 09/27/21 Type: exercise (Echo) Resting EF: 55-60% Resting LV Function: normal Valvular Disease: MR (Mild) Abnormal exercise echocardiogram with evidence of inducible ischemia. Significant baseline hypertension. MPHR 91%. 7 METS achieved. Cardiac Catheterization Date: 10/26/21 Left main: Left main coronary artery was normal in size and caliber and trifurcated into the left anterior descending and a very high OM branch and a left circumflex. There was approximately 50% stenosis at the distal left main. Left anterior descending colon left anterior descending was a large transapical vessel. It produced a large first diagonal branch and 2 smaller additional diagonal branches. No obstructive disease in this vessel Left circumflex: The left circumflex was a codominant vessel. It produced a high and large branching OM1 and a medium sized codominant PDA. There were luminal irregularities but no discrete stenosis in the left circumflex Right coronary artery: The right coronary artery had luminal irregularities and a discrete 60 to 70% stenosis in a distal branch. Plan: invasive evaluation of distal left main Cardiac Cath 10/26/21 (to further evaluation distal LM vessel): Summary: 1. Nonobstructive moderate left main coronary artery disease (FFR 0.84). Recommendations: Continued ASCVD risk factor modification per Dr. Iglesias, Dr. Lowry.
[~2022-01-30 08:37] MED LIST changes: -BUPIVACAINE 0.5 % 5 MG/1 ML PF 10ML VIAL ONE; -CEFAZOLIN 2000MG 2,000 MG/15 ML SYR IV SCH; -EPINEPHrine INJ 1 MG/ML AMP ONE; -FAMOTIDINE 20 MG TAB PO SCH; +GABAPENTIN 300 MG CAP PO SCH; -GABAPENTIN 300 MG PO SCH; +LR 15ML/HR IV SCH; -METOCLOPRAMIDE HCL 10 MG TABLET PO SCH; -ROPIVACAINE 0.5% 5 MG/ML 30 ML VIAL ONE; -ROPIVACAINE 0.5% HCL/PF 150 MG, BUPIVACAINE 0.5% MPF 30 ML, EPINEPHrine 30MG/30ML (OR U... INFIL SCH; -TRANEXAMIC ACID 1,000 MG **IV Intra-op IV SCH; -TRANEXAMIC ACID 1,000 MG **IV Pre-op IV SCH; -dexAMETHasone 4 MG TAB PO SCH
[2022-01-30] MEDS ORDERED: fentaNYL citrate 100 MCG/2 ML VIAL ONE ×3 (09:43→13:00)
[2022-01-30] MEDS ORDERED: MIDAZOLAM HCL 1 MG/ML 2ML VIAL ONE (09:43)
--- NOTE | 2022-01-30 10:09 | History & Physical Bridge Note ---
Date of Service January 30, 2022 History & Physical Bridge Note I have examined the patient, reviewed the History & Physical and in the interval since the performance of the History & Physical I have noted the following changes of clinical significance: no changes noted
--- NOTE | 2022-01-30 10:10 | History & Physical Report ---
Date of Service January 30, 2022 Assessment & Plan (1) Neurogenic claudication due to lumbar spinal stenosis: Plan: L3-S1 decompression fusion, possible interbody cage History of Present Illness Chief Complaint: Back and bilateral leg pain Primary Care Provider: Marcelo Lowry MD This is a 71-year-old male presents with chronic persistent back and bilateral leg pain. Failing extensive course of nonoperative care is here for surgical invention. Allergies Allergy/AdvReac Type Severity Reaction Status Date / Time No Known Allergies Allergy Verified 01/30/22 08:53 Home Medications Medication Instructions Recorded Confirmed Type alprazolam 0.5 mg tablet (Xanax) 1 tab PO HS 11/13/18 01/30/22 History atorvastatin 20 mg tablet 20 mg PO HS 11/13/18 01/30/22 History escitalopram oxalate 10 mg tablet 10 mg PO QAM 11/13/18 01/30/22 History (Lexapro) losartan 25 mg tablet 25 mg PO QAM 11/13/18 01/30/22 History magnesium 250 mg tablet 250 mg PO QAM 11/13/18 01/30/22 History mometasone 50 mcg/actuation nasal 2 spray INTRANASAL QAM 11/13/18 01/30/22 History spray (Nasonex) multivitamin 1 tab PO QAM 11/13/18 01/30/22 History omega 1-sht-tgy-fish oil 1,000 mg 2 cap PO QAM 11/13/18 01/30/22 History (120 mg-180 mg) capsule (Fish Oil) pantoprazole 40 mg tablet,delayed 40 mg PO QAM 11/13/18 01/30/22 History release (Protonix) sumatriptan succinate 100 mg 1 tab PO DIRECTED PRN 11/13/18 01/30/22 History tablet (Imitrex) topiramate 25 mg tablet 25 mg PO QAM 11/13/18 01/30/22 History aspirin 81 mg tablet,delayed 81 mg PO QAM tab 03/22/21 01/30/22 History release (Ecotrin Low Strength) diclofenac sodium 50 mg 50 mg PO BID 03/22/21 01/30/22 History tablet,delayed release Amoxicillin 1 tab PO TID 11/30/21 01/30/22 History tadalafil 5 mg tablet 5 mg PO HS 11/30/21 01/30/22 History amlodipine 5 mg tablet 5 mg PO QPM 01/26/22 01/30/22 History Past Med/Surg History Medical History (Updated 01/30/22 @ 10:10 by Jerzy Sun DO) Bradycardia Chronic, baseline HR in 50s per pt, asymptomatic CAD (coronary artery disease) Nonobstructive moderate left main CAD per 10/26/2021 cath. Medical therapy recommended. Chronic back pain Depression Diverticulitis GERD (gastroesophageal reflux disease) UNDER CONTROL History of COVID-19 PT HAD POSITIVE HOME COVID TEST 11/25/21-COUGH, SEVERE SORE THROAT, FATIGUE, FEVER 104'F- TREATED WITH 10 DAY COURSE AMOXICILLIN FROM PCP-SYMPTOMS IMPROVED Confirmed with PCR test 12/06/21= positive Hyperlipidemia Hypertension Migraine Obesity Urinary frequency Surgical History History of colonoscopy 08/2021 History of dental surgery History of difficult intubation Laparoscopic umbilical hernia repair with mesh (08/07/17): Grade view 2 with glidescope #3, ETT 8.0 at [facility] History of meniscectomy of left knee History of meniscectomy of right knee History of revision of total knee arthroplasty Right TKA revision (11/26/18): SAB at L3-L4 (x1 attempt) + PNB at [facility] History of total right knee replacement Hx of hand surgery LEFT HAND > MULTIPLE; "TENDON RELEASE" Hx of inguinal hernia repair RT/LEFT Hx of LASIK Hx of umbilical hernia repair Family History Aunt Diabetes Father Heart disease Mother Colon cancer Hypertension Other No family history of adverse response to anesthesia Social History Smoking Status: Former smoker Tobacco Type: Cigarettes Age Quit Using Tobacco: 30; Smoking End Date: QUIT 40+ YRS AGO; Second Hand Exposure: Yes ( A CHILD); Do You Dip or Chew Tobacco: No; Hx Alcohol Use: Yes Alcohol type: wine Alcohol Intake Frequency: Monthly or Less Hx Substance Use: No Preferred Language: Moldovan Lease Examiner Required: No Beliefs That Will Affect Care: None Current Living Situation: Spouse Other Information That Helps Us Care for You: No Feels Safe at Home: Yes Safety Concerns: Feels Safe At This Time Assistive Devices: Glasses Assistive Devices Comment: IMPLANTS FRONT UPPER AND LOWER Physical Exam Physical Exam: Patient is alert and oriented Heart regular rhythm Lungs clear Results & Data ([facility]) Vital Signs (Past 12 Hours) Vital Signs Temp Pulse Resp BP Pulse Ox 01/30/22 09:00 36.6 C 52 L 18 167/94 H 98
[2022-01-30] MEDS ORDERED: SUGAMMADEX SODIUM 200 MG/2 ML VIAL IV ONE (10:16)
[2022-01-30] MEDS ORDERED: PROMETHAZINE HCL 6.25 MG in SODIUM CHLORIDE 0.9% 50 ML IV PRN (10:28)
[2022-01-30] MEDS ORDERED: ePHEDrine sulfate 50 MG/ML AMP IV PRN (10:28)
[2022-01-30] MEDS ORDERED: ATROPINE SULFATE 0.1 MG/ML 10ML SYR IV PRN (10:28)
[2022-01-30] MEDS ORDERED: HYDROmorphone INJ 2 MG/ML SYR/VIAL IV PRN (10:28)
[2022-01-30] MEDS ORDERED: ONDANSETRON INJ 2 MG/ML 2 ML VIAL IV PRN ×2 (10:28→15:15)
[2022-01-30] MEDS ORDERED: BUPIVACAINE 0.5 % 5 MG/1 ML MPF 30ML VIAL ONE (10:32)
[2022-01-30] MEDS ORDERED: ceFAZolin 330 MG/ML 1 GM VIAL ONE (10:32)
[2022-01-30] MEDS ORDERED: EPINEPHrine INJ 1 MG/ML AMP ONE (10:32)
[2022-01-30] MEDS ORDERED: ONDANSETRON INJ 2 MG/ML 2 ML VIAL ONE (11:05)
[2022-01-30] MEDS ORDERED: GLYCOPYRROLATE 0.2 MG/ML VIAL ONE (11:05)
[2022-01-30] MEDS ORDERED: ROCURONIUM BROMIDE 10 MG/ML 5 ML VIAL IV ONE (11:05)
[2022-01-30] MEDS ORDERED: SUCCINYLCHOLINE CHLORIDE 20 MG/ML 10 ML VIAL IV ONE (11:05)
[2022-01-30] MEDS ORDERED: PROPOFOL IV EMULSION 10 MG/ML 20 ML VIAL IV ONE (11:05)
[2022-01-30] MEDS ORDERED: DEXAMETHASONE SOD INJ 4 MG/ML VIAL ONE (11:05)
[2022-01-30] MEDS ORDERED: FLOSEAL HEMOSTATIC MATRIX 10ML TOP ONE (11:22)
--- NOTE | 2022-01-30 13:48 | Operative Report ---
Post Operative Report Pre & Post Diagnosis Operation Date: 01/30/22 10:00 Pre-Op Diagnosis: Neurogenic claudication due to lumbar spinal stenosis L3-S1 Post-Op Diagnosis: Neurogenic claudication due to lumbar spinal stenosis L3-S1 I identified the patient and participated in the time-out.: Yes Procedure Operation Date: 01/30/22 10:00 Actual Procedures #1 lumbar decompression with bilateral medial facetectomies and foraminotomies L2-L3, L3-L4, L4-5 and L5-S1. #2 posterior spinal fusion L3-S1. #3 placement posterior segmental instrumentation L3-S1. #4 interbody fusion L3-L4, L4-5 and L5-S1. #5 placement of Spira titanium cage 13 x 26 at L3-L4, 14 x 26 at L4-5 and 15 x 26 at L5-S1. #6 placement locally harvested morselized autograft in the posterior gutters. #7 placement of I factor combined with the toxin interbody space and posterior lateral gutters. Surgeon Jerzy Sun, DO Line Fisher None Estimated Blood Loss 650 Findings See Below Patient is 6 foot 2 inches tall weighing over 115 kg with a BMI in excess of 32. The patient body habitus did contribute to significant technical difficulty required deepest retractors longus instruments in order to perform this procedure. This at least 50% increased operative time. Specimens None Indications This is a 71-year-old male who presents with bulge diagnosis after failing course of nonoperative care is here for the above-mentioned seizure. Description of Procedure Patient was met with identified informed consent obtained. Patient was then taken to the operative suite underwent ablation placed in a prone position injectable Daiana frame. All bony prominences well-padded eyes inspected to ensure no external pressure placed upon the. This point lumbar spine was prepped and draped in a sterile fashion. Sharp dissection with the assistance of Bovie cautery performed down to and exposing the lamina and transverse processes of L3 L4-5 and the sacral ala bilaterally. From caudal to cephalad fashion complete laminectomy of L5 L4 L3 and partial laminectomy of L2 was performed including bilateral medial facetectomies and foraminotomies addressing severe spinal stenosis. Pedicle screws were then placed at L3-L4-L5 and S1 levels bilaterally in the process josé luis placed. By way of a transforaminal portion left complete discectomy of L5-S1 was performed endplates curetted to subcortically bone and a 15 x 26 mm Spira cage filled with I factor tapped in position. Then proceeded L4-L5 again by way of a transforaminal portion left complete discectomy performed endplates curetted to subcortical being bone and a 14 x 26 mm spiral cage filled with I factor tapped in position. Lastly patient presented to L3-L4. Again by way of a transforaminal approach on the left complete discectomy was performed endplates curetted to subcortically bone and a 13 x 26 mm Spira cage filled I factor tapped in position. The rods were then compressed locked into final position bilaterally but the transverse processes of L3 L4-5 and sacral ala burred to subcortical bleeding bone. I factor combined with Vitoss and locally harvested morselized autograft was then placed in the posterior lateral gutters 15 round LUANA drain inserted. The incision was then closed with 1 Vicryl the fascia 2-0 Vicryl subcutaneously and 4 Monocryl for final skin closure. Steri-Strip sterile dressing was placed. Patient will continue PACU stable condition. Please note spinal cord monitoring was utilized at the procedure no changes noted. I attest to the content of the Intraoperative Record and any orders documented therein. Any exceptions are noted below.
--- NOTE | 2022-01-30 13:57 | Fluoroscopy Report ---
FL lumbar spine 2-3V CLINICAL HISTORY: L3-S1 DECOMPRESSION AND FUSION TECHNIQUE: 2 views were obtained with the C-arm in the OR with the above procedure. Total fluoroscopy time was 36.3 seconds. Total skin dose was 25.15 mGy. Comparison: None available at the time of this dictation. FINDINGS/IMPRESSION: Intraoperative images were obtained of L3-S1 discectomy and fusion. Please correlate with intraoperative fluoroscopy and operative report. ACT 112: Negative or not required by law. Electronically signed by: Joaquim Quiñonez M.D. 01/30/2022 1:55 PM
[2022-01-30] MEDS: fentaNYL citrate 100 MCG/2 ML VIAL IV PRN ×2 (14:33→14:41)
--- NOTE | 2022-01-30 14:59 | Anesthesiology Progress Note ---
Date of Service January 30, 2022 Anesthesia Post Procedure Vital Signs Vital Signs: Temp Pulse Pulse Resp BP Pulse Ox 01/30/22 14:50 71 12 154/81 H 88 L 01/30/22 14:40 68 16 167/88 H 98 01/30/22 14:30 72 19 168/90 H 97 01/30/22 14:20 72 16 147/89 H 91 01/30/22 14:10 73 17 169/97 H 94 01/30/22 14:00 78 19 166/97 H 94 01/30/22 13:53 36.3 C L 83 19 172/100 H 92 01/30/22 09:00 36.6 C 52 L 18 167/94 H 98 Pain Intensity Back: Pain Intensity: 5 Transfer of Care Handoff Completed per policy Notes Mental Status: alert / awake / arousable and participated in evaluation Patient Amnestic to Procedure: Yes Nausea / Vomiting: adequately controlled Pain: adequately controlled Airway Patency, RR, SpO2: stable & adequate BP & HR: stable & adequate Hydration State: stable & adequate Anesthetic Complications: no major complications apparent and Pt Satisfied with anesthetic care
[2022-01-30] MEDS ORDERED: ONDANSETRON 4 MG OD TAB PO PRN (15:15)
[2022-01-30] MEDS ORDERED: HYDROmorphone INJ 1 MG/ML SYRINGE IV PRN (15:15)
[2022-01-30] MEDS ORDERED: HYDROmorphone INJ 0.5 MG/0.5 ML SYR IV PRN (15:15)
[2022-01-30] MEDS ORDERED: METOCLOPRAMIDE HCL INJ 5 MG/ML 2 ML VIAL IV PRN (15:15)
[2022-01-30] MEDS ORDERED: DO NOT ADMINISTER PNEUMOCOCCAL VACCINE PRN (15:15)
[2022-01-30] MEDS ORDERED: PROMETHAZINE HCL 12.5 MG in SODIUM CHLORIDE 0.9% 50 ML IV PRN (15:15)
[2022-01-30] MEDS ORDERED: DO NOT ADMINISTER FLU VACCINE PRN (15:15)
[2022-01-30] MEDS ORDERED: ACETAMINOPHEN 1,000 MG/100 ML VIAL IV PRN (15:15)
[2022-01-30] MEDS ORDERED: NALOXONE HCL 0.4 MG/1 ML VIAL/CARP IV PRN (15:15)
[2022-01-30] MEDS ORDERED: diphenhydrAMINE Capsule 25 MG CAP PO PRN (15:15)
[2022-01-30] MEDS ORDERED: LORazepam 0.5 MG TAB PO PRN (15:15)
[2022-01-30] MEDS ORDERED: bisacodyL 10 MG SUPP PR PRN (15:15)
[2022-01-30] MEDS ORDERED: MAGNESIUM HYDROXIDE SUSP 30 ML UDC PO PRN (15:15)
[2022-01-30] MEDS ORDERED: SUMAtriptan succinate 100 MG TAB PO PRN (15:15)
[2022-01-30] MEDS ORDERED: FAMOTIDINE 20 MG TAB PO PRN (15:15)
[2022-01-30] MEDS ORDERED: hydrOXYzine HCl 25 MG TAB PO PRN (15:15)
[2022-01-30] MEDS ORDERED: traMADol HCL 50 MG TABLET PO PRN (15:15)
[2022-01-30] MEDS ORDERED: ALUMINUM/MAGNESIUM SUSP 30 ML UDC PO PRN (15:15)
[2022-01-30] MEDS ORDERED: SOD PHOSPHATE/SOD BIPHOSPHATE ENEMA 132 ML BTL PR PRN (15:15)
[2022-01-30] MEDS ORDERED: LORazepam 2 MG/1 ML VIAL IV PRN (15:15)
[2022-01-30] MEDS: oxyCODONE HCL IR 5 MG TAB (IMMEDIATE RELEASE) PO PRN ×2 (15:54→19:51)
[2022-01-30] MEDS: SODIUM CHLORIDE 0.9% 1000ML 1,000 ML IV SCH ×2 (15:54→23:06)
--- NOTE | 2022-01-30 17:20 | Hospitalist Consultation ---
Date of Consultation January 30, 2022 Assessment & Plan (1) Neurogenic claudication due to lumbar spinal stenosis: S/p decompression and fusion by Dr. Sun - Pain control per primary team- appropriate with rescue Narcan available - ABX per primary team - IVF per primary team - Drain and altman per primary team - Diet per primary team - PT/OT per primary team - VTE prophylaxis per primary team- SCDs, ASA - Transfusion needs per primary team (2) Diverticulitis: Reported during evaluation - Seen at [place] [phone]- no answer at patient records for review/clarification - Script started 22March- for 14 days- Amox/clav 875- BID- defer to day team to d/c date - Asymptomatic (3) Hypertension: Losartan- 50mg QAM Amlodopine 5mg PO Daily- continue (4) CAD (coronary artery disease): Continue ASA Continue ARB Continue Atorvastatin 20mg (5) GERD (gastroesophageal reflux disease): Continue oral PPI while on Decadron - stopped H2 (6) Hyperlipidemia: Atorvastatin 20mg PO Qhs (7) Obesity: Continue with weight loss efforts to decrease 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 Chart reviewed. I agree with assessment and plan as above. In brief, patient is a pleasant 71yo male with history of nonobstructive CAD, HTN, GERD, recent diagnosis of acute diverticulitis on Augmentin x 14 days. Patient with neurogenic claudication secondary to lumbar spinal stenosis s/p L3-S1 decompression and fusion performed by Dr. Sun on 01/30/22. Surgery went well. No complications identified. EBL 650mL. Patient is resting comfortably. Altman in place. No BM yet. Ate dinner without issue. Pain is well controlled. NO nausea On Exam he is afebrile, HD stable, nontoxic Resting comfortable in lateral recumbant postion Dressings c/d/i, J/P drain in place with small amount of serosanguinous drainage +S1/S2, regular, no m/r/g Lungs CTA Abd soft, NT/ND with normoactive bowel sounds Ext warm, SCDs in place Assessment/Plan -Pain control, anti-emetics, PT/OT and discharge planning per primary team -Continue home medications as above with adjustment to Losartan -Administer final day of Augmentin to complete course Remainder as above History of Present Illness Reason for Consultation: Post-operative medical management Attending Physician: Jerzy Sun DO History of Present Illness 71 YOM with past medical history of: Back pain, anxiety, Migraine, CAD (LAD nonobstructing), HTN, HLD, GERD, Obesity, Depression, BPH, OA. The patient is POD #0 from lumbar decompression and fusion of L3-S1 secondary to neurogenic claudication. EBL was 650 ml The hospitalist service was consulted for medical management. The patient was evaluated in his room on the [place]. He was briskly awake, on room air, pain controlled and without nausea or vomiting. His vital signs were reviewed. He has tolerated water and Jello thus far. During interview patient endorses that he had a bout of diarrhea and abdominal pain about 10 days ago and was diagnosed with diverticulitis at OSH and was placed on Augmentin/clav every 8 hours and had a few days left of this prescription. Pharmacy review shows this being filled on January 16 for 14 days, which would end tomorrow. Will attempt to call [facility] [place] and obtain imaging and records for verification/clarification. He does not endorse any fevers, abdomen is not tender anymore and his bowel movements have returned to normal. Will place back on amox/clav 875 BID. Recommendations - Continue Augmentin/Clav BID for at least next 24 hours - Increased Losartan to 50mg as this was done at PCP visit 12/19- follow renal indices in the morning and can likely restart in morning Allergies Allergy/AdvReac Type Severity Reaction Status Date / Time No Known Allergies Allergy Verified 01/30/22 08:53 Home Medications Medication Instructions Recorded Confirmed Type alprazolam 0.5 mg tablet (Xanax) 1 tab PO HS 11/13/18 01/30/22 History atorvastatin 20 mg tablet 20 mg PO HS 11/13/18 01/30/22 History escitalopram oxalate 10 mg tablet 10 mg PO QAM 11/13/18 01/30/22 History (Lexapro) losartan 25 mg tablet 25 mg PO QAM 11/13/18 01/30/22 History magnesium 250 mg tablet 250 mg PO QAM 11/13/18 01/30/22 History mometasone 50 mcg/actuation nasal 2 spray INTRANASAL QAM 11/13/18 01/30/22 History spray (Nasonex) multivitamin 1 tab PO QAM 11/13/18 01/30/22 History omega 1-mbo-kwq-fish oil 1,000 mg 2 cap PO QAM 11/13/18 01/30/22 History (120 mg-180 mg) capsule (Fish Oil) pantoprazole 40 mg tablet,delayed 40 mg PO QAM 11/13/18 01/30/22 History release (Protonix) sumatriptan succinate 100 mg 1 tab PO DIRECTED PRN 11/13/18 01/30/22 History tablet (Imitrex) topiramate 25 mg tablet 25 mg PO QAM 11/13/18 01/30/22 History aspirin 81 mg tablet,delayed 81 mg PO QAM tab 03/22/21 01/30/22 History release (Ecotrin Low Strength) diclofenac sodium 50 mg 50 mg PO BID 03/22/21 01/30/22 History tablet,delayed release Amoxicillin 1 tab PO TID 11/30/21 01/30/22 History tadalafil 5 mg tablet 5 mg PO HS 11/30/21 01/30/22 History amlodipine 5 mg tablet 5 mg PO QPM 01/26/22 01/30/22 History Patient History Medical History (Updated 01/30/22 @ 17:48 by STEWART Jalloh) Bradycardia Chronic, baseline HR in 50s per pt, asymptomatic CAD (coronary artery disease) Nonobstructive moderate left main CAD per 10/26/2021 cath. Medical therapy recommended. Chronic back pain Depression Diverticulitis GERD (gastroesophageal reflux disease) UNDER CONTROL History of COVID-19 PT HAD POSITIVE HOME COVID TEST 11/25/21-COUGH, SEVERE SORE THROAT, FATIGUE, FEVER 104'F- TREATED WITH 10 DAY COURSE AMOXICILLIN FROM PCP-SYMPTOMS IMPROVED Confirmed with PCR test 12/06/21= positive Hyperlipidemia Hypertension Migraine Obesity Urinary frequency Surgical History History of colonoscopy 08/2021 History of dental surgery History of difficult intubation Laparoscopic umbilical hernia repair with mesh (08/07/17): Grade view 2 with glidescope #3, ETT 8.0 at [facility] History of meniscectomy of left knee History of meniscectomy of right knee History of revision of total knee arthroplasty Right TKA revision (11/26/18): SAB at L3-L4 (x1 attempt) + PNB at [facility] History of total right knee replacement Hx of hand surgery LEFT HAND > MULTIPLE; "TENDON RELEASE" Hx of inguinal hernia repair RT/LEFT Hx of LASIK Hx of umbilical hernia repair Family History Aunt Diabetes Father Heart disease Mother Colon cancer Hypertension Other No family history of adverse response to anesthesia Social History Smoking Status: Former smoker Tobacco Type: Cigarettes Age Quit Using Tobacco: 30; Smoking End Date: QUIT 40+ YRS AGO; Second Hand Exposure: Yes ( A CHILD); Do You Dip or Chew Tobacco: No; Hx Alcohol Use: Yes Alcohol type: wine Alcohol Intake Frequency: Monthly or Less Hx Substance Use: No Preferred Language: Upper Sorbian Project Specialist Required: No Beliefs That Will Affect Care: None Current Living Situation: Spouse Other Information That Helps Us Care for You: No Feels Safe at Home: Yes Safety Concerns: Feels Safe At This Time Assistive Devices: Walker Assistive Devices Comment: IMPLANTS FRONT UPPER AND LOWER Review of Systems Review of Systems: REVIEW OF SYSTEMS: Constitutional: No fever, sweats or chills Eyes: No diplopia, no worsening or blurred vision ENT: normal hearing, no trouble swallowing Respiratory: No cough, sputum, dyspnea at rest or on exertion Cardiovascular: No chest pain, tightness or palpitations Abdomen: No pain, nausea, vomiting, diarrhea or constipation- diarrhea resolved Musculoskeletal: (+) chronic back pain Neurologic: No weakness, numbness/tingling, or balance problems Psychiatric: No anxiety or depression Skin: No rash or itch Physical Exam Physical Exam: PHYSICAL EXAM: General: awake, alert, no apparent distress Head: Normocephalic, atraumatic ENT: PERRL, EOMI, no pharyngeal exudate, mucous membranes moist Neuro: AAO x 3, speech clear and appropriate, strength intact bilaterally 5/5, sensation intact and equal all extremities and dermatomes, no pronator drift Chest: equal rise and fall of the chest, no accessory muscle use, no heaves or thrills, Clear to auscultation, on room air, Cardiac: Regular rate and rhythm, skin warm dry, cap refill <3 seconds, peripheral pulses +2 no JVD, no murmur, no edema GI: NABS x 4 quadrants, softly distended, nontender to palpation, no rebound, guarding or tenderness, hypoactive bowelsounds : altman to gravity, no pain, no CVA tenderness, Extremities: Normal inspection, no peripheral edema or erythema, calfs nontender to palpation - MSK- LUANA drain with serous sang drainage Psych: Normal mood and affect Skin: no rash or erythema Results & Data Results & Data ([facility]) Vital Signs (Past 12 Hours) Vital Signs Temp Pulse Pulse Resp BP BP Pulse Ox 01/30/22 16:18 62 16 142/85 H 93 01/30/22 15:55 68 16 139/79 93 01/30/22 15:00 66 17 154/77 H 99 01/30/22 14:50 71 12 154/81 H 88 L 01/30/22 14:40 68 16 167/88 H 98 01/30/22 14:30 72 19 168/90 H 97 01/30/22 14:20 72 16 147/89 H 91 01/30/22 14:10 73 17 169/97 H 94 01/30/22 14:00 78 19 166/97 H 94 01/30/22 13:53 36.3 C L 83 19 172/100 H 92 01/30/22 09:00 36.6 C 52 L 18 167/94 H 98 Laboratory Results Abnormal Labs 01/30/22 08:57 Crossmatch See Detail Medications Administered Home Medications alprazolam 0.5 mg tablet (Xanax) 1 tab PO HS 11/13/18 [History Confirmed 01/30/22] atorvastatin 20 mg tablet 20 mg PO HS 11/13/18 [History Confirmed 01/30/22] escitalopram oxalate 10 mg tablet (Lexapro) 10 mg PO [facility] 11/13/18 [History Confirmed 01/30/22] losartan 25 mg tablet 25 mg PO [facility] 11/13/18 [History Confirmed 01/30/22] magnesium 250 mg tablet 250 mg PO [facility] 11/13/18 [History Confirmed 01/30/22] mometasone 50 mcg/actuation nasal spray (Nasonex) 2 spray INTRANASAL QAM 11/13/18 [History Confirmed 01/30/22] multivitamin 1 tab PO QAM 11/13/18 [History Confirmed 01/30/22] omega 9-tzf-zzz-fish oil 1,000 mg (120 mg-180 mg) capsule (Fish Oil) 2 cap PO QAM 11/13/18 [History Confirmed 01/30/22] pantoprazole 40 mg tablet,delayed release (Protonix) 40 mg PO QAM 11/13/18 [History Confirmed 01/30/22] sumatriptan succinate 100 mg tablet (Imitrex) 1 tab PO DIRECTED PRN 11/13/18 [History Confirmed 01/30/22] topiramate 25 mg tablet 25 mg PO QAM 11/13/18 [History Confirmed 01/30/22] aspirin 81 mg tablet,delayed release (Ecotrin Low Strength) 81 mg PO QAM tab 03/22/21 [History Confirmed 01/30/22] diclofenac sodium 50 mg tablet,delayed release 50 mg PO BID 03/22/21 [History Confirmed 01/30/22] Amoxicillin 1 tab PO TID 11/30/21 [History Confirmed 01/30/22] amlodipine 5 mg tablet 5 mg PO QPM 01/26/22 [History Confirmed 01/30/22] Active Medications Acetaminophen (Acetaminophen 500 Mg Tab) 1,000 mg PO PREOP [facility] Stop: 01/30/22 18:00 Last Admin: 01/30/22 09:24 Dose: 1,000 mg Documented by: Acetaminophen (Acetaminophen 500 Mg Tab) 1,000 mg PO Q8H PRN PRN Reason: MILD Pain Scale 1,2,3 & Pre PT Stop: 03/01/22 15:14 Al Hydrox/Mg Hydrox/Simethicone (Aluminum/Magnesium Susp 30 Ml Udc) 30 ml PO Q6H PRN PRN Reason: Dyspepsia Stop: 03/01/22 15:14 Alprazolam (Alprazolam 0.5 Mg Tablet) 0.5 mg PO HS [facility] Stop: 03/01/22 20:59 Amlodipine Besylate (Amlodipine Besylate 5 Mg Tab) 5 mg PO QPM [facility] Stop: 03/01/22 20:59 Amoxicillin/Clavulanate Potassium (Amoxicillin/Clavulanate 875 Mg Tab) 1 tab PO BIDM [facility] Stop: 02/01/22 20:00 Aspirin (Aspirin 81 Mg Ectab) 81 mg PO QAM [facility] Stop: 03/02/22 08:59 Atorvastatin Calcium (Atorvastatin 20 Mg Tab) 20 mg PO HS [facility] Stop: 03/01/22 20:59 Bisacodyl (Bisacodyl 10 Mg Supp) 10 mg [place] DAILY PRN PRN Reason: Constipation Stop: 03/01/22 15:14 Celecoxib (Celebrex 200 Mg Cap) 200 mg PO PREOP [facility] Stop: 01/30/22 18:00 Last Admin: 01/30/22 09:24 Dose: 200 mg Documented by: Diphenhydramine HCl (Diphenhydramine Capsule 25 Mg Cap) 25 mg PO Q6H PRN PRN Reason: Allergic Rhinitis/Insomnia Stop: 03/01/22 15:14 Escitalopram Oxalate (Escitalopram [facility]ate 10 Mg Tab) [facility] Stop: 03/02/22 08:59 Famotidine (Famotidine 20 Mg Tab) 20 mg PO Q12H PRN PRN Reason: Dyspepsia Stop: 03/01/22 15:14 Fluticasone Propionate (Fluticasone Propionate Na Spr 16 Gm Btl) 2 sprays NA [facility]; Protocol Stop: 03/02/22 08:59 Gabapentin (Gabapentin 300 Mg Cap) 300 mg PO PREOP [facility] Stop: 01/30/22 18:00 Last Admin: 01/30/22 09:24 Dose: 300 mg Documented by: Hydromorphone HCl (Hydromorphone Inj 0.5 Mg/0.5 Ml Syr) 0.5 mg IV Q3H PRN PRN Reason: MODERATE Pain (Scale 4,5,6) & Pre PT Stop: 02/13/22 15:14 Hydromorphone HCl (Hydromorphone Inj 1 Mg/Ml Syringe) 1 mg IV Q3H PRN PRN Reason: SEVERE Pain (Scale 7,8,9,10) Stop: 02/13/22 15:14 Hydroxyzine HCl (Hydroxyzine Hcl 25 Mg Tab) 25 mg PO Q8H PRN PRN Reason: Anxiety Stop: 03/01/22 15:14 Lactated Ringer's (Lr) 1,000 mls @ 15 mls/hr IV .Q24H [facility] Stop: 01/31/22 05:59 Last Infusion: 01/30/22 10:36 Dose: Infused Documented by: Cefazolin Sodium (Ancef 3000mg) 72.5 mls @ 130 mls/hr IV PREOP [facility]; Protocol Stop: 01/30/22 18:00 Last Infusion: 01/30/22 15:37 Dose: Infused Documented by: Cefazolin Sodium (Ancef 2000mg) 2,000 mg in 15 mls @ 3.75 mls/min IV Q8H [facility]; Protocol Stop: 01/31/22 04:03 Sodium Chloride (Nss 1000ml) 1,000 mls @ 150 mls/hr IV .Q6H40M [facility] Stop: 03/01/22 15:14 Last Admin: 01/30/22 15:54 Dose: 150 mls/hr Documented by: Promethazine HCl 12.5 mg/ (Sodium Chloride) 50.5 mls @ 202 mls/hr IV Q6H PRN PRN Reason: Nausea &/or Vomiting Stop: 03/01/22 15:14 Acetaminophen (Ofirmev) 1,000 mg in 100 mls @ 400 mls/hr IV Q8H PRN PRN Reason: Pain Rating 1-3 & Pre PT Stop: 02/02/22 15:14 Dexamethasone 6 mg/ Syringe 1.5 mls @ 1 mls/min IV DAILY [facility] Stop: 02/02/22 09:02 Influenza Virus Vaccine Quadrival (Do Not Administer Flu Vaccine) 1 ea N/A PRN PRN PRN Reason: Notification Stop: 03/01/22 15:14 Lorazepam (Lorazepam 0.5 Mg Tab) 0.5 mg PO Q8H PRN PRN Reason: Sedation/Anxiety Stop: 03/01/22 15:14 Lorazepam (Lorazepam 2 Mg/1 Ml Vial) 0.5 mg IV Q8H PRN PRN Reason: Sedation/Anxiety Stop: 03/01/22 15:14 Losartan Potassium (Losartan Potassium 50 Mg Tab) 50 mg PO QAM [facility] Stop: 03/02/22 08:59 Magnesium Hydroxide (Magnesium Hydroxide Susp 30 Ml Udc) 30 ml PO Q24H PRN PRN Reason: Constipation Stop: 03/01/22 15:14 Magnesium Oxide (Magnesium Oxide 400 Mg Tab) 400 mg PO QAM [facility] Stop: 03/02/22 08:59 Metoclopramide HCl (Metoclopramide Hcl Inj 5 Mg/Ml 2 Ml Vial) 10 mg IV Q6H PRN PRN Reason: Nausea &/or Vomiting Stop: 03/01/22 15:14 Multivitamins (Multivitamin Tab) 1 tab PO QAM [facility] Stop: 03/02/22 08:59 Naloxone HCl (Naloxone Hcl 0.4 Mg/1 Ml Vial/Carp) 0.1 mg IV Q5M PRN PRN Reason: Oversedation/Resp depression Stop: 03/01/22 15:14 Ondansetron HCl (Ondansetron Inj 2 Mg/Ml 2 Ml Vial) 4 mg IV Q6H PRN PRN Reason: Nausea &/or Vomiting Stop: 03/01/22 15:14 Ondansetron HCl (Ondansetron 4 Mg Od Tab) 4 mg PO Q6H PRN PRN Reason: Nausea Stop: 03/01/22 15:14 Oxycodone HCl (Oxycodone Hcl Ir 5 Mg Tab (Immediate Release)) 5 - 10 mg PO Q4H PRN PRN Reason: Pain & Pre PT Stop: 02/13/22 15:14 Last Admin: 01/30/22 15:54 Dose: 10 mg Documented by: Pantoprazole Sodium (Pantoprazole 40 Mg Tab) 40 mg [facility] Stop: 03/02/22 08:59 Pneumococcal Polyvalent Vaccine (Do Not Administer Pneumococcal Vaccine) 1 ea N/A PRN PRN PRN Reason: Notification Stop: 03/01/22 15:14 Polyethylene Glycol (Polyethylene (Miralax) 17 Gm Pack) 17 gm PO Q6 [facility] Stop: 03/02/22 05:59 Senna/Docusate Sodium (Docusate Sodium/Senna 50/8.6mg Tab) 2 tab PO HS [facility] Stop: 03/01/22 20:59 Sodium Biphosphate/Sodium Phosphate (Sod Phosphate/Sod Biphosphate Enema 132 Ml Btl) 132 ml [place] ONE PRN PRN Reason: Constipation Stop: 03/01/22 15:14 Sumatriptan Succinate (Sumatriptan Succinate 100 Mg Tab) 100 mg PO PRN PRN PRN Reason: Migraine Headache Stop: 03/01/22 15:14 Topiramate (Topiramate 25 Mg Tab) 25 mg [facility] Stop: 03/02/22 08:59 Tramadol HCl (Tramadol Hcl 50 Mg Tablet) 50 - 100 mg PO Q4H PRN PRN Reason: Moderate-Severe pain & Pre PT Stop: 03/01/22 15:14 PG Care Time/CCT Total # of Minutes Spent Total Time Spent with Patient: Total time spent is greater than 50% in coordination of care (as documented) at patient's floor/unit and/or counseling patient: Coding Level of Care Code 06466 Office/OBS Consult Lvl 3 Diagnoses Neurogenic claudication due to lumbar spinal stenosis M48.062 Hypertension I10 CAD (coronary artery disease) I25.10 GERD (gastroesophageal reflux disease) K21.9 Hyperlipidemia E78.5 Obesity E66.9 Migraine G43.909 Diverticulitis K57.92 Anxiety F41.9
[2022-01-30] MEDS: AMOXICILLIN/CLAVULANATE 875 MG TAB PO SCH (17:43)
[2022-01-30] MEDS: amLODIPine BESYLATE 5 MG TAB PO SCH (19:53)
[2022-01-30] MEDS: ATORVASTATIN 20 MG TAB PO SCH (19:53)
[2022-01-30] MEDS: DOCUSATE SODIUM/SENNA 50/8.6MG TAB PO SCH (19:53)
[2022-01-30] MEDS: ceFAZolin 2000MG 2,000 MG/15 ML SYR IV SCH (19:59)
[2022-01-30] MEDS ORDERED: ALPRAZolam 0.5 MG TABLET PO SCH (21:00)
[2022-01-30] MEDS: ACETAMINOPHEN 500 MG TAB PO PRN (23:59)
[2022-01-31] MEDS: ceFAZolin 2000MG 2,000 MG/15 ML SYR IV SCH (03:55)
[2022-01-31] MEDS: POLYETHYLENE (MIRALAX) 17 GM PACK PO SCH ×4 (05:55→23:47)
[2022-01-31] MEDS ORDERED: AMOXICILLIN/CLAVULANATE 875 MG TAB PO SCH ×2 (08:00→18:00)
--- NOTE | 2022-01-31 08:09 | Hospitalist Progress Note ---
Date of Service January 31, 2022 Assessment & Plan (1) Neurogenic claudication due to lumbar spinal stenosis: Plan: POD#1 s/p #1 lumbar decompression with bilateral medial facetectomies and foraminotomies L2-L3, L3-L4, L4-5 and L5-S1. #2 posterior spinal fusion L3-S1. #3 placement posterior segmental instrumentation L3-S1. #4 interbody fusion L3- L4, L4-5 and L5-S1. #5 placement of Spira titanium cage 13 x 26 at L3-L4, 14 x 26 at L4-5 and 15 x 26 at L5-S1.#6 placement locally harvested morselized autograft in the posterior gutters. #7 placement of I factor combined with the toxin interbody space and posterior lateral gutters. with Dr Sun 01/30 Pre-op h/h 13.1/36.4-- repeat hgb 10.9. acute blood loss anemia from surgery as well as some dilution from IVF. -EBL 650cc from surgery and 480cc so far in LUANA output Given ancef abx but placed on Augmentin to complete course for recent bout diverticulitis, apparently only 1 day left of treatment to complete course but will continue for 24 hours as patient said he had 4 tablets left to complete treatment at home but had been taking TID (changed for tomorrow 500mg TID and will stop after tomorrow dose) Bowel regimen -- miralax x 2 this morning, encouraged continued ambulation. also continue Colace, suppository if needed. He admits to taking miralax fairly regular at home to ensure bowels moving Pain management/PT/OT/DVT prophylaxis per primary service (utilizing ASA, SCDs) Of note, IT band tightness and possible trochanteric bursitis, not resolved with surgery and likely separate issue. Patient stated Dr Sun rec outpatient f/u Dr Huertas (seen for back injections 2018) --> had been using PO/topical Voltaren gel at home for discomfort and reported this helped.Ordered topical Voltaren for now for relief (2) Diverticulitis: Plan: Reported during evaluation - Seen at [place] [phone]- no answer at patient records for review/clarification - Script started 22March- for 14 days- Amox/clav 875- BID- defer to day team to d/c date --> Asymptomatic from such. No abdominal pain reported and working on bowel regimen --> Augmentin BID at higher dose ordered for today but he has been taking 500mg TID at home and changed for tomorrow and will stop after tomorrows doing (3) Hypertension: Plan: BP 129/67 Continues on amlodipine Losartan recently increased to 50mg at last office visit --> this was changed in system but holding for today (Bps lower and Cr slightly elevated compared to prior) and plan to resume in AM (4) CAD (coronary artery disease): Plan: Cath Sep 2021, non-obstructing CAD to LAD, med management. Continue ASA, atorvastatin 20mg ARB on hold (5) GERD (gastroesophageal reflux disease): Plan: Continue oral PPI while on Decadron - stopped H2 (6) Hyperlipidemia: Plan: Atorvastatin 20mg PO Qhs (7) Obesity: Plan: Continue with weight loss efforts to decrease rn long term care CV morbidities (8) Migraine: Plan: Hx of Continue Imitrex Continue Topamax No headache reported (9) Anxiety: Plan: Continue home Xanax- 0.5mg nightly --> increased to 1mg as had been increased outpatient and to assist with sleep as he hadn't gotten much Admission and Anticipated Discharge Date Admission Date: January 30, 2022 Supervising Physician Co-Signing Physician Notes PA Supervision Note: I did not personally see or examine the patient today, but I verified all august points of LETICIA Tong's assessment and plan with the following exceptions/additions: None Subjective Patient evaluated this afternoon. States was up last evening and walked to door/riley and back and was in a bit of pain. Pain a little better today. Sticking with IV tylneol to prevent constipation. Eating/drinking no issue and starting to pass gas. Takes miralax daily to help with BMs. Occ QOD dosing but moves bowels fairly regularly. Up with therapy and thinks he did pretty well, will continue to eval. He states pain to lower legs improved, strength equal. He thought the lateral aspect of legs would be resolved but states that is still present. Told by Dr Sun about possible tightness of sheath/muscle and may benefit from injection. He has never had back surgery , this is first one. He had been following outpatient , chronic pain. Injections in [id number] and most recently [id number] Huertas. He notes he wouold like to know timing for this injection if can happen sooner than later or if needs to recover. Will discuss with Dr Sun but suspect would have him wait a little. Asked if ever tried voltaren -- he notes he had the PO and topical at home. Topical was effective when applied before bed (reported didn't get great sleep last night) and we will order this. He stopped taking the oral a little while ago and discussed lets try the oral first. He notes BP best its probably been in a while. Discussed holding his lisinopril until tomorrow. Diverticulitis at [place] on Augmentin and stated he had about 4 pills left. No abdominal pain at this time. No fever, chills, chest pain, shortness of breath, abdominal pain, nausea, vomiting at this time. Also does have R rotator cuff injury that will require repair in the future but that he isn't having issues with the walker as he only has issues with extreme external rotation and extension. Questions/concerns addressed at this time. Review of Systems Review of Systems: All systems reviewed & are unremarkable except as noted in HPI & below Physical Exam Physical Exam: General: WN, WD male sitting upright in chair looking out window, no acute distress, lunch just delivered HEENT: head normocephalic, atraumatic, mmm, trachea midline without deviation Resp: CTAB, no w/c/r, on room air CV: RRR (rate 64bpm), no m/r/g, no edema, pulses palpable bilaterally GI: +BS, distended, non-tender, no guarding/rigidity : Gongora with clear yellow urine MSK/Neuro: dressing to lumbar spine c/d/i, minimal incisional tenderness, LUANA with serosanguineous output (~20cc), strength 5/5 bl LE, does have some tenderness to palpation trochanteric bursa bilaterally (no erythema/opening/eccymosis), NVI, pulses palpable bilaterally Psych:AOX3, pleasant and cooperative Results & Data Results & Data ([facility]) Vital Signs (Past 12 Hours) Vital Signs Temp Pulse Resp BP BP Pulse Ox 01/31/22 07:44 36.5 C 69 16 113/61 97 01/31/22 04:00 36.7 C 72 20 112/65 96 01/30/22 22:57 36.4 C L 71 20 109/68 92 Laboratory Results 01/31/22 01/31/22 01/30/22 Range/Units 06:59 06:59 18:34 WBC 19.10 H (4.8-10.8) K/uL RBC 3.52 L (4.7-6.1) M/uL Hgb 10.9 L (14.0-18.0) g/dL Hct 31.2 L (42-52) % MCV 88.6 (80-100) fL MCH 31.0 (25-34) pg MCHC 34.9 (32-36) g/dL RDW Std Deviation 46.3 (36.4-46.3) fL RDW Coeff of Joi 14.2 (11.5-14.5) % Plt Count 196 (130-400) K/uL MPV 10.1 (7.4-10.4) fL Immature Gran % (Auto) 0.2 % Neut % (Auto) 90.1 % Lymph % (Auto) 4.7 % Grainger % (Auto) 5.0 % Eos % (Auto) 0.0 % Baso % (Auto) 0.0 % Neut # (Auto) 17.21 H (1.4-6.5) K/uL Lymph # (Auto) 0.90 L (1.2-3.4) K/uL Grainger # (Auto) 0.95 H (0.11-0.59) K/uL Eos # (Auto) 0.00 (0-0.5) K/uL Baso # (Auto) 0.00 (0-0.2) K/uL Immature Gran # (Auto) 0.04 H (0.00-0.02) K/uL Sodium 136 (136-145) mmol/L Potassium 3.8 (3.5-5.1) mmol/L Chloride 106 (98-107) mmol/L Carbon Dioxide 24 (21-32) mmol/L Anion Gap 6 (3-11) BUN 22 (6-23) mg/dl Creatinine 1.22 (0.6-1.4) mg/dl Est Cr Clr Drug Dosing 75.1 ml/min Est GFR ( Amer) 68.7 ml/min Est GFR (Non-Af Amer) 59.3 ml/min BUN/Creatinine Ratio 18.0 (10-20) Glucose 132 H (70-99(Fasting)) mg/dl Calcium 8.1 L (8.5-10.1) mg/dl Hepatitis C Ab (EIA) Pending Hep C Ab Signal/Cutoff Pending Crossmatch 01/30/22 Range/Units 08:57 WBC (4.8-10.8) K/uL RBC (4.7-6.1) M/uL Hgb (14.0-18.0) g/dL Hct (42-52) % MCV (80-100) fL MCH (25-34) pg MCHC (32-36) g/dL RDW Std Deviation (36.4-46.3) fL RDW Coeff of Joi (11.5-14.5) % Plt Count (130-400) K/uL MPV (7.4-10.4) fL Immature Gran % (Auto) % Neut % (Auto) % Lymph % (Auto) % Grainger % (Auto) % Eos % (Auto) % Baso % (Auto) % Neut # (Auto) (1.4-6.5) K/uL Lymph # (Auto) (1.2-3.4) K/uL Grainger # (Auto) (0.11-0.59) K/uL Eos # (Auto) (0-0.5) K/uL Baso # (Auto) (0-0.2) K/uL Immature Gran # (Auto) (0.00-0.02) K/uL Sodium (136-145) mmol/L Potassium (3.5-5.1) mmol/L Chloride (98-107) mmol/L Carbon Dioxide (21-32) mmol/L Anion Gap (3-11) BUN (6-23) mg/dl Creatinine (0.6-1.4) mg/dl Est Cr Clr Drug Dosing ml/min Est GFR ( Amer) ml/min Est GFR (Non-Af Amer) ml/min BUN/Creatinine Ratio (10-20) Glucose (70-99(Fasting)) mg/dl Calcium (8.5-10.1) mg/dl Hepatitis C Ab (EIA) Hep C Ab Signal/Cutoff Crossmatch See Detail PG Care Time/CCT Total # of Minutes Spent Total Time Spent with Patient: Total time spent is greater than 50% in coordination of care (as documented) at patient's floor/unit and/or counseling patient: Coding Level of Care Code 79009 Subseq Hosp Care Lvl 3 Diagnoses Neurogenic claudication due to lumbar spinal stenosis M48.062 Diverticulitis K57.92 Hypertension I10 CAD (coronary artery disease) I25.10 GERD (gastroesophageal reflux disease) K21.9 Hyperlipidemia E78.5 Obesity E66.9 Migraine G43.909 Anxiety F41.9
[2022-01-31 08:12] LABS: Hematocrit (blood only) 31.2 % (42-52); Hemoglobin 10.9 g/dL (14.0-18.0); Immature Granulocytes # (auto) 0.04 K/uL (0.00-0.02); Immature Granulocytes % (auto) 0.2 %; Lymphocytes % (auto) 4.7 %; Mean Corpuscular Hgb Conc 34.9 g/dL (32-36); Mean Corpuscular Volume 88.6 fL (80-100); Mean Platelet Volume 10.1 fL (7.4-10.4); Monocytes # (auto) 0.95 K/uL (0.11-0.59); Neutrophils # (auto) 17.21 K/uL (1.4-6.5); Neutrophils % (auto) 90.1 %; Platelet Count 196 K/uL (130-400); RDW Coefficient of Variation 14.2 % (11.5-14.5); RDW Standard Deviation 46.3 fL (36.4-46.3); Red Blood Count 3.52 M/uL (4.7-6.1)
[2022-01-31 08:30] LABS: Calcium 8.1 mg/dl (8.5-10.1); Creatinine Clr Calc Pharmacy 75.1 ml/min; Est GFR (African American) 68.7 ml/min; Est GFR (Non-African American) 59.3 ml/min; Potassium 3.8 mmol/L (3.5-5.1)
[2022-01-31] MEDS: FLUTICASONE PROPIONATE NA SPR 16 GM BTL SCH (08:46)
[2022-01-31] MEDS: ASPIRIN 81 MG ECTAB PO SCH (08:47)
[2022-01-31] MEDS: dexAMETHasone 6 MG in SYRINGE 0 ML IV SCH (08:47)
[2022-01-31] MEDS: AMOXICILLIN/CLAVULANATE 875 MG TAB PO SCH (08:47)
[2022-01-31] MEDS: ESCITALOPRAM OXALATE 10 MG TAB PO SCH (08:48)
[2022-01-31] MEDS: MAGNESIUM OXIDE 400 MG TAB PO SCH (08:48)
[2022-01-31] MEDS: MULTIVITAMIN TAB PO SCH (08:49)
[2022-01-31] MEDS: PANTOprazole 40 MG TAB PO SCH (08:49)
[2022-01-31] MEDS: TOPIRAMATE 25 MG TAB PO SCH (08:49)
[2022-01-31] MEDS ORDERED: LOSARTAN POTASSIUM 50 MG TAB PO SCH (09:00)
[2022-01-31] MEDS ORDERED: LOSARTAN POTASSIUM 25 MG TAB PO SCH (09:00)
[2022-01-31] MEDS: ACETAMINOPHEN 500 MG TAB PO PRN (12:05)
--- NOTE | 2022-01-31 13:48 | Orthopedic Progress Note ---
Date of Service January 31, 2022 Assessment & Plan (1) Neurogenic claudication due to lumbar spinal stenosis: Plan: This time we will continue physical therapy monitor his LUANA output hopefully discharge home later after this week. Admission and Anticipated Discharge Date Admission Date: January 30, 2022 Subjective Patient's pain is controlled. Leg symptoms improved. Physical Exam Physical Exam: Patient is in the chair at the bedside. Discussed pain to testing. Does have some trochanteric bursitis. Results & Data ([facility]) Vital Signs (Past 12 Hours) Vital Signs Temp Pulse Resp BP BP Pulse Ox 01/31/22 11:29 36.5 C 75 16 129/67 92 01/31/22 07:44 36.5 C 69 16 113/61 97 01/31/22 04:00 36.7 C 72 20 112/65 96
[2022-01-31] MEDS: DICLOFENAC SOD 1% GEL 100 GM TUBE EXT SCH ×3 (14:25→20:51)
[2022-01-31] MEDS: oxyCODONE HCL IR 5 MG TAB (IMMEDIATE RELEASE) PO PRN ×2 (17:23→21:50)
[2022-01-31] MEDS: ALPRAZolam 0.5 MG TABLET PO SCH (20:50)
[2022-01-31] MEDS: ATORVASTATIN 20 MG TAB PO SCH (20:50)
[2022-01-31] MEDS: DOCUSATE SODIUM/SENNA 50/8.6MG TAB PO SCH (20:51)
[2022-01-31] MEDS: amLODIPine BESYLATE 5 MG TAB PO SCH (20:51)
[2022-02-01] MEDS: oxyCODONE HCL IR 5 MG TAB (IMMEDIATE RELEASE) PO PRN ×4 (03:51→18:10)
[2022-02-01] MEDS: POLYETHYLENE (MIRALAX) 17 GM PACK PO SCH (05:40)
[2022-02-01 06:36] LABS: Hematocrit (blood only) 30.1 % (42-52); Hemoglobin 10.5 g/dL (14.0-18.0); Mean Corpuscular Hemoglobin 31.3 pg (25-34); Mean Corpuscular Hgb Conc 34.9 g/dL (32-36); Mean Corpuscular Volume 89.9 fL (80-100); Mean Platelet Volume 10.3 fL (7.4-10.4); Platelet Count 194 K/uL (130-400); RDW Coefficient of Variation 14.3 % (11.5-14.5); RDW Standard Deviation 47.3 fL (36.4-46.3); Red Blood Count 3.35 M/uL (4.7-6.1); White Blood Count 17.76 K/uL (4.8-10.8)
[2022-02-01 06:58] LABS: BUN Creatinine Ratio 23.6 (10-20); Calcium 8.3 mg/dl (8.5-10.1); Creatinine Clr Calc Pharmacy 72.1 ml/min; Est GFR (African American) 65.4 ml/min; Est GFR (Non-African American) 56.5 ml/min
--- NOTE | 2022-02-01 07:59 | Hospitalist Progress Note ---
Date of Service February 01, 2022 Assessment & Plan (1) Neurogenic claudication due to lumbar spinal stenosis: Plan: POD#1 s/p #1 lumbar decompression with bilateral medial facetectomies and foraminotomies L2-L3, L3-L4, L4-5 and L5-S1. #2 posterior spinal fusion L3-S1. #3 placement posterior segmental instrumentation L3-S1. #4 interbody fusion L3- L4, L4-5 and L5-S1. #5 placement of Spira titanium cage 13 x 26 at L3-L4, 14 x 26 at L4-5 and 15 x 26 at L5-S1.#6 placement locally harvested morselized autograft in the posterior gutters. #7 placement of I factor combined with the toxin interbody space and posterior lateral gutters. with Dr Sun 01/30 Pre-op h/h 13.1/36.4 --Repeat hgb 10.9-->10.5 and stable --Acute blood loss anemia from surgery as well as some dilution from IVF/LUANA output. EBL from surgery 650cc, 420cc on 01/31, 195cc thus far recorded WBC elevation 2nd to decadron. Afebrile. * Given ancef abx but placed on Augmentin to complete course for recent bout diverticulitis, apparently only 1 day left of treatment to complete course but will continue for 24 hours as patient said he had 4 tablets left to complete treatment at home but had been taking TID (changed for tomorrow 500mg TID and will stop after tomorrow dose) Bowel regimen -- takes miralax fairly regular at home. Increased dosing 01/31, 2 BM reported Pain management/PT/OT/DVT prophylaxis per primary service (utilizing ASA, SCDs) Of note, IT band tightness and possible trochanteric bursitis, not resolved with surgery and likely separate issue. Patient stated Dr Sun rec outpatient f/u Dr Huertas (seen for back injections 2018) --> had been using PO/topical Voltaren gel at home for discomfort and reported this helped.Ordered topical Voltaren for now for relief--> EFFECTIVE, continue --> Per Dr Sun, possible injection in next 2 weeks (2) Diverticulitis: Plan: Reported during evaluation - Seen at [place] [phone]- no answer at patient records for review/clarification - Script started 22March- for 14 days- Amox/clav 875- BID- defer to day team to d/c date --> Asymptomatic from such. No abdominal pain reported and working on bowel regimen --> Augmentin BID at higher dose ordered for 01/31, taking 500mg TID at home and changed for today. can stop after todays doses (3) Hypertension: Plan: Continued on amlodipine 5mg QPM BP 108/67 Continue to hold losartan, recently increased to 50mg at last office visit. Plan to resume in AM Cr stable1.27 -baseline appears to be 1.1-1.2s at baseline (4) CAD (coronary artery disease): Plan: Cath Sep 2021, non-obstructing CAD to LAD, med management. Continue ASA, atorvastatin 20mg ARB on hold, resumed for AM (5) GERD (gastroesophageal reflux disease): Plan: Continue oral PPI while on Decadron (6) Hyperlipidemia: Plan: Atorvastatin 20mg PO Qhs (7) Obesity: Plan: Continue with weight loss efforts to decrease half-way CV morbidities (8) Migraine: Plan: Hx of Continue Imitrex Continue Topamax No headache reported (9) Anxiety: Plan: Continue home Xanax- 0.5mg nightly --> increased to 1mg as had been increased outpatient and to assist with sleep as he hadn't gotten much Improved sleep last evening Plan: Hospitalist service will sign off at this time and chart check in AM. Please call with any questions/concerns Admission and Anticipated Discharge Date Admission Date: January 30, 2022 Supervising Physician Co-Signing Physician Notes PA Supervision Note: I did not personally see or examine the patient today, but I verified all august points of LETICIA Tong's assessment and plan with the following exceptions/additions: None Subjective Patient evaluated this morning. Doing well. Pain controlled. No incisional pain. Volaren gel effective for bilateral lateral leg discomfort. Discussed troch injections per Dr Sun possibly in next two weeks and can discuss when he comes around today to eval patient. Observed walking riley with walker with PT. Did really well. BM x 3, last one slightly loose. Can back off on miralax for now. ABx to complete today. LUANA drain output decreased. Patient denies chest pain, shortness of breath, abd pain, nausea, vomiting, lightheaded/dizziness at this time. Questions/concerns addressed. Possible d/c in next 24-48 hours and likely will just chart check in AM and if BP stable can resume his LUCIAN. Review of Systems Review of Systems: All systems reviewed & are unremarkable except as noted in HPI & below Physical Exam Physical Exam: General: WN, WD male sitting in bed, just got back from working with PT, NAD HEENT: head normocephalic, atraumatic, mmm, trachea midline without deviation Resp: CTAB, no w/c/r, on room air CV: RRR (rate 62bpm), no m/r/g, no edema, pulses palpable bilaterally GI: +BS, distended, non-tender, no guarding/rigidity : Gongora with clear yellow urine MSK/Neuro: dressing to lumbar spine c/d/i, minimal incisional tenderness, LUANA with serosanguineous output (~15cc), strength 5/5 bl LE, does have some tenderness to palpation trochanteric bursa bilaterally (no erythema/opening/ecchymosis), NVI, pulses palpable bilaterally Psych:AOX3, pleasant and cooperative Results & Data Results & Data ([facility]) Vital Signs (Past 12 Hours) Vital Signs Temp Pulse Resp BP BP Pulse Ox 02/01/22 07:21 36.6 C 62 16 108/67 93 01/31/22 22:44 36.6 C 61 22 127/68 94 01/31/22 20:50 64 125/67 Laboratory Results 02/01/22 02/01/22 01/31/22 Range/Units 05:51 05:51 06:59 WBC 17.76 H (4.8-10.8) K/uL RBC 3.35 L (4.7-6.1) M/uL Hgb 10.5 L (14.0-18.0) g/dL Hct 30.1 L (42-52) % MCV 89.9 (80-100) fL MCH 31.3 (25-34) pg MCHC 34.9 (32-36) g/dL RDW Std Deviation 47.3 H (36.4-46.3) fL RDW Coeff of Joi 14.3 (11.5-14.5) % Plt Count 194 (130-400) K/uL MPV 10.3 (7.4-10.4) fL Immature Gran % (Auto) % Neut % (Auto) % Lymph % (Auto) % [place] % (Auto) % Eos % (Auto) % Baso % (Auto) % Neut # (Auto) (1.4-6.5) K/uL Lymph # (Auto) (1.2-3.4) K/uL [place] # (Auto) (0.11-0.59) K/uL Eos # (Auto) (0-0.5) K/uL Baso # (Auto) (0-0.2) K/uL Immature Gran # (Auto) (0.00-0.02) K/uL Sodium 137 136 (136-145) mmol/L Potassium 4.0 3.8 (3.5-5.1) mmol/L Chloride 105 106 (98-107) mmol/L Carbon Dioxide 25 24 (21-32) mmol/L Anion Gap 7 6 (3-11) BUN 30 H 22 (6-23) mg/dl Creatinine 1.27 1.22 (0.6-1.4) mg/dl Est Cr Clr Drug Dosing 72.1 75.1 ml/min Est GFR ( Amer) 65.4 68.7 ml/min Est GFR (Non-Af Amer) 56.5 59.3 ml/min BUN/Creatinine Ratio 23.6 H 18.0 (10-20) Glucose 115 H 132 H (70-99(Fasting)) mg/dl Calcium 8.3 L 8.1 L (8.5-10.1) mg/dl Hepatitis C Ab (EIA) (NON-REACTIVE) Hep C Ab Signal/Cutoff (<1.00) Crossmatch 01/31/22 01/30/22 01/30/22 Range/Units 06:59 18:34 08:57 WBC 19.10 H (4.8-10.8) K/uL RBC 3.52 L (4.7-6.1) M/uL Hgb 10.9 L (14.0-18.0) g/dL Hct 31.2 L (42-52) % MCV 88.6 (80-100) fL MCH 31.0 (25-34) pg MCHC 34.9 (32-36) g/dL RDW Std Deviation 46.3 (36.4-46.3) fL RDW Coeff of Joi 14.2 (11.5-14.5) % Plt Count 196 (130-400) K/uL MPV 10.1 (7.4-10.4) fL Immature Gran % (Auto) 0.2 % Neut % (Auto) 90.1 % Lymph % (Auto) 4.7 % [place] % (Auto) 5.0 % Eos % (Auto) 0.0 % Baso % (Auto) 0.0 % Neut # (Auto) 17.21 H (1.4-6.5) K/uL Lymph # (Auto) 0.90 L (1.2-3.4) K/uL [place] # (Auto) 0.95 H (0.11-0.59) K/uL Eos # (Auto) 0.00 (0-0.5) K/uL Baso # (Auto) 0.00 (0-0.2) K/uL Immature Gran # (Auto) 0.04 H (0.00-0.02) K/uL Sodium (136-145) mmol/L Potassium (3.5-5.1) mmol/L Chloride (98-107) mmol/L Carbon Dioxide (21-32) mmol/L Anion Gap (3-11) BUN (6-23) mg/dl Creatinine (0.6-1.4) mg/dl Est Cr Clr Drug Dosing ml/min Est GFR ( Amer) ml/min Est GFR (Non-Af Amer) ml/min BUN/Creatinine Ratio (10-20) Glucose (70-99(Fasting)) mg/dl Calcium (8.5-10.1) mg/dl Hepatitis C Ab (EIA) NON-REACTIVE (NON-REACTIVE) Hep C Ab Signal/Cutoff 0.01 (<1.00) Crossmatch See Detail PG Care Time/CCT Total # of Minutes Spent Total Time Spent with Patient: Total time spent is greater than 50% in coordination of care (as documented) at patient's floor/unit and/or counseling patient: Coding Level of Care Code 84665 Subseq Hosp Care Lvl 2 Diagnoses Neurogenic claudication due to lumbar spinal stenosis M48.062 Diverticulitis K57.92 Hypertension I10 CAD (coronary artery disease) I25.10 GERD (gastroesophageal reflux disease) K21.9 Hyperlipidemia E78.5 Obesity E66.9 Migraine G43.909 Anxiety F41.9
[2022-02-01] MEDS: dexAMETHasone 6 MG in SYRINGE 0 ML IV SCH (08:43)
[2022-02-01] MEDS: FLUTICASONE PROPIONATE NA SPR 16 GM BTL SCH (08:43)
[2022-02-01] MEDS: MULTIVITAMIN TAB PO SCH (08:48)
[2022-02-01] MEDS: MAGNESIUM OXIDE 400 MG TAB PO SCH (08:48)
[2022-02-01] MEDS: DICLOFENAC SOD 1% GEL 100 GM TUBE EXT SCH ×4 (08:48→20:46)
[2022-02-01] MEDS: TOPIRAMATE 25 MG TAB PO SCH (08:48)
[2022-02-01] MEDS: PANTOprazole 40 MG TAB PO SCH (08:48)
[2022-02-01] MEDS: ESCITALOPRAM OXALATE 10 MG TAB PO SCH (08:48)
[2022-02-01] MEDS: ASPIRIN 81 MG ECTAB PO SCH (08:48)
[2022-02-01] MEDS: AMOXICILLIN/CLAVULANATE 500 MG TAB PO SCH ×3 (08:48→17:01)
--- NOTE | 2022-02-01 14:49 | Orthopedic Progress Note ---
Date of Service February 01, 2022 Assessment & Plan (1) Neurogenic claudication due to lumbar spinal stenosis: Plan: This time we will continue physical therapy monitor his LUANA operatively discharge home tomorrow. Admission and Anticipated Discharge Date Admission Date: January 30, 2022 Subjective Back pain controlled leg symptoms improved Physical Exam Physical Exam: Patient is constricted testing. Appears comfortable. Results & Data ([facility]) Vital Signs (Past 12 Hours) Vital Signs Temp Pulse Resp BP Pulse Ox 02/01/22 07:21 36.6 C 62 16 108/67 93
[2022-02-01] MEDS: amLODIPine BESYLATE 5 MG TAB PO SCH (20:45)
[2022-02-01] MEDS: ALPRAZolam 0.5 MG TABLET PO SCH (20:45)
[2022-02-01] MEDS: ATORVASTATIN 20 MG TAB PO SCH (20:46)
[2022-02-01] MEDS: DOCUSATE SODIUM/SENNA 50/8.6MG TAB PO SCH (20:46)
[2022-02-02] MEDS: oxyCODONE HCL IR 5 MG TAB (IMMEDIATE RELEASE) PO PRN ×3 (01:05→12:44)
[2022-02-02] MEDS: ASPIRIN 81 MG ECTAB PO SCH (08:57)
[2022-02-02] MEDS: DICLOFENAC SOD 1% GEL 100 GM TUBE EXT SCH ×2 (08:58→12:44)
[2022-02-02] MEDS: FLUTICASONE PROPIONATE NA SPR 16 GM BTL SCH (08:58)
[2022-02-02] MEDS: ESCITALOPRAM OXALATE 10 MG TAB PO SCH (08:58)
[2022-02-02] MEDS: MULTIVITAMIN TAB PO SCH (08:59)
[2022-02-02] MEDS: MAGNESIUM OXIDE 400 MG TAB PO SCH (08:59)
[2022-02-02] MEDS: PANTOprazole 40 MG TAB PO SCH (08:59)
[2022-02-02] MEDS: TOPIRAMATE 25 MG TAB PO SCH (09:00)
[2022-02-02] MEDS: dexAMETHasone 6 MG in SYRINGE 0 ML IV SCH (09:01)
--- NOTE | 2022-02-02 13:24 | Discharge Summary ---
Date of Service February 02, 2022 Principal Diagnosis Lumbar spinal stenosis with neurogenic claudication Discharge Data Allergies Allergy/AdvReac Type Severity Reaction Status Date / Time No Known Allergies Allergy Verified 01/30/22 08:53 Consultations 01/30/22 15:15 Consult Hospitalist Routine Procedures Performed Operation Date: 01/30/22 10:00 Actual Procedures p L3-S1 Decompression and Fusion, Interbody Cage L3-S1 with ifactor bone graft and Vitoss bone graft; Spinal Cord Monitoring(Bilateral) - Jerzy Sun DO Ordered Studies 01/30/22 10:00 [place] lumbar spine 2-3V Routine Hospital Course (1) Neurogenic claudication due to lumbar spinal stenosis: Patient underwent multilevel lumbar decompression fusion tolerated this w ell was taken to the orthopedic floor postoperatively. Postop day 1 he was up and ambulating progressed to postop day #2 postop day #3 LUANA drainage decreased probably. Excellent strength testing. Pain well controlled. Subsequently discharged home. Discharge orders and instructions found in chart for further view. Total Time Total Time Spent Total Time Spent (In Minutes): 20 minutes Discharge Plan Discharge Items Patient Disposition: Home - Self-Care Reason For Visit: POSTOP Discharge Diagnosis: Lumbar spinal stenosis with neurogenic claudication Activity: Per Instructions section Non-emergency contact: Primary Care Provider Call non-emergency contact if: you have any medication questions Follow-up/Referrals: Marcelo Lowry MD [Primary Care Provider] - 02/06/22 1:30 pm Diet: Regular Addtl Attending Provider Instructions: ACTIVITY RECOMMENDATIONS: SELF CARE INSTRUCTIONS AFTER THORACIC/LUMBAR FUSIONS 1. You may walk to your tolerance. It is good exercise for your legs and back. Expect some back and intermittent leg aches and pains. 2. You may perform "counter-top" level activities (make a sandwich, cristiane with a project, etc.). 3. No bending or lifting of more than 10 pounds or back twisting of any nature (roll like a log when turning in bed). 4. You may ride in a car for 20-30 minutes at a time. No driving until after your first visit with your doctor. 5. Frequent changes of position and restricting sitting to 30 minutes at a time will help limit the amount of back spasms and stiffness you may experience. 6. You may discontinue the use of ambulatory aids (cane, crutches, etc.) once your strength and confidence allow. 7. You may electric track switch maintainer the shower and let water strike your incision when you arrive home at least once daily. Do not take a tub bath, sit in a hot tub or go into a swimming pool until after your first recheck in the office. SPECIAL CARE INSTRUCTIONS: VERY IMPORTANT TO READ AND REVIEW A. Your surgical incision has been closed with a cosmetic suture under the skin that will dissolve in about 6 weeks. In 14 days, you can use a pair of clean scissors and cut the suture that is left outside of the skin at the ends of your incision. 1. The small skin tapes can be removed 7 days after surgery if they have not fallen off by that point. 2. You may keep the wound open to air as much as possible to promote healing after post-op day number 5 unless told otherwise by your doctor. 3. If you think the wound looks like it is becoming infected (redness or worsening drainage) and/or you are experiencing fever, chill or worsening back pain and muscle spasms, contact the office so that we may evaluate you as soon as possible. B. Complications are uncommon, but please contact us if you have any signs or symptoms of: 1. wound infection (fever higher than 102.5 degrees F, redness, separation of wound, drainage, or increasing pain from the incision) 2. blood clots in legs (pain, swelling, redness and warmth in legs) 3. urinary tract infection (fever higher than 102.5 degrees F, burning upon urination or increased frequency of urination) 4. nerve problems (inability to walk on your toes or heels, numbness, loss of bowel or bladder control) 5. any other symptoms that concern you C. Please call the office at if you have any concerns or questions about your operation or recovery. D. No smoking! Smoking drastically decreases the chance of a solid fusion. E. Do not take any anti-inflammatory medications (Indocin, Advil, Motrin, Aspirin, Naprosyn, etc.) as these may inhibit the chance of a solid fusion. Tylenol is okay to take for pain. MANAGING PAIN AFTER SPINAL SURGERY 1. Narcotic medication is intended for short-term use and will be provided for surgical pain. Surgical pain usually lasts for a period of 4-6 weeks. Narcotic medication includes Percocet, Vicodin, Darvocet, Tylenol #3 or Lortab. 2. Longer-term pain is more appropriately treated with non-narcotic medication such as Tylenol ES. 3. Muscle spasm is not appropriately treated with narcotics. Muscle relaxers such as Soma, Flexeril or Skelaxin can be used along with Tylenol ES. 4. Remember that we all live with some "aches and pains". This is not unusual or uncommon after an injury or as we get older. a. Back pain is expected and may include muscle spasms for 4 to 6 weeks after surgery. The pain should gradually improve. If the pain worsens for no apparent reason, please contact the office. b. Intermittent leg pain may also be experienced and should not be concerned about unless it worsens for no apparent reason. If so, please contact the office. 5. We will provide appropriate medication within the normal guidelines of their prescribed use. We will also be very cautious and aware of potential abuse and extended duration of patients' medication needs. a. Pain medications are for your comfort and to assist with sleep and rest so that the tissue can heal. They are not provided in order to return to normal activity and should not be used through the day. To do so or worsening pain at night can result from ongoing tissue damage and development of tolerance to the prescribed medicine. 6. Please allow 2-3 days to process refills. Prescriptions will not be mailed but must be picked up at the office. FOLLOW UP VISIT: Keep your scheduled follow-up appointment. Any questions, please call the office at . Pending Studies at Discharge: No Stand-Alone Forms: [facility], Opioid Pain Management, Smoking Cessation Medications and DC Order Prescriptions: New tramadol 50 mg tablet 50 mg PO Q6H PRN (Reason: pain, moderate) Qty: 30 RF: 0 oxycodone 5 mg tablet 5 mg PO Q6H PRN (Reason: pain, severe) Qty: 30 RF: 0 Continued aspirin [Ecotrin Low Strength] 81 mg tablet,delayed release (DR/EC) 81 mg PO QAM RF: 0 diclofenac sodium 50 mg tablet,delayed release (DR/EC) 50 mg PO BID RF: 0 multivitamin Tablet 1 tab PO QAM RF: 0 sumatriptan succinate [Imitrex] 100 mg Tablet 1 tab PO DIRECTED PRN (Reason: Migraine Headache) RF: 0 topiramate 25 mg Tablet 25 mg PO QAM RF: 0 alprazolam [Xanax] 0.5 mg Tablet 1 tab PO HS RF: 0 pantoprazole [Protonix] 40 mg Tablet,Delayed Release (Dr/Ec) 40 mg PO QAM RF: 0 losartan 25 mg Tablet 25 mg PO QAM RF: 0 mometasone [Nasonex] 50 mcg/actuation Norphlet,Non-Aerosol 2 spray INTRANASAL QAM RF: 0 magnesium 250 mg Tablet 250 mg PO QAM RF: 0 escitalopram oxalate [Lexapro] 10 mg Tablet 10 mg PO QAM RF: 0 omega 4-ghs-sjk-fish oil [Fish Oil] 1,000 mg (120 mg-180 mg) Capsule 2 cap PO QAM RF: 0 atorvastatin 20 mg Tablet 20 mg PO HS RF: 0 tadalafil 5 mg Tablet 5 mg PO HS RF: 0 Amoxicillin 1 tab PO TID RF: 0 amlodipine 5 mg tablet 5 mg PO QPM RF: 0 Discharge Orders: Discharge Order (Routine); Ordered 02/02/22 Ordered By: Jerzy Neves/Other Patient Handouts: DVT Post Op Prevention Admission Data Admit Date/Time: 01/30/22 13:52 Attending Provider: Jerzy Sun Admit Provider: Jerzy Sun Primary Care Provider: Marcelo Lowry Other Providers: Carrie Pablo Other Interventions: Discharge Summary Assessment (RN) Last Done: 02/02/22 11:00
== END 2022-02-02 13:36 | disposition home or self-care (01) | DRG 454 ==
LOC: ASU 08:37 → 3E 13:52
DX: Z68.32 Body mass index [BMI] 32.0-32.9, adult; I25.10 Atherosclerotic heart disease of native coronary artery without angina pectoris; D62 Acute posthemorrhagic anemia; Z96.651 Presence of right artificial knee joint; F41.9 Anxiety disorder, unspecified; I10 Essential (primary) hypertension; M48.062 Spinal stenosis, lumbar region with neurogenic claudication; Z87.891 Personal history of nicotine dependence; E78.5 Hyperlipidemia, unspecified; Z86.16 Personal history of COVID-19; Z83.3 Family history of diabetes mellitus; K57.92 Diverticulitis of intestine, part unspecified, without perforation or abscess without bleeding; K21.9 Gastro-esophageal reflux disease without esophagitis; E66.9 Obesity, unspecified

== ENCOUNTER 2023-06-20 10:12 | Inpatient (IN) ==
--- NOTE | 2023-05-30 20:06 | PAT Medication Instructions ---
Medication Instructions Date of Service May 30, 2023 Home Medications Medication Instructions Recorded pantoprazole 40 mg tablet,delayed 40 mg PO QAM #90 tabs 10/30/22 release (Protonix) gabapentin 300 mg capsule 300 mg PO HS #90 caps 03/12/23 amlodipine 10 mg tablet 10 mg PO QPM #90 tabs 04/03/23 atorvastatin 40 mg tablet 40 mg PO HS #90 tabs 04/03/23 escitalopram oxalate 10 mg tablet 10 mg PO QAM #90 tabs 04/03/23 (Lexapro) multivitamin 1 tab PO QAM sumatriptan succinate 100 mg tablet (Imitrex) 1 tab PO DIRECTED PRN Migraine Headache aspirin 81 mg tablet,delayed release (Ecotrin Low Strength) 81 mg PO QAM diclofenac sodium 50 mg tablet,delayed release 50 mg PO BID pantoprazole 40 mg tablet,delayed release (Protonix) 40 mg PO QAM gabapentin 300 mg capsule 300 mg PO HS omega 3-zum-rmq-fish oil 1,000 mg (120 mg-180 mg) capsule (Fish Oil) 1 cap PO QAM amlodipine 10 mg tablet 10 mg PO QPM atorvastatin 40 mg tablet 40 mg PO HS escitalopram oxalate 10 mg tablet (Lexapro) 10 mg PO QAM polyethylene glycol 3350 17 gram oral powder packet (Miralax) 17 g PO QPM calcium carbonate 500 mg-vitamin D3 3.125 mcg (125 unit) tablet 1 tab PO DAILY 3] coenzyme Q10 100 mg capsule (CoQ-10) 100 mg PO QAM levothyroxine 50 mcg tablet 50 mcg PO 0300 losartan 100 mg tablet 100 mg PO QAM magnesium gluconate 27 mg magnesium (500 mg) tablet 27 mg PO HS methylcellulose (laxative) (Citrucel Sugar Free oral powder) 1 tbsp PO QAM sildenafil 100 mg tablet (Viagra) 100 mg PO DAILY PRN sexual activity topiramate 25 mg tablet 25 mg PO HS trazodone 100 mg tablet 100 mg PO HS ASK your surgeon for instructions diclofenac sodium 50 mg tablet,delayed release 50 mg PO BID STOP taking 2 weeks before surgery omega 7-amy-iaf-fish oil 1,000 mg (120 mg-180 mg) capsule (Fish Oil) 1 cap PO QAM coenzyme Q10 100 mg capsule (CoQ-10) 100 mg PO QAM STOP taking 24 hours before surgery sildenafil 100 mg tablet (Viagra) 100 mg PO DAILY PRN sexual activity DO NOT take the morning of surgery multivitamin 1 tab PO QAM calcium carbonate 500 mg-vitamin D3 3.125 mcg (125 unit) tablet 1 tab PO DAILY losartan 100 mg tablet 100 mg PO QAM methylcellulose (laxative) (Citrucel Sugar Free oral powder) 1 tbsp PO QAM Take morning of surgery With a small sip of water, OTHERWISE NOTHING TO EAT OR DRINK AFTER MIDNIGHT: levothyroxine 50 mcg tablet 50 mcg PO 0300 sumatriptan succinate 100 mg tablet (Imitrex) 1 tab PO DIRECTED PRN Migraine Headache (if needed) aspirin 81 mg tablet,delayed release (Ecotrin Low Strength) 81 mg PO QAM (unless surgeon directed otherwise) pantoprazole 40 mg tablet,delayed release (Protonix) 40 mg PO QAM escitalopram oxalate 10 mg tablet (Lexapro) 10 mg PO QAM Take evening before surgery sumatriptan succinate 100 mg tablet (Imitrex) 1 tab PO DIRECTED PRN Migraine Headache (if needed) gabapentin 300 mg capsule 300 mg PO HS amlodipine 10 mg tablet 10 mg PO QPM atorvastatin 40 mg tablet 40 mg PO HS polyethylene glycol 3350 17 gram oral powder packet (Miralax) 17 g PO QPM magnesium gluconate 27 mg magnesium (500 mg) tablet 27 mg PO HS topiramate 25 mg tablet 25 mg PO HS trazodone 100 mg tablet 100 mg PO HS Other Notes If you have any questions please call us at [phone] or [phone] or [phone] or [phone]
--- NOTE | 2023-06-06 12:03 | Anesthesiology Consultation ---
Date of Service June 06, 2023 Assessment & Plan (1) Encounter for pre-operative examination: Chart Review Chart Review: Acceptable Risk for Surgery (pending surgeon ordered PCP clearance (06/07/23) and stress test (being scheduled by [facility])) and Patient seen in Pre Admission Testing - Awaiting surgeon ordered PCP clearance scheduled 06/07/23 (at [facility]) - Awaiting stress test results (being scheduled by [facility] Cardio per 06/07/23 office visit) Per PAT appt on 06/06/23, patient denies any recent travel. No recent Covid exposures, Covid related symptoms, or recent Covid positive tests. Will leave to surgeon's discretion if preop Covid testing needed. Educated on importance of using Covid precautions one week prior to surgery Patient saw cardio 06/07/23= Seen for preop cardiac evaluation. Remains asymptomatic from cardiac standpoint. Activity is limited because of back pain and neurogenic claudication. Most days he is able to walk at least 1 mile. Patient does not have symptoms attributable to his baseline sinus bradycardia. BP has been well-controlled. Chronically bradycardic even though he is not on any negative chronotropic medications. Preop EKG from 06/06/2023 reviewed. Even though patient is completely asymptomatic from cardiac standpointpatient does have borderline distal left main coronary artery stenosis as noted with September 2021 cardiac catheterization. Due to the location of stenosisrepeat stress testing is indicated. Will be scheduled for stress echocardiogram in near future prior to surgery. "Based on his functional status without limiting cardiopulmonary symptoms, normal LV systolic function, stable EKG tracing, and the fact that he tolerated lumbar spine surgery in January 2022 without cardiac complications --patient will most likely be an acceptable surgical risk to proceed with surgery as scheduled. However to further risk stratify, we will do a stress echocardiogram in light of his 50% left main coronary artery stenosis. Provided his stress test shows no ischemia, he is an acceptable surgical risk to proceed with surgery provided intake and usual dose of Amlodipine on the morning of surgery with sips of water." Teaching & Discussion Pre-Anesthesia Teaching/Discussion Notes: Instructed NPO after midnight before surgery,except medications with 15 cc of water. Medication instructions provided according to the PAT guidelines. History Surgery Operation Date: 06/20/23 07:45 Proposed Procedures p L3-S1 Revision Decompression and Fusion, Spinal Cord Monitoring - Jerzy Sun, DO Height/Weight Height: 6 ft 2 in Weight: 116.1 kg Allergies Allergy/AdvReac Type Severity Reaction Status Date / Time No Known Allergies Allergy Verified 06/07/23 09:51 Medications Home Medications Medication Instructions Recorded Confirmed Last Taken multivitamin 1 tab PO QAM 11/13/18 06/07/23 01/22/22 sumatriptan succinate 100 mg 1 tab PO DIRECTED PRN Migraine 11/13/18 06/07/23 12/29/21 tablet (Imitrex) Headache aspirin 81 mg tablet,delayed 81 mg PO QAM 03/22/21 06/07/23 01/15/22 release (Ecotrin Low Strength) diclofenac sodium 50 mg 50 mg PO BID 09/28/22 06/07/23 Unknown tablet,delayed release pantoprazole 40 mg tablet,delayed 40 mg PO QAM #90 tabs 10/30/22 06/07/23 Unknown release (Protonix) gabapentin 300 mg capsule 300 mg PO HS #90 caps 03/12/23 06/07/23 Unknown omega 3-rxb-vjf-fish oil 1,000 mg 1 cap PO QAM 03/19/23 06/07/23 Unknown (120 mg-180 mg) capsule (Fish Oil) amlodipine 10 mg tablet 10 mg PO QPM #90 tabs 04/03/23 06/07/23 Unknown atorvastatin 40 mg tablet 40 mg PO HS #90 tabs 04/03/23 06/07/23 Unknown escitalopram oxalate 10 mg tablet 10 mg PO QAM #90 tabs 04/03/23 06/07/23 Unknown (Lexapro) polyethylene glycol 3350 17 gram 17 g PO QPM 04/05/23 06/07/23 Unknown oral powder packet (Miralax) calcium carbonate 500 mg-vitamin 1 tab PO DAILY 05/30/23 06/07/23 Unknown D3 3.125 mcg (125 unit) tablet coenzyme Q10 100 mg capsule 100 mg PO QAM 05/30/23 06/07/23 Unknown (CoQ-10) levothyroxine 50 mcg tablet 50 mcg PO 0300 05/30/23 06/07/23 Unknown losartan 100 mg tablet 100 mg PO QAM 05/30/23 06/07/23 Unknown magnesium gluconate 27 mg 27 mg PO HS 05/30/23 06/07/23 Unknown magnesium (500 mg) tablet methylcellulose (laxative) 1 tbsp PO QAM 05/30/23 06/07/23 Unknown (Citrucel Sugar Free oral powder) sildenafil 100 mg tablet (Viagra) 100 mg PO DAILY PRN sexual activity 05/30/23 06/07/23 Unknown topiramate 25 mg tablet 25 mg PO HS 05/30/23 06/07/23 Unknown trazodone 100 mg tablet 100 mg PO HS 05/30/23 06/07/23 Unknown Past Medical History Medical History Benign localized prostatic hyperplasia with lower urinary tract symptoms (LUTS) Bradycardia Chronic, baseline HR in 45-50s per pt, asymptomatic CAD (coronary artery disease) Nonobstructive moderate left main CAD per 10/26/2021 cath. Medical therapy recommended. Chronic back pain Depression Diverticulitis hx - no problems recently GERD (gastroesophageal reflux disease) WEll controlled and stable History of COVID-19 Positive home Covid test 11/25/21- cough, sore throat, fatigue, fever- treated with Amoxicillin- symptoms resolved Confirmed with PCR test 12/06/21= positive Hyperlipidemia Hypertension Hypothyroidism Insomnia Lumbar spinal stenosis Migraine hx Obesity Prediabetes Diet controlled Exercise / Class Metabolic Activity II 4-5 Yardwork/Stairs/Walk up hill (one flight of stairs - no chest pain or SOB ) Past Family History Family History Aunt Diabetes Father Heart disease Myocardial infarction Mother Colon cancer, Onset Age: 78 Hypertension Other No family history of adverse response to anesthesia Denies family history of Ovarian cancer Prostate cancer Breast cancer Past Surgical History Surgical History History of cardiac cath 09/2021 at [facility]. no stents. cardiac cath was due to a positive stress test, patient was asymptomatic. History of cataract surgery bilateral History of dental surgery History of difficult intubation Laparoscopic umbilical hernia repair with mesh (08/07/17): Grade view 2 with glidescope #3, ETT 8.0 at [facility] History of meniscectomy of left knee History of meniscectomy of right knee History of revision of total knee arthroplasty (10/2018) Right TKA revision (11/26/18): SAB at L3-L4 (x1 attempt) + PNB at [facility] History of total right knee replacement Hx of hand surgery R hand, trigger finger x 2 Hx of inguinal hernia repair RT/LEFT Hx of LASIK Hx of umbilical hernia repair Status post lumbar spinal fusion (01/30/22) L3-S1 decompression and fusion, interbody cage L3-S1 with bone graft Past Anesthesia History No Hx of Anesthesia Complications (with exception to difficulty ) and No Family Hx of Anesthesia Complications History of PONV No Hx of PONV and No Hx of Motion Sickness Social History Smoking Status: Former smoker tobacco type: cigarettes Do You Dip or Chew Tobacco: No Smoking End Date: Hx Alcohol Use: Yes Alcohol type: wine alcohol intake frequency: holidays/special occasions only Hx Substance Use: No substance use type: does not use Review of Systems Chronic stable/mild cough- feels allergy related Patient denies chest pain, shortness of breath, dyspnea on exertion, cough, wheezing, palpitations. No hx of seizures, stroke, [place], apnea/snoring. No hx of blood clots or blood transfusions Physical Exam Vital Signs VITALS BP 134/81 P 46 TEMP 97.7 SP02 97% RESP 16 Constitutional no acute distress ENMT Mouth: no TMJ clicking Thyromental Distance: > or= 3.5 Finger Breadths (3.5) Mallampati Class: II Permanent implant on side teeth and molars Neck neck extension not limited Respiratory normal respiratory effort; no respiratory distress Auscultation: lungs clear to auscultation bilaterally; no wheezes Cardiovascular Rate/Rhythm: regular rate and regular rhythm Heart Sounds: no murmur Vessels: no carotid bruit Musculoskeletal Spine: + pain with cervical ROM (mild to upper back ) Extremities: extremities normal to inspection Psychiatric Orientation: alert Lab Results Anesthesia Preop Results Results Anesthesia Widget: WBC 6.00 K/ul (4.8-10.8) 06/06/23 Hgb 14.3 g/dl (14.0-18.0) 06/06/23 Hct 40.5 % (42.0-52.0) L 06/06/23 Plt 205 K/uL (130-400) 06/06/23 Na 139 mmol/L (136-145) 06/06/23 K 3.7 mmol/L (3.5-5.1) 06/06/23 Cl 106 mmol/L (98-107) 06/06/23 CO2 26 mmol/L (21-32) 06/06/23 BUN 22 mg/dl (6-23) 06/06/23 Creat 1.21 mg/dl (0.6-1.4) 06/06/23 Glucose Level 93 mg/dl (70-99(Fasting)) 06/06/23 PT 11.4 Seconds (9.0-12.0) 06/06/23 PTT 27.3 Seconds (21.0-31.0) 06/06/23 INR 1.0 (0.9-1.1) 06/06/23 TSH 0.310 uIu/ml (0.300-4.500) 04/12/23 HA1c 5.9 % (4.5-5.6) H 06/06/23 Urine Color Yellow 06/06/23 Urine Appearance Clear (Clear) 06/06/23 Urine pH 7.0 (4.5-7.5) 06/06/23 Urine Specific Keno 1.012 (1.000-1.030) 06/06/23 Urine Protein Negative (Negative) 06/06/23 Urine Glucose (UA) Negative (Negative) 06/06/23 Urine Ketones Negative (Negative) 06/06/23 Urine Blood Negative (Negative) 06/06/23 Urine Nitrite Negative (Negative) 06/06/23 Urine Bilirubin Negative (Negative) 06/06/23 Urine Urobilinogen Negative (Negative) 06/06/23 Urine Leukocyte Esterase Negative (Negative) 06/06/23 Blood Type O Positive 06/06/23 Antibody Screen NEGATIVE 06/06/23 Testing Electrocardiogram Date: 06/06/23 Marked sinus bradycardia at 44bpm Incomplete RBBB Nonspecific ST abnormality When compared to EKG from Nov 21, 2018- no significant change was found Chest X-Ray Date: 06/06/23 Findings: + NAD FINDINGS: PA and lateral chest radiographs are compared to study dated 12/13/2021. The cardiomediastinal silhouette is unremarkable. There is mild bibasilar scarring/atelectasis. The lungs and pleural spaces are Y clear. There is no pneumothorax. The skeletal structures are osteopenic. The bony thorax appears intact. Fusion hardware is seen in the lumbar spine. Stress Test Date: 09/27/21 Type: exercise (Echo) Resting EF: 55-60% Resting LV Function: normal Valvular Disease: MR (Mild) Abnormal exercise echocardiogram with evidence of inducible ischemia. Significant baseline hypertension. MPHR 91%. 7 METS achieved. Cardiac Catheterization Date: 10/26/21 Left main: Left main coronary artery was normal in size and caliber and trifurcated into the left anterior descending and a very high OM branch and a left circumflex. There was approximately 50% stenosis at the distal left main. Left anterior descending colon left anterior descending was a large transapical vessel. It produced a large first diagonal branch and 2 smaller additional diagonal branches. No obstructive disease in this vessel Left circumflex: The left circumflex was a codominant vessel. It produced a high and large branching OM1 and a medium sized codominant PDA. There were luminal irregularities but no discrete stenosis in the left circumflex Right coronary artery: The right coronary artery had luminal irregularities and a discrete 60 to 70% stenosis in a distal branch. Plan: invasive evaluation of distal left main Cardiac Cath 10/26/21 (to further evaluation distal LM vessel): Summary: 1. Nonobstructive moderate left main coronary artery disease (FFR 0.84). Recommendations: Continued ASCVD risk factor modification per Dr. Iglesias, Dr. Lowry.
[~2023-06-20 10:12] MED LIST changes: +LR 60ML/HR IV SCH; +ceFAZolin 2000MG 2,000 MG/15 ML SYR IV SCH
[2023-06-20] MEDS ORDERED: fentaNYL citrate PF 100 MCG/2 ML VIAL ONE ×2 (11:07→14:13)
[2023-06-20] MEDS ORDERED: ePHEDrine sulfate 50 MG/ML AMP IV PRN (11:15)
[2023-06-20] MEDS ORDERED: ATROPINE SULFATE 0.1 MG/ML 10ML SYR IV PRN (11:15)
--- NOTE | 2023-06-20 11:49 | History & Physical Bridge Note ---
Date of Service June 20, 2023 History & Physical Bridge Note I have examined the patient, reviewed the History & Physical and in the interval since the performance of the History & Physical I have noted the following changes of clinical significance: no changes noted
--- NOTE | 2023-06-20 11:50 | History & Physical Report ---
Date of Service June 20, 2023 Assessment & Plan (1) Lumbar spinal stenosis: Plan: L3-S1 revision decompression and fusion History of Present Illness Chief Complaint: Back and leg pain Primary Care Provider: Mavis Zamora DO This is a 73-year-old male well-known to me presents to consistent back pain has evidence of a nonunion is here for revision surgery. Allergies Allergy/AdvReac Type Severity Reaction Status Date / Time No Known Allergies Allergy Verified 06/20/23 10:45 Home Medications Medication Instructions Recorded Confirmed Type multivitamin 1 tab PO QAM 11/13/18 06/20/23 History sumatriptan succinate 100 mg 1 tab PO DIRECTED PRN Migraine 11/13/18 06/20/23 History tablet (Imitrex) Headache aspirin 81 mg tablet,delayed 81 mg PO QAM 03/22/21 06/20/23 History release (Ecotrin Low Strength) diclofenac sodium 50 mg 50 mg PO BID 09/28/22 06/20/23 History tablet,delayed release pantoprazole 40 mg tablet,delayed 40 mg PO QAM #90 tabs 10/30/22 06/20/23 Rx release (Protonix) omega 7-ddf-efm-fish oil 1,000 mg 1 cap PO QAM 03/19/23 06/20/23 History (120 mg-180 mg) capsule (Fish Oil) amlodipine 10 mg tablet 10 mg PO QPM #90 tabs 04/03/23 06/20/23 Rx atorvastatin 40 mg tablet 40 mg PO HS #90 tabs 04/03/23 06/20/23 Rx escitalopram oxalate 10 mg tablet 10 mg PO QAM #90 tabs 04/03/23 06/20/23 Rx (Lexapro) polyethylene glycol 3350 17 gram 17 g PO QPM 04/05/23 06/20/23 History oral powder packet (Miralax) calcium carbonate 500 mg-vitamin 1 tab PO DAILY 05/30/23 06/20/23 History D3 3.125 mcg (125 unit) tablet coenzyme Q10 100 mg capsule 100 mg PO QAM 05/30/23 06/20/23 History (CoQ-10) levothyroxine 50 mcg tablet 50 mcg PO 0300 05/30/23 06/20/23 History losartan 100 mg tablet 100 mg PO QAM 05/30/23 06/20/23 History magnesium gluconate 27 mg 27 mg PO HS 05/30/23 06/20/23 History magnesium (500 mg) tablet (Mag-G) methylcellulose (laxative) 1 tbsp PO QAM 05/30/23 06/20/23 History (Citrucel Sugar Free oral powder) sildenafil 100 mg tablet (Viagra) 100 mg PO DAILY PRN sexual activity 05/30/23 06/20/23 History trazodone 100 mg tablet 100 mg PO HS #90 tabs 06/07/23 06/20/23 Rx gabapentin 300 mg capsule 300 mg PO HS #90 caps 06/10/23 06/20/23 Rx topiramate 25 mg tablet (Topamax) 25 mg PO HS 06/20/23 06/20/23 History Past Med/Surg History Medical History Benign localized prostatic hyperplasia with lower urinary tract symptoms (LUTS) Bradycardia CAD (coronary artery disease) Chronic back pain Depression Diverticulitis GERD (gastroesophageal reflux disease) History of COVID-19 Hyperlipidemia Hypertension Hypothyroidism Insomnia Lumbar spinal stenosis Migraine Obesity Prediabetes Surgical History History of cardiac cath History of cataract surgery History of dental surgery History of difficult intubation History of meniscectomy of left knee History of meniscectomy of right knee History of revision of total knee arthroplasty (10/2018) History of total right knee replacement Hx of hand surgery Hx of inguinal hernia repair Hx of LASIK Hx of umbilical hernia repair Status post lumbar spinal fusion (01/30/22) Family History Aunt Diabetes Father Heart disease Myocardial infarction Mother Colon cancer, Onset Age: 78 Hypertension Other No family history of adverse response to anesthesia Denies family history of Ovarian cancer Prostate cancer Breast cancer Social History Smoking Status: Former smoker Tobacco Type: Cigarettes Age Quit Using Tobacco: 30; packs per day: 1; Smoking End Date: ; Second Hand Exposure: Yes ( A CHILD); Do You Dip or Chew Tobacco: No; Tobacco Cessation Education Requested by Patient: No Hx Alcohol Use: Yes Alcohol type: wine Alcohol Intake Frequency: Monthly or Less Hx Substance Use: No Preferred Language: Danish Communication Ability: Effective Contracts Director Required: No Beliefs That Will Affect Care: None marital status: Current Living Situation: Spouse 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 Other Information That Helps Us Care for You: No Feels Safe at Home: Yes Safety Concerns: Feels Safe At This Time Diet: regular Dental Care, Regularly: Yes Physical Activity Frequency: 3-4 Times per Week Physical Activity Frequency Comment: goes to the gym 4x weekly Seatbelt Use: always Sunscreen Use: Yes Assistive Devices: Other Assistive Devices Comment: front upper and lower dental implants Physical Exam Physical Exam: Patient is alert and oriented Heart regular rhythm Lungs clear Results & Data Results & Data Vital Signs (Past 12 Hours) Vital Signs Temp Pulse Resp BP Pulse Ox O2 Del Method 06/20/23 10:55 36.4 C L 50 L 22 149/88 H 97 Room Air
[2023-06-20] MEDS ORDERED: MIDAZOLAM HCL 1 MG/ML 2ML VIAL ONE (12:03)
[2023-06-20] MEDS ORDERED: ceFAZolin 330 MG/ML 1 GM VIAL ONE (12:10)
[2023-06-20] MEDS ORDERED: BUPIVACAINE/EPINEPHRINE 0.25% 1:200,000 30 ML VIAL ONE (12:10)
[2023-06-20] MEDS ORDERED: LIDOCAINE 2% 2 ML VIAL/AMP(20MG/ML) INFIL ONE (13:23)
[2023-06-20] MEDS ORDERED: ONDANSETRON INJ 2 MG/ML 2 ML VIAL ONE (13:23)
[2023-06-20] MEDS ORDERED: PROPOFOL IV EMULSION 10 MG/ML 20 ML VIAL IV ONE (13:23)
[2023-06-20] MEDS ORDERED: ROCURONIUM BROMIDE 10 MG/ML 5 ML VIAL IV ONE ×2 (13:23)
[2023-06-20] MEDS ORDERED: DEXAMETHASONE SOD INJ 4 MG/ML VIAL ONE (13:23)
[2023-06-20] MEDS ORDERED: ePHEDrine sulfate 50 MG/ML AMP ONE (13:52)
[2023-06-20] MEDS ORDERED: FLOSEAL HEMOSTATIC MATRIX 10ML TOP ONE (14:12)
[2023-06-20] MEDS ORDERED: SUGAMMADEX SODIUM 200 MG/2 ML VIAL IV ONE (14:17)
--- NOTE | 2023-06-20 14:26 | Operative Report ---
Post Operative Report Pre & Post Diagnosis Operation Date: 06/20/23 11:45 Pre-Op Diagnosis: Failed fusion lumbar spine Post-Op Diagnosis: Same I identified the patient and participated in the time-out.: Yes Procedure Operation Date: 06/20/23 11:45 Actual Procedures #1 removal of posterior segmental instrumentation L3-S1. #2 exploration of fusion L3-S1. #3 revision fusion L3-L4 L5-S1. #4 revision decompression L5-S1. #5 placement posterior instrumentation L3-S1. #6 interbody fusion L5-S1. #7 placement of Spira 15 x 26 mm cage at L5-S1. #8 placement locally harvested morselized autograft and posterior gutters. #9 placement of I factor in the interbody cage and infuse collagen sponge, master graft in the posterior gutters L3-S1. Surgeon Jerzy Sun, DO Planning Director Karin Glaser Estimated Blood Loss 150 Findings See Below The patient is 6 foot 2 weighing over 114 kg with a BMI in excess of 32. The patient's body was did contribute to significant technical difficulty required deeper retractors and longer instruments in order to perform his procedure. This at least 50% increased operative time. Specimens None Indications This is a 73-year-old male presents above-mentioned diagnosis after failing course of nonoperative care is here for surgical invention. Description of Procedure Patient was met with identified informed consent obtained. Patient was then taken to the operative suite underwent a patient placed in a prone position on the [facility] top Amarjit frame. All bony promises well-padded eyes inspected to ensure no external pressure placed upon. This point lumbar spine was prepped and draped in a sterile fashion. Sharp dissection with assistance of Bovie cautery form down to and exposing the remaining lamina and instrumentation from L3-S1. I then proceeded move the hardware bilaterally noticing gross loosening of the L3 and S1 pedicle screws as well as continued motion across the segments consistent with nonunion. #4 revision decompression L5-S1 this is to adequately decompress the exiting nerve roots. Pedicle screws then placed in L3-L4-L5 and S1 levels bilaterally with assistance of fluoroscopy and appropriate sized josé luis placed. By way of a transforaminal approach on the right the remainder of the L5-S1 disc was removed endplates curetted to subcortically bone and a 15 x 26 mm Spira cage with I factor tapped in position. The rods were then locked in final position bilaterally. The transverse processes of L3 L4-5 and sacral ala burred to subcortically bone. Infuse collagen sponge from mass graft locally harvested morselized autograft was placed in the posterior gutters. 15 round LUANA inserted. The incision was then closed with 1 Vicryl to fascia 2-0 Vicryl subcutaneously and 4 Monocryl for final skin closure. Steri-Strips sterile dressing placed. Patient awakened taken to PACU in stable condition. Please note spinal cord monitoring was utilized at the procedure no changes noted. Lastly Karin Glaser was present at the entire surgeon while the patient positioning complex portion of the surgery and final skin closure. I attest to the content of the Intraoperative Record and any orders documented therein. Any exceptions are noted below.
[2023-06-20] MEDS: HYDROmorphone INJ 2 MG/ML SYR/VIAL IV PRN ×2 (15:12→15:17)
--- NOTE | 2023-06-20 16:32 | Anesthesiology Progress Note ---
Date of Service June 20, 2023 Anesthesia Post Procedure Vital Signs Vital Signs: Temp Pulse Resp BP BP Pulse Ox O2 Del Method 06/20/23 16:00 64 22 120/68 98 Nasal Cannula 06/20/23 15:35 57 L 15 125/68 95 Nasal Cannula 06/20/23 15:25 36 C L 64 16 112/65 95 Room Air 06/20/23 15:05 64 16 130/75 96 Room Air 06/20/23 14:55 65 20 128/79 98 Nasal Cannula 06/20/23 15:15 61 12 116/69 93 Room Air 06/20/23 14:45 66 17 138/77 95 Nasal Cannula 06/20/23 14:38 36.3 C L 88 17 147/76 H 98 Nasal Cannula 06/20/23 10:55 36.4 C L 50 L 22 149/88 H 97 Room Air O2 Flow Rate 06/20/23 16:00 2 06/20/23 15:35 2 06/20/23 15:25 06/20/23 15:05 06/20/23 14:55 4 06/20/23 15:15 06/20/23 14:45 4 06/20/23 14:38 4 06/20/23 10:55 Pain Intensity Back: Pain Intensity: 4 Transfer of Care Handoff Completed per policy Notes Mental Status: alert / awake / arousable and participated in evaluation Patient Amnestic to Procedure: Yes Nausea / Vomiting: adequately controlled Pain: adequately controlled Airway Patency, RR, SpO2: stable & adequate BP & HR: stable & adequate Hydration State: stable & adequate Anesthetic Complications: no major complications apparent and Pt Satisfied with anesthetic care
[2023-06-20] MEDS ORDERED: SUMAtriptan succinate 100 MG TAB PO PRN (16:43)
[2023-06-20] MEDS ORDERED: bisacodyL 10 MG SUPP PR PRN (16:43)
[2023-06-20] MEDS ORDERED: ALUMINUM/MAGNESIUM SUSP 30 ML UDC PO PRN (16:43)
[2023-06-20] MEDS ORDERED: SOD PHOSPHATE/SOD BIPHOSPHATE ENEMA 132 ML BTL PR PRN (16:43)
[2023-06-20] MEDS ORDERED: DO NOT ADMINISTER PNEUMOCOCCAL VACCINE PRN (16:43)
[2023-06-20] MEDS ORDERED: diphenhydrAMINE Capsule 25 MG CAP PO PRN (16:43)
[2023-06-20] MEDS ORDERED: ACETAMINOPHEN 500 MG TAB PO PRN (16:43)
[2023-06-20] MEDS ORDERED: MAGNESIUM HYDROXIDE SUSP 30 ML UDC PO PRN (16:43)
[2023-06-20] MEDS ORDERED: METOCLOPRAMIDE HCL INJ 5 MG/ML 2 ML VIAL IV PRN (16:43)
[2023-06-20] MEDS ORDERED: NALOXONE HCL 0.4 MG/1 ML VIAL/CARP IV PRN (16:43)
[2023-06-20] MEDS ORDERED: ONDANSETRON 4 MG OD TAB PO PRN (16:43)
[2023-06-20] MEDS ORDERED: DO NOT ADMINISTER FLU VACCINE PRN (16:43)
[2023-06-20] MEDS ORDERED: FAMOTIDINE 20 MG TAB PO PRN (16:43)
[2023-06-20] MEDS ORDERED: LORazepam 0.5 MG TAB PO PRN (16:43)
[2023-06-20] MEDS ORDERED: HYDROmorphone INJ 1 MG/ML SYRINGE IV PRN (16:43)
[2023-06-20] MEDS ORDERED: hydrOXYzine HCl 25 MG TAB PO PRN (16:43)
[2023-06-20] MEDS ORDERED: ACETAMINOPHEN 1,000 MG/100 ML VIAL IV PRN (16:43)
[2023-06-20] MEDS ORDERED: PROMETHAZINE HCL 12.5 MG in SODIUM CHLORIDE 0.9% 50 ML IV PRN (16:43)
[2023-06-20] MEDS ORDERED: LORazepam 2 MG/1 ML VIAL IV PRN (16:43)
[2023-06-20] MEDS ORDERED: HYDROmorphone INJ 0.5 MG/0.5 ML SYR IV PRN (16:43)
[2023-06-20] MEDS ORDERED: ONDANSETRON INJ 2 MG/ML 2 ML VIAL IV PRN (16:43)
[2023-06-20] MEDS: oxyCODONE HCL IR 5 MG TAB (IMMEDIATE RELEASE) PO PRN ×2 (17:06→22:01)
[2023-06-20] MEDS: LACTATED RINGER'S 1,000 ML IV SCH ×2 (17:08→22:20)
--- NOTE | 2023-06-20 17:09 | Hospitalist Consultation ---
Date of Consultation June 20, 2023 Assessment & Plan (1) Neurogenic claudication due to lumbar spinal stenosis: s/p lumbar decompression revision performed by Dr Snu 06/20. EBL 150ml. Pain/Bowel/VTE management per primary orthopedic team (2) Hypothyroidism: TSH 0.31 in March Continue levothyroxine (3) GERD (gastroesophageal reflux disease): Continue pantoprazole (4) CAD (coronary artery disease): Nonobstructive moderate left main CAD per 10/26/2021 cath. Medical therapy recommended. Never had MA Continue ASA when ok from surgical perspective - no significant redd for this Continue atorvastatin (5) Hypertension: Restart amlodipine tomorrow night Restart losartan tomorrow morning with hold parameters if sBP < 120 Plan Thank you for the consult we will continue to follow along with you History of Present Illness Reason for Consultation: medical management Attending Physician: Jerzy Sun, History of Present Illness Lenin Hernandez is a 73 year old male POD# revision lumbar decompression surgery. Estimated blood loss 150ml. No significant change in pre-operative symptoms. Not yet been out of bed or passing flatus. No acute concerns or questions from the patient. He notes hypertension, depression and GERD usually well controlled. Allergies Allergy/AdvReac Type Severity Reaction Status Date / Time No Known Allergies Allergy Verified 06/20/23 10:45 Home Medications Medication Instructions Recorded Confirmed Type multivitamin 1 tab PO QAM 11/13/18 06/20/23 History sumatriptan succinate 100 mg 1 tab PO DIRECTED PRN Migraine 11/13/18 06/20/23 History tablet (Imitrex) Headache aspirin 81 mg tablet,delayed 81 mg PO QAM 03/22/21 06/20/23 History release (Ecotrin Low Strength) diclofenac sodium 50 mg 50 mg PO BID 09/28/22 06/20/23 History tablet,delayed release pantoprazole 40 mg tablet,delayed 40 mg PO QAM #90 tabs 10/30/22 06/20/23 Rx release (Protonix) omega 8-mzl-zsc-fish oil 1,000 mg 1 cap PO QAM 03/19/23 06/20/23 History (120 mg-180 mg) capsule (Fish Oil) amlodipine 10 mg tablet 10 mg PO QPM #90 tabs 04/03/23 06/20/23 Rx atorvastatin 40 mg tablet 40 mg PO HS #90 tabs 04/03/23 06/20/23 Rx escitalopram oxalate 10 mg tablet 10 mg PO QAM #90 tabs 04/03/23 06/20/23 Rx (Lexapro) polyethylene glycol 3350 17 gram 17 g PO QPM 04/05/23 06/20/23 History oral powder packet (Miralax) calcium carbonate 500 mg-vitamin 1 tab PO DAILY 05/30/23 06/20/23 History D3 3.125 mcg (125 unit) tablet coenzyme Q10 100 mg capsule 100 mg PO QAM 05/30/23 06/20/23 History (CoQ-10) levothyroxine 50 mcg tablet 50 mcg PO 0300 05/30/23 06/20/23 History losartan 100 mg tablet 100 mg PO QAM 05/30/23 06/20/23 History magnesium gluconate 27 mg 27 mg PO HS 05/30/23 06/20/23 History magnesium (500 mg) tablet (Mag-G) methylcellulose (laxative) 1 tbsp PO QAM 05/30/23 06/20/23 History (Citrucel Sugar Free oral powder) sildenafil 100 mg tablet (Viagra) 100 mg PO DAILY PRN sexual activity 05/30/23 06/20/23 History trazodone 100 mg tablet 100 mg PO HS #90 tabs 06/07/23 06/20/23 Rx gabapentin 300 mg capsule 300 mg PO HS #90 caps 06/10/23 06/20/23 Rx topiramate 25 mg tablet (Topamax) 25 mg PO HS 06/20/23 06/20/23 History Patient History Medical History (Updated 06/20/23 @ 17:32 by Warren Dias MD) Benign localized prostatic hyperplasia with lower urinary tract symptoms (LUTS) Bradycardia Chronic, baseline HR in 45-50s per pt, asymptomatic CAD (coronary artery disease) Nonobstructive moderate left main CAD per 10/26/2021 cath. Medical therapy recommended. Chronic back pain Depression Diverticulitis hx - no problems recently GERD (gastroesophageal reflux disease) WEll controlled and stable History of COVID-19 Positive home Covid test 11/25/21- cough, sore throat, fatigue, fever- treated with Amoxicillin- symptoms resolved Confirmed with PCR test 12/06/21= positive Hyperlipidemia Hypertension Hypothyroidism Insomnia Lumbar spinal stenosis Migraine hx Obesity Prediabetes Diet controlled Surgical History History of cardiac cath 09/2021 at [facility]. no stents. cardiac cath was due to a positive stress test, patient was asymptomatic. History of cataract surgery bilateral History of dental surgery History of difficult intubation Laparoscopic umbilical hernia repair with mesh (08/07/17): Grade view 2 with glidescope #3, ETT 8.0 at [facility] History of meniscectomy of left knee History of meniscectomy of right knee History of revision of total knee arthroplasty (10/2018) Right TKA revision (11/26/18): SAB at L3-L4 (x1 attempt) + PNB at [facility] History of total right knee replacement Hx of hand surgery R hand, trigger finger x 2 Hx of inguinal hernia repair RT/LEFT Hx of LASIK Hx of umbilical hernia repair Status post lumbar spinal fusion (01/30/22) L3-S1 decompression and fusion, interbody cage L3-S1 with bone graft Family History Aunt Diabetes Father Heart disease Myocardial infarction Mother Colon cancer, Onset Age: 78 Hypertension Other No family history of adverse response to anesthesia Denies family history of Ovarian cancer Prostate cancer Breast cancer Social History Smoking Status: Former smoker Tobacco Type: Cigarettes Age Quit Using Tobacco: 30; packs per day: 1; Smoking End Date: ; Second Hand Exposure: Yes ( A CHILD); Do You Dip or Chew Tobacco: No; Tobacco Cessation Education Requested by Patient: No Hx Alcohol Use: Yes Alcohol type: wine Alcohol Intake Frequency: Monthly or Less Hx Substance Use: No Preferred Language: Australian Communication Ability: Effective Lift Driver Required: No Beliefs That Will Affect Care: None marital status: Current Living Situation: Spouse 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 Other Information That Helps Us Care for You: No Feels Safe at Home: Yes Safety Concerns: Feels Safe At This Time Diet: regular Dental Care, Regularly: Yes Physical Activity Frequency: 3-4 Times per Week Physical Activity Frequency Comment: goes to the gym 4x weekly Seatbelt Use: always Sunscreen Use: Yes Assistive Devices: Other Assistive Devices Comment: front upper and lower dental implants Review of Systems Review of Systems: All systems reviewed & are unremarkable except as noted in HPI & below Physical Exam Constitutional: WD/WN, vitals as above Respiratory: normal respiratory effort, lungs clear to auscultation Cardiovascular: RRR, no murmur, no edema Gastrointestinal (Abdomen): normal bowel sounds, soft, nontender, no hepatosplenomegaly Psychiatric: A+Ox3, euthymic affect Results & Data Results & Data Vital Signs (Past 12 Hours) Vital Signs Temp Pulse Resp BP BP Pulse Ox O2 Del Method 06/20/23 17:02 60 16 121/75 93 Room Air 06/20/23 16:00 64 22 120/68 98 Nasal Cannula 06/20/23 15:35 57 L 15 125/68 95 Nasal Cannula 06/20/23 15:25 36 C L 64 16 112/65 95 Room Air 06/20/23 15:05 64 16 130/75 96 Room Air 06/20/23 14:55 65 20 128/79 98 Nasal Cannula 06/20/23 15:15 61 12 116/69 93 Room Air 06/20/23 14:45 66 17 138/77 95 Nasal Cannula 06/20/23 14:38 36.3 C L 88 17 147/76 H 98 Nasal Cannula 06/20/23 10:55 36.4 C L 50 L 22 149/88 H 97 Room Air O2 Flow Rate 06/20/23 17:02 06/20/23 16:00 2 06/20/23 15:35 2 06/20/23 15:25 06/20/23 15:05 06/20/23 14:55 4 06/20/23 15:15 06/20/23 14:45 4 06/20/23 14:38 4 06/20/23 10:55 PG Care Time/CCT Total # of Minutes Spent Total Time Spent with Patient: Total time spent is greater than 50% in coordination of care (as documented) at patient's floor/unit and/or counseling patient: Coding Level of Care Code 34942 IN/OBS CONSULT LVL 3,45M Diagnoses Neurogenic claudication due to lumbar spinal stenosis M48.062 Hypothyroidism E03.9 GERD (gastroesophageal reflux disease) K21.9 CAD (coronary artery disease) I25.10 Hypertension I10
--- NOTE | 2023-06-20 19:16 | Fluoroscopy Report ---
FL lumbar spine 2-3V CLINICAL HISTORY: L3-S1 DECOMP/FUSION COMPARISON STUDY: 01/30/2022 FLUOROSCOPY TIME: 6.8 seconds FLUOROSCOPY IMAGES: 4 EXPOSURE DOSE: 6.35 mGy FINDINGS: Posterior interbody josé luis and screw fusion with discectomy changes noted, exact numbering is not definitive based on magnification of the images. The hardware appears intact. Multilevel spondylo tic spurring. No acute fracture identified. Indeterminate small linear radiopaque focus is noted michael cent to the most inferior discectomy level on the left. Note that the images were submitted following completion of the surgery. IMPRESSION: Fluoroscopic assistance as above. ACT 112: Negative or not required by law. Electronically signed by: Vitaly Sheehan M.D. 06/20/2023 7:13 PM
[2023-06-20] MEDS: traMADol HCL 50 MG TABLET PO PRN (20:11)
[2023-06-20] MEDS: ceFAZolin 2000MG 2,000 MG/15 ML SYR IV SCH (20:11)
[2023-06-20] MEDS: ATORVASTATIN 40 MG TAB PO SCH (20:12)
[2023-06-20] MEDS: GABAPENTIN 300 MG CAP PO SCH (20:13)
[2023-06-20] MEDS: DOCUSATE SODIUM/SENNA 50/8.6MG TAB PO SCH (20:13)
[2023-06-20] MEDS: TOPIRAMATE 25 MG TAB PO SCH (20:14)
[2023-06-20] MEDS ORDERED: amLODIPine BESYLATE 5 MG TAB PO SCH (21:00)
[2023-06-20] MEDS ORDERED: NON-FORMULARY MEDICATION (Magnesium Gluconate [Mag-G] 27 mg magnesium (500 mg) tablet) PO SCH (21:00)
[2023-06-20] MEDS: traZODone HCL 100 MG TAB PO SCH (22:02)
[2023-06-21] MEDS: ceFAZolin 2000MG 2,000 MG/15 ML SYR IV SCH (04:45)
[2023-06-21] MEDS: POLYETHYLENE (MIRALAX) 17 GM PACK PO SCH ×3 (06:34→17:11)
[2023-06-21] MEDS: LEVOTHYROXINE SODIUM 50 MCG TABLET PO SCH (06:35)
[2023-06-21] MEDS: MULTIVITAMIN TAB PO SCH (08:10)
[2023-06-21] MEDS: ASPIRIN 81 MG ECTAB PO SCH (08:10)
[2023-06-21] MEDS: oxyCODONE HCL IR 5 MG TAB (IMMEDIATE RELEASE) PO PRN ×3 (08:10→20:10)
[2023-06-21] MEDS: LOSARTAN POTASSIUM 50 MG TAB PO SCH (08:11)
[2023-06-21] MEDS: PANTOprazole 40 MG TAB PO SCH (08:11)
[2023-06-21] MEDS: CALCIUM 600MG + VIT D 400 IU TAB PO SCH (08:11)
[2023-06-21] MEDS: ESCITALOPRAM OXALATE 10 MG TAB PO SCH (08:11)
[2023-06-21] MEDS: dexAMETHasone 6 MG in SYRINGE 0 ML IV SCH (08:11)
[2023-06-21] MEDS: LACTATED RINGER'S 1,000 ML IV SCH (08:13)
--- NOTE | 2023-06-21 08:42 | Hospitalist Progress Note ---
Date of Service June 21, 2023 Assessment & Plan (1) Neurogenic claudication due to lumbar spinal stenosis: Plan: POD# 1 #1 removal of posterior segmental instrumentation L3-S1. #2 exploration of fusion L3-S1. #3 revision fusion L3-L4 L5-S1. #4 revision decompression L5- S1. #5 placement posterior instrumentation L3-S1. #6 interbody fusion L5-S1. #7 placement of Spira 15 x 26 mm cage at L5-S1. #8 placement locally harvested morselized autograft and posterior gutters. #9 placement of I factor in the interbody cage and infuse collagen sponge, master graft in the posterior gutters L3-S1. EBL 150cc WBC 14.69, likely from steroids, on decadron. Remains afebrile Hgb 14.3--> 11.5, acute blood loss anemia from surgery/dilutional aspect from IVF suspected * EBL 150cc, LUANA output 375cc thus far and need to monitor. * No lightheaded/dizziness/CP/SOb reported Pain/Bowel/VTE management per primary orthopedic team. PT/OT consults pending Patient reports anticipating discharge on Saturday. Doing well. Rec to monitor hgb/LUANA output but doing well otherwise. Medicine will follow up with morning labs/likely able to sign off if doing well.Please call with any questions/concerns in the meantime. (2) Hypothyroidism: Plan: TSH 0.31 in March, remains on levothyroxine 50mcg daily (3) GERD (gastroesophageal reflux disease): Plan: Continue pantoprazole (4) CAD (coronary artery disease): Plan: Nonobstructive moderate left main CAD per 10/26/2021 cath. -- medical therapy recommended. Continue ASA when ok from surgical perspective - no significant redd for this Continue atorvastatin (5) Hypertension: Plan: Amlodipine to resume evening 06/21, losartan resumed for this morning (BP was 115/69, labs pending from this am -- monitor for need to hold) -> BP improved 125/74 and no symptoms Plan Thank you for allowing hospitalist service to participate in the care of Mr Hernandez. Medicine will follow up with morning labs/likely able to sign off if doing well. Please call with any questions/concerns in the meantime. Admission and Anticipated Discharge Date Admission Date: June 20, 2023 Supervising Physician Co-Signing Physician Notes The patient was not seen by me. The chart was reviewed. Case discussed with LETICIA Medina. Agree with assessment and plan Subjective Eval around 11:30, doing well. Waiting for something for pain as he just got done working with therapy, walked the halls. Reported getting up out of bed to the chair. Prior back surgery 18months ago w/ bursitis for 2-3 months following different than back pain, which never resolved. Currently s/p revision and reports symptoms feel improved. No fever/chills, chest pain, shortness of breath, abdominal pain/nausea. Reports altman just removed about an hour ago, not urinated yet. ANticipating discharge home on Saturday per patient as he discussed w/ Dr Sun as he was just in the room. Questions/concerns addressed at this time. Physical Exam Physical Exam: General WN/WD male sitting up in bed, NAD HEENT; head normocephalic, atraumatic, mmm, trachea midline Resp; CTA, no w/c/r, on room air CV: RRR, no significant edema/calf tenderness, pulses palpable, cecille hose in place GI: +BS, soft/NT : altman reportedly just removed MSK/Neuro: dressing to back c/d/i, some shadowing on upper right aspect of dressing but no saturation, LUANA w/ ~75cc bloody output, NVI, strength plantar/dorsiflexion intact, possible slightly decreased on the left compared to the right the plantarflexion Psych: AOx3, cooperative with exam Results & Data Results & Data Vital Signs (Past 12 Hours) Vital Signs Temp Pulse Pulse Resp BP BP Pulse Ox 06/21/23 07:52 36.6 C 60 16 115/69 92 06/21/23 04:00 36.6 C 60 18 109/65 96 06/20/23 23:23 36.7 C 61 18 138/80 96 O2 Del Method 06/21/23 07:52 Room Air 06/21/23 04:00 Room Air 06/20/23 23:23 Room Air Laboratory Results 06/21/23 06/21/23 06/21/23 Range/Units 09:21 09:21 09:21 WBC 14.69 H (4.8-10.8) K/ul RBC 3.67 L (4.70-6.10) M/uL Hgb 11.5 L (14.0-18.0) g/dl Hct 33.2 L (42.0-52.0) % MCV 90.5 (80.0-100.0) fL MCH 31.3 (25.0-34.0) pg MCHC 34.6 (32.0-36.0) g/dL RDW Std Deviation 44.5 (36.4-46.3) fL RDW Coeff of Joi 13.5 (11.5-14.5) % Plt Count 158 (130-400) K/uL MPV 9.8 (9.4-12.4) fL Immature Gran % (Auto) 0.7 % Neut % (Auto) 85.6 % Lymph % (Auto) 5.7 % [place] % (Auto) 7.9 % Eos % (Auto) 0.0 % Baso % (Auto) 0.1 % Neut # (Auto) 12.58 H (1.40-6.50) K/uL Lymph # (Auto) 0.84 L (1.20-3.40) K/uL [place] # (Auto) 1.16 H (0.11-0.59) K/uL Eos # (Auto) 0.00 (0.00-0.50) K/uL Baso # (Auto) 0.01 (0.00-0.20) K/uL Immature Gran # (Auto) 0.10 (0.01-0.20) K/uL Sodium 138 (136-145) mmol/L Potassium 4.1 (3.5-5.1) mmol/L Chloride 108 H (98-107) mmol/L Carbon Dioxide 25 (21-32) mmol/L Anion Gap 5 (3-11) BUN 22 (6-23) mg/dl Creatinine 1.16 (0.6-1.4) mg/dl Est Cr Clr Drug Dosing 78.7 ml/min Est GFR ( Amer) 72.0 ml/min Est GFR (Non-Af Amer) 62.1 ml/min BUN/Creatinine Ratio 19.0 (10-20) Glucose 153 H (70-99(Fasting)) mg/dl Calcium 8.2 L (8.6-10.3) mg/dl Hepatitis C Ab (EIA) Pending Diagnostic Findings Lumbar Spine X-Ray 06/20/23 00:00 FL lumbar spine 2-3V CLINICAL HISTORY: L3-S1 DECOMP/FUSION COMPARISON STUDY: 01/30/2022 FLUOROSCOPY TIME: 6.8 seconds FLUOROSCOPY IMAGES: 4 EXPOSURE DOSE: 6.35 mGy FINDINGS: Posterior interbody josé luis and screw fusion with discectomy changes noted, exact numbering is not definitive based on magnification of the images. The hardware appears intact. Multilevel spondylotic spurring. No acute fracture identified. Indeterminate small linear radiopaque focus is noted adjacent to the most inferior discectomy level on the left. Note that the images were submitted following completion of the surgery. IMPRESSION: Fluoroscopic assistance as above. ACT 112: Negative or not required by law. Electronically signed by: Vitaly Sheehan M.D. 06/20/2023 7:13 PM PG Care Time/CCT Total # of Minutes Spent Total Time Spent with Patient: Total time spent is greater than 50% in coordination of care (as documented) at patient's floor/unit and/or counseling patient: Coding Level of Care Code 15607 SUB INP/OBS CARE 2/35MIN Diagnoses Neurogenic claudication due to lumbar spinal stenosis M48.062 Hypothyroidism E03.9 GERD (gastroesophageal reflux disease) K21.9 CAD (coronary artery disease) I25.10 Hypertension I10
[2023-06-21] MEDS ORDERED: NON-FORMULARY MEDICATION (Coenzyme Q10 [Coq-10] 100 mg Capsule) PO SCH (09:00)
[2023-06-21 09:43] LABS: Basophils # (auto) 0.01 K/uL (0.00-0.20); Basophils % (auto) 0.1 %; Hematocrit (blood only) 33.2 % (42.0-52.0); Hemoglobin 11.5 g/dl (14.0-18.0); Immature Granulocytes % (auto) 0.7 %; Lymphocytes # (auto) 0.84 K/uL (1.20-3.40); Lymphocytes % (auto) 5.7 %; Mean Corpuscular Hemoglobin 31.3 pg (25.0-34.0); Mean Corpuscular Hgb Conc 34.6 g/dL (32.0-36.0); Mean Corpuscular Volume 90.5 fL (80.0-100.0); Mean Platelet Volume 9.8 fL (9.4-12.4); Monocytes # (auto) 1.16 K/uL (0.11-0.59); Monocytes % (auto) 7.9 %; Neutrophils # (auto) 12.58 K/uL (1.40-6.50); Neutrophils % (auto) 85.6 %; Platelet Count 158 K/uL (130-400); RDW Coefficient of Variation 13.5 % (11.5-14.5); RDW Standard Deviation 44.5 fL (36.4-46.3); Red Blood Count 3.67 M/uL (4.70-6.10); White Blood Count 14.69 K/ul (4.8-10.8)
[2023-06-21 09:59] LABS: Calcium 8.2 mg/dl (8.6-10.3); Creatinine Clr Calc Pharmacy 78.7 ml/min; Est GFR (Non-African American) 62.1 ml/min; Potassium 4.1 mmol/L (3.5-5.1)
--- NOTE | 2023-06-21 11:47 | Orthopedic Progress Note ---
Date of Service June 21, 2023 Assessment & Plan (1) Neurogenic claudication due to lumbar spinal stenosis: Plan: At this time we will continue physical therapy monitor his LUANA operatively discharge home later this weekend. Admission and Anticipated Discharge Date Admission Date: June 20, 2023 Subjective Back pain controlled leg pain improved Physical Exam Physical Exam: Patient is comfortable. Is good strength testing. Results & Data Vital Signs (Past 12 Hours) Vital Signs Temp Pulse Pulse Resp BP BP Pulse Ox 06/21/23 11:00 36.5 C 63 17 125/74 95 06/21/23 07:52 36.6 C 60 16 115/69 92 06/21/23 04:00 36.6 C 60 18 109/65 96 O2 Del Method 06/21/23 11:00 Room Air 06/21/23 07:52 Room Air 06/21/23 04:00 Room Air
[2023-06-21] MEDS: traMADol HCL 50 MG TABLET PO PRN (17:11)
[2023-06-21] MEDS: DOCUSATE SODIUM/SENNA 50/8.6MG TAB PO SCH (20:05)
[2023-06-21] MEDS: traZODone HCL 100 MG TAB PO SCH (20:05)
[2023-06-21] MEDS: GABAPENTIN 300 MG CAP PO SCH (20:05)
[2023-06-21] MEDS: TOPIRAMATE 25 MG TAB PO SCH (20:05)
[2023-06-21] MEDS: ATORVASTATIN 40 MG TAB PO SCH (20:05)
[2023-06-21] MEDS ORDERED: amLODIPine BESYLATE 5 MG TAB PO SCH (21:00)
[2023-06-22] MEDS: POLYETHYLENE (MIRALAX) 17 GM PACK PO SCH ×3 (00:48→12:01)
[2023-06-22] MEDS: LEVOTHYROXINE SODIUM 50 MCG TABLET PO SCH (05:42)
[2023-06-22 06:35] LABS: Hematocrit (blood only) 32.2 % (42.0-52.0); Hemoglobin 11.2 g/dl (14.0-18.0); Mean Corpuscular Hemoglobin 31.5 pg (25.0-34.0); Mean Corpuscular Hgb Conc 34.8 g/dL (32.0-36.0); Mean Corpuscular Volume 90.7 fL (80.0-100.0); Mean Platelet Volume 10.2 fL (9.4-12.4); Platelet Count 150 K/uL (130-400); RDW Coefficient of Variation 13.9 % (11.5-14.5); RDW Standard Deviation 46.6 fL (36.4-46.3); Red Blood Count 3.55 M/uL (4.70-6.10); White Blood Count 11.73 K/ul (4.8-10.8)
[2023-06-22 07:08] LABS: BUN Creatinine Ratio 22.5 (10-20); Calcium 8.3 mg/dl (8.6-10.3); Creatinine Clr Calc Pharmacy 89.5 ml/min; Est GFR (African American) 84.1 ml/min; Est GFR (Non-African American) 72.6 ml/min; Potassium 3.5 mmol/L (3.5-5.1)
--- NOTE | 2023-06-22 08:08 | Hospitalist Progress Note ---
Date of Service June 22, 2023 Assessment & Plan (1) Neurogenic claudication due to lumbar spinal stenosis: Plan: POD# 2 #1 removal of posterior segmental instrumentation L3-S1. #2 exploration of fusion L3-S1. #3 revision fusion L3-L4 L5-S1. #4 revision decompression L5- S1. #5 placement posterior instrumentation L3-S1. #6 interbody fusion L5-S1. #7 placement of Spira 15 x 26 mm cage at L5-S1. #8 placement locally harvested morselized autograft and posterior gutters. #9 placement of I factor in the interbody cage and infuse collagen sponge, master graft in the posterior gutters L3-S1. EBL 150cc WBC 14.69, likely from steroids WBC decreasing on repeat, on continued decadron. Remains afebrile Hgb 14.3--> 11.5, acute blood loss anemia from surgery/dilutional aspect from IVF suspected * EBL 150cc, LUANA output 375cc + 165cc * No lightheaded/dizziness/CP/SOb reported Pain/Bowel/VTE management per primary orthopedic team. PT/OT consults Patient did have some numbness/sensation to his 4th/5th digits of hands bilaterally.NVI on exam, no loss of strength/neck pain/decreased ROM. No hx carpel carpal/cubital tunnel and reports having gotten this in the past just not as long lasting. Discussed will add b12 to labs but can consider nerve testing in f/u PCP for underlying cubital/carpal tunnel eval. Also noting diclofenac BID on medication list -- messaged Dr Sun and ok to resume. Monitor response w/ resuming (2) Hypothyroidism: Plan: TSH 0.31 in March, remains on levothyroxine 50mcg daily (3) GERD (gastroesophageal reflux disease): Plan: Continue pantoprazole (4) CAD (coronary artery disease): Plan: Nonobstructive moderate left main CAD per 10/26/2021 cath -- medical therapy recommended. Continue ASA when ok from surgical perspective - no significant redd for this Continue atorvastatin (5) Hypertension: Plan: BP stable 129/82 Continues on amlodipine, losartan Plan Thank you for allowing hospitalist service to participate in the care of Mr Hernandez. Medicine will check B12 and f/u on lab. If normal patient can f/u for EMG testing for further eval. No focal deficit on exam. Will sign off otherwise. Please call with any questions/concerns. Admission and Anticipated Discharge Date Admission Date: June 20, 2023 Supervising Physician Co-Signing Physician Notes The patient was not seen by me. The chart was reviewed. Case discussed with LETICIA Medina. Agree with assessment and plan Subjective Eval this morning, doing well. Pain controlled with ordered medications. Passing gas but no BM. Denied issues w voiding since altman removed. Reporting some numbness in his hands, particularly 4th/5th digits bilaterally. Has had issues in the past but denied lasting as long. Thought he didn't get his gabapentin last night. Strength testing full throughout, sensation intact on exam. Denied hx B12 deficiency. No neck pain. No fever/chills, chest pain, shortness of breath reported. Will alert Dr Sun of patients concerns but does not appear to have any focal findings on exam. Questions/concerns addressed at this time. Physical Exam Physical Exam: General WN/WD male sitting up in bed, NAD, reporting some numbness in his hands(4th/5th digits) HEENT; head normocephalic, atraumatic, mmm, trachea midline Resp; CTA, no w/c/r, on room air CV: RRR, no significant edema/calf tenderness, pulses palpable, cecille hose in place GI: +BS, soft/NT : no altman MSK/Neuro: NVI, strength equal b/l LE, no calf tenderness, LUANA w/ bloody drainage upper extremities - no focal loss of strength, no pronator drift, grip assembler strength equal bilaterally, alternating movements intact, no slurred speech/facial droop. follows commands, no focal neurological deficit appreciated Psych: AOx3, cooperative with exam Results & Data Results & Data Vital Signs (Past 12 Hours) Vital Signs Temp Pulse Resp BP Pulse Ox O2 Del Method 06/21/23 23:32 36.8 C 60 17 142/73 H 97 Room Air Laboratory Results 06/22/23 06/22/23 06/21/23 Range/Units 05:58 05:58 09:21 WBC 11.73 H (4.8-10.8) K/ul RBC 3.55 L (4.70-6.10) M/uL Hgb 11.2 L (14.0-18.0) g/dl Hct 32.2 L (42.0-52.0) % MCV 90.7 (80.0-100.0) fL MCH 31.5 (25.0-34.0) pg MCHC 34.8 (32.0-36.0) g/dL RDW Std Deviation 46.6 H (36.4-46.3) fL RDW Coeff of Joi 13.9 (11.5-14.5) % Plt Count 150 (130-400) K/uL MPV 10.2 (9.4-12.4) fL Immature Gran % (Auto) % Neut % (Auto) % Lymph % (Auto) % [place] % (Auto) % Eos % (Auto) % Baso % (Auto) % Neut # (Auto) (1.40-6.50) K/uL Lymph # (Auto) (1.20-3.40) K/uL [place] # (Auto) (0.11-0.59) K/uL Eos # (Auto) (0.00-0.50) K/uL Baso # (Auto) (0.00-0.20) K/uL Immature Gran # (Auto) (0.01-0.20) K/uL Sodium 139 (136-145) mmol/L Potassium 3.5 (3.5-5.1) mmol/L Chloride 107 (98-107) mmol/L Carbon Dioxide 28 (21-32) mmol/L Anion Gap 4 (3-11) BUN 23 (6-23) mg/dl Creatinine 1.02 (0.6-1.4) mg/dl Est Cr Clr Drug Dosing 89.5 ml/min Est GFR ( Amer) 84.1 ml/min Est GFR (Non-Af Amer) 72.6 ml/min BUN/Creatinine Ratio 22.5 H (10-20) Glucose 100 H (70-99(Fasting)) mg/dl Calcium 8.3 L (8.6-10.3) mg/dl Magnesium 2.0 (1.7-2.4) mg/dl Hepatitis C Ab (EIA) Pending 06/21/23 06/21/23 Range/Units 09:21 09:21 WBC 14.69 H (4.8-10.8) K/ul RBC 3.67 L (4.70-6.10) M/uL Hgb 11.5 L (14.0-18.0) g/dl Hct 33.2 L (42.0-52.0) % MCV 90.5 (80.0-100.0) fL MCH 31.3 (25.0-34.0) pg MCHC 34.6 (32.0-36.0) g/dL RDW Std Deviation 44.5 (36.4-46.3) fL RDW Coeff of Joi 13.5 (11.5-14.5) % Plt Count 158 (130-400) K/uL MPV 9.8 (9.4-12.4) fL Immature Gran % (Auto) 0.7 % Neut % (Auto) 85.6 % Lymph % (Auto) 5.7 % [place] % (Auto) 7.9 % Eos % (Auto) 0.0 % Baso % (Auto) 0.1 % Neut # (Auto) 12.58 H (1.40-6.50) K/uL Lymph # (Auto) 0.84 L (1.20-3.40) K/uL [place] # (Auto) 1.16 H (0.11-0.59) K/uL Eos # (Auto) 0.00 (0.00-0.50) K/uL Baso # (Auto) 0.01 (0.00-0.20) K/uL Immature Gran # (Auto) 0.10 (0.01-0.20) K/uL Sodium 138 (136-145) mmol/L Potassium 4.1 (3.5-5.1) mmol/L Chloride 108 H (98-107) mmol/L Carbon Dioxide 25 (21-32) mmol/L Anion Gap 5 (3-11) BUN 22 (6-23) mg/dl Creatinine 1.16 (0.6-1.4) mg/dl Est Cr Clr Drug Dosing 78.7 ml/min Est GFR ( Amer) 72.0 ml/min Est GFR (Non-Af Amer) 62.1 ml/min BUN/Creatinine Ratio 19.0 (10-20) Glucose 153 H (70-99(Fasting)) mg/dl Calcium 8.2 L (8.6-10.3) mg/dl Magnesium (1.7-2.4) mg/dl Hepatitis C Ab (EIA) PG Care Time/CCT Total # of Minutes Spent Total Time Spent with Patient: Total time spent is greater than 50% in coordination of care (as documented) at patient's floor/unit and/or counseling patient: Coding Level of Care Code 59971 SUB INP/OBS CARE 2/35MIN Diagnoses Neurogenic claudication due to lumbar spinal stenosis M48.062 Hypothyroidism E03.9 GERD (gastroesophageal reflux disease) K21.9 CAD (coronary artery disease) I25.10 Hypertension I10
[2023-06-22] MEDS: ASPIRIN 81 MG ECTAB PO SCH (08:25)
[2023-06-22] MEDS: CALCIUM 600MG + VIT D 400 IU TAB PO SCH (08:26)
[2023-06-22] MEDS: ESCITALOPRAM OXALATE 10 MG TAB PO SCH (08:26)
[2023-06-22] MEDS: MULTIVITAMIN TAB PO SCH (08:26)
[2023-06-22] MEDS: PANTOprazole 40 MG TAB PO SCH (08:26)
[2023-06-22] MEDS: dexAMETHasone 6 MG in SYRINGE 0 ML IV SCH (08:26)
[2023-06-22] MEDS: LOSARTAN POTASSIUM 50 MG TAB PO SCH (08:27)
[2023-06-22] MEDS: oxyCODONE HCL IR 5 MG TAB (IMMEDIATE RELEASE) PO PRN (09:58)
[2023-06-22] MEDS ORDERED: DICLOFENAC SODIUM 25 MG TABDR PO SCH (10:00)
--- NOTE | 2023-06-22 11:03 | Discharge Summary ---
Date of Service June 22, 2023 Admission HPI Per Admitting Provider This is a 73-year-old male well-known to me presents to consistent back pain has evidence of a nonunion is here for revision surgery. Principal Diagnosis Failed lumbar fusion with radiculopathy Discharge Data Allergies Allergy/AdvReac Type Severity Reaction Status Date / Time No Known Allergies Allergy Verified 06/20/23 10:45 Consultations 06/20/23 16:43 Consult Hospitalist Routine Procedures Performed Operation Date: 06/20/23 11:45 Actual Procedures p L3-S1 Revision Decompression and Fusion, Spinal Cord Monitoring(Not Applicable) - Jerzy Sun DO Ordered Studies 06/20/23 [place] lumbar spine 2-3V Routine Hospital Course (1) Neurogenic claudication due to lumbar spinal stenosis: Patient underwent revision fusion and tolerated this well was taken to orthopedic floor postoperative. Postop day 1 is up and ambulating. Postop day #2 postop day #3 pain was well controlled. Extra strength testing. LUANA drain decreasing appropriately. Subsequent discharge home. Discharge orders instructions via chart for review. 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 You may walk to your tolerance. It is good exercise for your legs and back. Expect some back and intermittent leg aches and pains. 2. You may perform "counter-top" level activities (make a sandwich, cristiane with a project, etc.). 3. No bending or lifting of more than 10 pounds or back twisting of any nature (roll like a log when turning in bed). 4. You may ride in a car for 20-30 minutes at a time. No driving until after your first visit with your doctor. 5. Frequent changes of position and restricting sitting to 30 minutes at a time will help limit the amount of back spasms and stiffness you may experience. 6. You may discontinue the use of ambulatory aids (cane, crutches, etc.) once your strength and confidence allow. 7. You may maid cleaning cooking the shower and let water strike your incision when you ar rive home at least once daily. Do not take a tub bath, sit in a hot tub or go into a swimming pool until after your first recheck in the office. SPECIAL CARE INSTRUCTIONS: VERY IMPORTANT TO READ AND REVIEW A. Your surgical incision has been closed with a cosmetic suture under the skin that will dissolve in about 6 weeks. In 14 days, you can use a pair of clean scissors and cut the suture that is left outside of the skin at the ends of your incision. 1. The small skin tapes can be removed 7 days after surgery if they have not fallen off by that point. 2. You may keep the wound open to air as much as possible to promote healing after post-op day number 5 unless told otherwise by your doctor. 3. If you think the wound looks like it is becoming infected (redness or worsening drainage) and/or you are experiencing fever, chill or worsening back pain and muscle spasms, contact the office so that we may evaluate you as soon as possible. B. Complications are uncommon, but please contact us if you have any signs or symptoms of: 1. wound infection (fever higher than 102.5 degrees F, redness, separation of wound, drainage, or increasing pain from the incision) 2. blood clots in legs (pain, swelling, redness and warmth in legs) 3. urinary tract infection (fever higher than 102.5 degrees F, burning upon urination or increased frequency of urination) 4. nerve problems (inability to walk on your toes or heels, numbness, loss of bowel or bladder control) 5. any other symptoms that concern you C. Please call the office at if you have any concerns or questions about your operation or recovery. D. No smoking! Smoking drastically decreases the chance of a solid fusion. E. Do not take any anti-inflammatory medications (Indocin, Advil, Motrin, Aspirin, Naprosyn, etc.) as these may inhibit the chance of a solid fusion. Tylenol is okay to take for pain. MANAGING PAIN AFTER SPINAL SURGERY 1. Narcotic medication is intended for short-term use and will be provided for surgical pain. Surgical pain usually lasts for a period of 4-6 weeks. Narcotic medication includes Percocet, Vicodin, Darvocet, Tylenol #3 or Lortab. 2. Longer-term pain is more appropriately treated with non-narcotic medication such as Tylenol ES. 3. Muscle spasm is not appropriately treated with narcotics. Muscle relaxers such as Soma, Flexeril or Skelaxin can be used along with Tylenol ES. 4. Remember that we all live with some "aches and pains". This is not unusual or uncommon after an injury or as we get older. a. Back pain is expected and may include muscle spasms for 4 to 6 weeks after surgery. The pain should gradually improve. If the pain worsens for no apparent reason, please contact the office. b. Intermittent leg pain may also be experienced and should not be concerned about unless it worsens for no apparent reason. If so, please contact the office. 5. We will provide appropriate medication within the normal guidelines of their prescribed use. We will also be very cautious and aware of potential abuse and extended duration of patients' medication needs. a. Pain medications are for your comfort and to assist with sleep and rest so that the tissue can heal. They are not provided in order to return to normal activity and should not be used through the day. To do so or worsening pain at night can result from ongoing tissue damage and development of tolerance to the prescribed medicine. 6. Please allow 2-3 days to process refills. Prescriptions will not be mailed but must be picked up at the office. FOLLOW UP VISIT: Keep your scheduled follow-up appointment. Any questions, please call the office at . Pending Studies at Discharge: No Stand-Alone Forms: My [facility], Smoking Cessation Medications and DC Order Prescriptions: New tramadol 50 mg tablet 50 mg PO Q6H PRN (Reason: pain, moderate) Qty: 30 0RF oxycodone 5 mg tablet 5 mg PO Q6H PRN (Reason: pain) Qty: 30 0RF Continued amlodipine 10 mg tablet 10 mg PO QPM Qty: 90 2RF atorvastatin 40 mg tablet 40 mg PO HS Qty: 90 2RF escitalopram oxalate [Lexapro] 10 mg tablet 10 mg PO QAM Qty: 90 2RF Hold Instructions: weaning gabapentin 300 mg capsule 300 mg PO HS Qty: 90 1RF aspirin [Ecotrin Low Strength] 81 mg tablet,delayed release (DR/EC) 81 mg PO QAM diclofenac sodium 50 mg tablet,delayed release (DR/EC) 50 mg PO BID trazodone 100 mg tablet 100 mg PO HS Qty: 90 1RF pantoprazole [Protonix] 40 mg tablet,delayed release (DR/EC) 40 mg PO QAM Qty: 90 3RF polyethylene glycol 3350 [Miralax] 17 gram powder in packet 17 g PO QPM multivitamin Tablet 1 tab PO QAM sumatriptan succinate [Imitrex] 100 mg Tablet 1 tab PO DIRECTED PRN (Reason: Migraine Headache) omega 0-[id number]-nfg-fish oil [Fish Oil] 1,000 mg (120 mg-180 mg) capsule 1 cap PO QAM Citrucel Sugar Free Powder 1 tbsp PO QAM coenzyme Q10 [CoQ-10] 100 mg Capsule 100 mg PO QAM sildenafil [Viagra] 100 mg tablet 100 mg PO DAILY PRN (Reason: sexual activity) Rx Instructions: administer 30 minutes to 4 hours before activity levothyroxine 50 mcg tablet 50 mcg PO 0300 losartan 100 mg tablet 100 mg PO QAM magnesium gluconate [Mag-G] 27 mg magnesium (500 mg) tablet 27 mg PO HS calcium carbonate-vitamin D3 500 mg-3.125 mcg (125 unit) Tablet 1 tab PO DAILY topiramate [Topamax] 25 mg tablet 25 mg PO HS Discharge Orders: Discharge Order (Routine); Ordered 06/22/23 Ordered By: Jerzy Sun Admission Data Admit Date/Time: 06/20/23 14:29 Attending Provider: Jerzy Sun Admit Provider: Jerzy Sun Primary Care Provider: Mavis Zamora. Other Providers: Nakul Snowden ; Jose Muñiz
== END 2023-06-22 13:39 | disposition home or self-care (01) | DRG 454 ==
LOC: ASU 10:12 → PACUINP 14:29 → 3W 16:40